=== PATIENT | male | born 1965 | race Two or more races ===

== ENCOUNTER 2022-12-09 15:19 | Outpatient (REF) | payer OTHER, SELFPAY ==
[2022-12-09 15:49] LABS: MANUAL DIFF FLAG NO
[2022-12-09 17:48] LABS: Basophils Absolute Auto 0.1 X10*3/uL (0.0-0.2); Basophils Percent Auto 0.6 % (0-2); Eosinophils Absolute Auto 0.2 X10*3/uL (0.0-0.4); Hematocrit 43.7 % (42.0-52.0); Hemoglobin 14.3 g/dl (14.0-18.0); Imm Gran Abs Auto 0.04 X10*3/uL (0.00-0.03); Imm Gran Pct Auto 0.5 % (0.0-0.4); Mean Corpuscular HGB Conc 32.7 g/dl (31.0-36.0); Mean Corpuscular Hemoglobin 26.9 pg (27.0-33.0); Mean Corpuscular Volume 82.3 fL (80.0-98.0); Mean Platelet Volume 9.6 fL (9.4-12.4); Monocytes Absolute Auto 0.8 X10*3/uL (0.1-1.2); Monocytes Percent Auto 9.8 % (2-11); Neutrophils Absolute Auto 3.8 x10*3/uL (2.0-8.3); Neutrophils Percent Auto 49.1 % (45-73); Platelet Count 241 X10*3/uL (160-400); Red Blood Count 5.31 X10*6/uL (4.60-5.80); Red Cell Distribution Width 13.5 % (11.0-16.0); White Blood Count 7.8 X10*3/uL (4.8-10.8)
[2022-12-09 18:29] LABS: Alanine Aminotransferase 36 U/L (0-40); Albumin Level 4.4 g/dL (3.5-5.0); Alkaline Phosphatase 97 U/L (39-117); Anion Gap 13 (12-20); Aspartate Amino Transferase 22 U/L (5-37); Bilirubin Total 0.6 mg/dL (0.0-1.0); Blood Urea Nitrogen 16 mg/dL (9-16); Calcium 9.7 mg/dL (8.4-10.2); Carbon Dioxide 30 mmol/L (22-29); Chloride 104 mmol/L (96-108); Cholesterol 237 mg/dL; Estimated Glomerular Filt Rate > 60; Glucose Random 86 mg/dL (60-115); HDL Cholesterol 50 mg/dL; LDL Cholesterol Calculated 152 mg/dl; Potassium 4.3 mmol/L (3.3-5.1); Sodium 143 mmol/L (135-145); Triglycerides 178 mg/dL
[2022-12-09 18:45] LABS: PSA,Total (Free>4and<10) 2.56 ng/mL (0.00-4.00); TSH reflex Free T4 0.73 uIU/mL (0.32-4.0)
== END 2022-12-09 15:20 | disposition home or self-care (01) ==
LOC: HO.LAB 15:19
PROVIDERS: PCP Nurse Practitioner Family; Visit Provider Nurse Practitioner Family
DX: Z13.220 Encounter for screening for lipoid disorders (principal); Z13.29 Encounter for screening for other suspected endocrine disorder; Z13.0 Encounter for screening for diseases of the blood and blood-forming organs and certain disorders involving the immune mechanism; Z12.5 Encounter for screening for malignant neoplasm of prostate
CPT/HCPCS: 36415; 80053; 80061; 84153; 84443; 85025

== ENCOUNTER → 2022-12-14 08:05 | Outpatient (BNVA) | payer OTHER, SELFPAY | PROVIDERS: PCP Nurse Practitioner Family; Referring Provider Nurse Practitioner Family; Visit Provider Surgery | DX: K42.9 Umbilical hernia without obstruction or gangrene (principal) | CPT/HCPCS: 99202 ==

== ENCOUNTER 2022-12-27 09:19 | Day surgery (SDC) | payer OTHER, SELFPAY ==
[2022-12-22 10:07] VITALS: BMI 33.0
--- NOTE | 2022-12-26 09:45 | HO.ANESPROP2 ---
HPI - Anesthesia Eval Consult details Narrative: 57yo M for Hernia Repair Umbilical repair mesh PMFSH Active Problems Active Problems: All Active Problems (Updated 12/10/22 @ 07:10 by JACLYN Gupta) Anxiety and depression (Acute) Umbilical hernia (Acute) Asthma (Acute) Essential hypertension (Acute) Past Medical History Medical History Anxiety and depression Asthma Umbilical hernia Family History Family History Father HTN (hypertension) Mother Diabetes Age related osteoporosis Surgical History Surgical History (Updated 12/14/22 @ 08:14 by REYNALDO Sosa) H/O vasectomy Social History Social History Household Members: Friend(s) Housing: Apartment Alcohol intake: current Alcohol intake frequency: a few times a month Patient Tobacco Use Status: Former Tobacco user service: No Current occupational status: employed Cognitive needs: No Hearing needs: No Vision needs: No Meds Allergies Allergy/AdvReac Type Severity Reaction Status Date / Time No Known Allergies Allergy Verified 12/14/22 08:13 Home Medications Medication Instructions Recorded Confirmed Last Taken Type naproxen 500 mg tablet 500 mg PO BID 11/25/22 12/22/22 Unknown History Exam Exam Date and Time: December 26, 2022 0945 Height,Weight and Vital Signs: Height 5 ft 10 in Weight 104.326 kg Pertinent Lab Results Pertinent Lab Results: Laboratory Tests 12/09/22 12/09/22 15:47 15:47 WBC 7.8 Hgb 14.3 Hct 43.7 Plt Count 241 Sodium 143 Potassium 4.3 Chloride 104 Carbon Dioxide 30 H BUN 16 Creatinine 0.85 Assessment and Plan Assessment Anesthesia Assessment: Chart Reviewed
--- NOTE | 2022-12-26 20:18 | MHC.SHP ---
Pre-Procedural Eval Section A Date of Service: 12/27/22 The patient is an INPATIENT: No Changes since office visit: No Cold of Flu in the past 2 weeks, No New Medical Problems, No Changes in Medication and No Patient answered all questions The History & Physical has been completed within 30 days and I have reviewed it.: Yes Section B Chief Complaint: Umbilical hernia without obstruction or gangrene Allergies: Allergies Allergy/AdvReac Type Severity Reaction Status Date / Time No Known Allergies Allergy Verified 12/14/22 08:13 Plan I have reviewed the history and physical and performed a pertinent physical examination on my patient. No changes have occurred unless specified. Time Spent With Patient Time: Total time managing care of this patient today ____ minutes.
[2022-12-27] VITALS (7 sets, daily range): BP systolic 124–163; BP diastolic 78–89; PULSE 65–75; RESP 16–18; TEMP 36.1–36.5; O2SAT 93–97
--- NOTE | 2022-12-27 09:21 | HO.ANESPROP2 ---
HPI - Anesthesia Eval Consult details Narrative: Umbilical hernia repair PMFSH Active Problems Active Problems: All Active Problems (Updated 12/10/22 @ 07:10 by JACLYN Gupta) Anxiety and depression (Acute) Umbilical hernia (Acute) Asthma (Acute) Essential hypertension (Acute) Past Medical History Medical History Anxiety and depression Asthma Umbilical hernia Family History Family History Father HTN (hypertension) Mother Diabetes Age related osteoporosis Family history of problems with anesthesia: No Surgical History Surgical History (Updated 12/14/22 @ 08:14 by REYNALDO Sosa) H/O vasectomy History of Problems with Anesthesia: No Social History Social History Household Members: Friend(s) Housing: Apartment Alcohol intake: current Alcohol intake frequency: a few times a month Patient Tobacco Use Status: Former Tobacco user Use of substances other than those prescribed or required for medical reasons: No Are you DNR?: No Advance Directives: No Advance Directives Information Provided: Yes Recently lost weight without trying: No Nutrition Risks: No Nutritional Risk service: No Current occupational status: employed Cognitive needs: No Hearing needs: No Vision needs: No Meds Allergies Allergy/AdvReac Type Severity Reaction Status Date / Time No Known Allergies Allergy Verified 12/14/22 08:13 Home Medications Medication Instructions Recorded Confirmed Last Taken Type naproxen 500 mg tablet 500 mg PO BID 11/25/22 12/22/22 Unknown History tramadol 50 mg tablet 50 mg PO Q6-8H PRN pain 11/25/22 12/22/22 Unknown History Exam Exam Date and Time: December 27, 2022 0921 Height,Weight and Vital Signs: Height 5 ft 10 in Weight 104.326 kg Airway Mallampati Class: II TM Dist: >3cm Neck ROM: Limited Heart: rrr Lungs: cta Assessment and Plan Assessment Anesthesia Assessment: Anesthesia Plan Discussed and Chart Reviewed Final Anesthetic Review Family History of Problems with Anesthesia: No History of Problems with Anesthesia: No NPO: Yes ASA Class: II Final Preanesthetic Review: No Changes in Pt Med Stat, Meds/Allgs Chart Reviewed, Consent Obtained/Reviewed and Anes Risks/Benef Reviewed Patient Risk: Intermediate Procedure Risk: Intermediate Anesthetic Plan Anesthetic Plan: GA Disposition: Standard PACU
[2022-12-27] MEDS: Lactated Ringers 1,000 ML 100 ML IVCONT (10:07)
--- NOTE | 2022-12-27 12:44 | W.PM.OPN ---
Operative Note Operative Note Date of Service: 12/27/22 Narrative: Preoperative diagnosis: [] incarcerated umbilical hernia Postop diagnosis: [] same Procedure [] repair incarcerated umbilical hernia with Bard mesh Surgeon: [] Gee Foam Rubber Molder: [] varun Parham Type of Anesthesia: [] general Indication for surgery: [] symptomatic enlarging umbilical hernia Findings: [] incarcerated umbilical hernia with omental contents. Patient about the operating room, placed on operative table in a supine position, after adequate level of general anesthesia was induced, the patient abdomen which was moderately corpulent was prepped and draped in usual sterile fashion. Using an infraumbilical curvilinear incision, this carried down through skin, subcutaneous tissue, hernia sac was identified. This was from the posterior aspect of the umbilicus and dissected down to the fascia. Sac was opened and findings were as noted above. The hernia Sac was circumferentially dissected free from the fascia and amputated using Bovie. Similarly the incarcerated omentum was amputated using using Bovie. Fascia margins were cleared. A Bard mesh was placed in this defect and sutured circumferentially from the superficial layer of the mesh to the surrounding fascia using 0 tycron sutures. At completion of the procedure, mesh was in good position with with no tension. The wound Was irrigated, secured hemostasis, and closed in the following manner; posterior aspect of the umbilicus was tacked to the wound floor using up to 3-0 Vicryl sutures. Interrupted inverted dermal 3-0 Vicryl sutures followed by Steri-Strips and sterile dressings were applied. Wound was infiltrated 0.5% Marcaine with epinephrine a completion. Sponge, needle, and instrument counts were reported to be correct. Patient tolerated the procedure well and emerged anesthesia stable condition. EBL minimum
[2022-12-27] MEDS: oxyCODONE HCl Immed Release 5 MG TABLET PO (12:46)
== END 2022-12-27 13:53 | disposition home or self-care (01) ==
PROVIDERS: PCP Nurse Practitioner Family; Visit Provider Surgery
PROC: (CPT 49594; principal; 2022-12-27 11:20)
DX: K42.0 Umbilical hernia with obstruction, without gangrene (principal); J45.909 Unspecified asthma, uncomplicated; F41.8 Other specified anxiety disorders; Z98.52 Vasectomy status; Z79.1 Long term (current) use of non-steroidal anti-inflammatories (NSAID); Z79.899 Other long term (current) drug therapy
CPT/HCPCS: 49594; 88304; C1781; J0131; J0690; J1100; J1885; J2250; J2405; J3010

== ENCOUNTER → 2023-01-05 10:58 | Outpatient (BNVA) | payer OTHER, SELFPAY | PROVIDERS: PCP Nurse Practitioner Family; Visit Provider Surgery ==

== ENCOUNTER 2023-01-09 08:21 | Outpatient (REF) | payer OTHER, SELFPAY ==
[2023-01-09 09:14] LABS: Uric Acid 7.3 mg/dL (3.4-7.0)
== END 2023-01-09 08:22 | disposition home or self-care (01) ==
LOC: HO.LAB 08:21
PROVIDERS: PCP Nurse Practitioner Family; Visit Provider Nurse Practitioner Family
DX: M10.9 Gout, unspecified (principal)
CPT/HCPCS: 36415; 84550

== ENCOUNTER 2023-04-05 15:31 | Outpatient (AMB) | payer OTHER, SELFPAY ==
[2023-04-05 15:50] VITALS: BP 147/94; PULSE 67; BMI 32.8
--- NOTE | 2023-04-05 15:50 | A.OFFVIS_ITS ---
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 male with past medical history of anxiety, asthma, hypertension, umbilical hernia, gout is here today for pre colonoscopy screening.? Patient was sent to us by his PCP.? Patient denies any gastrointestinal symptoms in the past or at present.? Denies any personal or family history of gastrointestinal disease, colon polyps, or cancer.? Denies history of difficulty with sedation or anesthesia in the past.? Negative for history of sleep apnea.? Denies any history of cardiac, renal, pulmonary, or hepatic disease.?? No history of infectious? diseases like hepatitis A, B, C, HIV or tuberculosis.? Patient is not on any anticoagulation therapy. PFSH Medical History Anxiety and depression Asthma Gout Umbilical hernia Surgical History H/O vasectomy Hx of umbilical hernia repair Family History Father HTN (hypertension) Mother Diabetes Age related osteoporosis Social History Household Members: Friend(s) Housing: Apartment Alcohol intake: current Alcohol intake frequency: a few times a month Patient Tobacco Use Status: Former Tobacco user e-Cigarette/Vaping Use: Never Used Second Hand Smoke Exposure: No service: No Current occupational status: employed Cognitive needs: No Hearing needs: No Vision needs: No Review of Systems Const Denies weight gain and Denies weight loss ENT Reports no additional complaints, Denies dysphagia and Denies odynophagia Card Reports no additional complaints Resp Reports no additional complaints GI Denies abdominal pain, Denies belching, Denies melena, Denies bloating, Denies change in bowel habits, Denies dysphagia, Denies excessive flatus, Denies dyspepsia, Denies heartburn, Denies diarrhea, Denies loose stools, Denies nausea, Denies odynophagia and Denies vomiting Reports no additional complaints Musc Reports no additional complaints Neuro Reports no additional complaints Psych Reports no additional complaints Endo Reports no additional complaints Physical Exam Vital Signs: Last Vital Signs Pulse 67 04/05/23 15:50 BP 147/94 H 04/05/23 15:50 BMI result Body Mass Index 32.8 Const General: cooperative, healthy appearing and comfortable Nutritional Appearance: obese Orientation/consciousness: patient oriented x3 Limitations: no limitations HEENT Head: Yes normal to inspection Ears: hearing grossly normal bilaterally General nose exam: Normal external nose present Face and sinus: Yes normal facial exam Mouth: Normal oral and palatal mucosa present Throat: Yes posterior oropharynx normal Eyes General: appearance normal, both eyes and all related structures Eyelids: Yes eyelids normal Conjunctivae: conjunctivae normal Sclerae: sclerae normal Pupils: Equal, round and reactive pupils present Neck Neck: Yes normal visual inspection, Yes full ROM, Yes no lymphadenopathy, Yes trachea midline and Yes supple Thyroid: Thyroid normal Lymphatic: no lymphadenopathy noted Chest Chest palpation & inspection: normal inspection of the chest Resp Effort & Inspection: normal respiratory effort and able to speak in complete sentences Auscultation: clear to auscultation bilaterally Cardio Rate: regular rate Rhythm: regular rhythm Heart sounds: S1 normal heart sound present and S2 normal heart sound present Peripheral pulses: Peripheral pulses 2+ throughout GI Inspection: Yes normal to inspection, No distended and Yes obesity Palpation (GI): No hepatosplenomegaly present and No Rebound tenderness present Percussion: Yes normal to percussion Auscultation: normal bowel sounds Back/Spine/Pelvis Cervical Spine: cervical ROM normal and No cervical muscular tenderness Thoracic/Lumbar Spine: thoracic and lumbar spine normal to inspection Skin General skin exam: no rashes or lesions noted, elasticity normal and turgor normal Neuro General: patient oriented x3 Cranial nerves: Yes Equal, round and reactive pupils present Extrem General: Yes normal to inspection, Yes full ROM and Yes capillary refill normal Psych Appearance: grossly normal Mental Status: mental status grossly normal Speech and movement: Normal speech and movement present Assessment & Plan Assessment & Plan (1) Screen for colon cancer: Code(s): Z12.11 - Encounter for screening for malignant neoplasm of colon Plan: Patient denies any GI, cardiac or respiratory symptoms.? Denies any issues with anesthesia in the past.? Denies any history of sleep apnea.? No history infectious diseases in the past or present.? Not on any anticoagulation therapy.? No family or personal history of colon cancer or polyps.? Patient denies melena, hematochezia, unintentional weight loss or ribbon like stools.? Discussed at length the pre-procedure,? prep, diet & medications as well as what to expect prior, during and after the procedure.?? Stressed the importance of good bowel prep. ?Recommended the use of Vaseline or Calmoseptine OTC & baby wipes with bowel movements to promote comfort.? ?Patient verbalizes understanding and agrees to plan of care.? He was given the opportunity to ask questions and all questions answered.? We will see him after the procedure.? Medications: New bisacodyl (Dulcolax (bisacodyl)) take 2 tabs at noon the day before your colonoscopy 20 mg (4 x 5 mg) PO ONCE 4 tabs 0RF 1 day Z12.11 - Encounter for screening for malignant neoplasm of colon polyethylene glycol 3350 (Miralax) As directed by gastroenterology department at [facility] 238 grams PO ONCE 238 grams 0RF Z12.11 - Encounter for screening for malignant neoplasm of colon Coding Level of Care Code New Pt Level 3 (02599) Diagnoses Screen for colon cancer Z12.11 Time Spent (min) 40 Comment 30 minutes spent with patient and additional 10 minutes spent reviewing his records
== END 2023-04-05 16:29 | disposition home or self-care (01) ==
PROVIDERS: Visit Provider Nurse Practitioner Family
DX: Z01.818 Encounter for other preprocedural examination (principal); Z12.11 Encounter for screening for malignant neoplasm of colon
CPT/HCPCS: 99214

== ENCOUNTER → 2023-04-05 15:31 | Outpatient (BNVA) | payer OTHER, SELFPAY | PROVIDERS: Visit Provider Nurse Practitioner Family ==

== ENCOUNTER 2023-04-11 14:23 | Outpatient (AMB) | payer OTHER, SELFPAY ==
[2023-04-11 14:32] VITALS: BP 130/92; PULSE 73; O2SAT 98; BMI 32.9
--- NOTE | 2023-04-11 14:32 | A.OFFPC_ITS ---
Vital Signs 04/11/23 14:32 Height 5 ft 10 in Weight 229 lb BMI 32.9 BP 130/92 H Blood Pressure Location Lt brachial Position Sitting Pulse 73 Pulse Source Pulse Oximeter Temp Source Skin Pulse Oximetry (%) 98 Oxygen Delivery Method Room Air Intake Visit Reasons: 3M follow up HTN Intake Note: Patient is here to follow up on HTN Vehicle Damage Appraiser Required: No Allergies No Known Allergies Allergy (Verified 04/11/23 14:33) Tobacco use date assessed: 04/11/23 HPI HPI Comments History of Present Illness Details 57-year-old male new patient presents today for follow up visit.Past medical history significant for asthma and hypertension. Review of the notes and patient was treated for an asthma exacerbation at the walk in clinic in january. Patient reports breathing is better, has not required inhaler since last month. Patient states left elbow pain since hit his elbow at work years ago. Patient states tylenol and ibuprofen with no relief .Patient states took oxycodone from a friend for pain that helped. Patient advised not to take medications from other people.Patient has tried naproxene in the past for knee pain with good effect. [facility] Medical History Anxiety and depression Asthma Gout Umbilical hernia Surgical History H/O vasectomy Hx of umbilical hernia repair Family History Father HTN (hypertension) Mother Diabetes Age related osteoporosis Social History Household Members: Friend(s) Housing: Apartment Alcohol intake: current Alcohol intake frequency: a few times a month Patient Tobacco Use Status: Former Tobacco user e-Cigarette/Vaping Use: Never Used Second Hand Smoke Exposure: No service: No Current occupational status: employed Cognitive needs: No Hearing needs: No Vision needs: No Questionnaire Thrive Questionnaire Date Thrive assessed: 12/09/22 AUDIT C Alcohol Use Questionnaire (AUDIT-C) 1. How often do you have a drink containing alcohol?: Monthly or less 2. How many drinks containing alcohol do you have on a typical day when you are drinking?: 1 or 2 3. How often do you have six or more drinks on one occasion?: Never Total Score: 1 HORTENCIA-7 AMB Questionnaire HORTENCIA-7 Date HORTENCIA - 7 assessed: 12/09/22 Source: Developed by Drs. Olaf Thayer, Lias Joya, Truman Yoon and colleagues, with an educational marianna from [employer]. Review of Systems Const Denies chills, Denies fatigue, Denies fever(s) and Denies poor appetite Eyes Denies no additional complaints ENT Reports Normal hearing present Card Denies chest pain, Denies syncope, Denies rapid heart rate and Denies dyspnea Resp Denies cough and Denies dyspnea GI Denies change in stool character, Denies constipation, Denies diarrhea, Denies nausea and Denies vomiting Denies dysuria, Denies urinary frequency and Denies urinary urgency Musc Reports arthralgias (left elbow pain ) Neuro Reports Normal hearing present, Denies confusion and Denies syncope Psych Denies confusion Endo Denies fatigue Physical exam (Primary Care) Vital Signs: Last Vital Signs Pulse 73 04/11/23 14:32 BP 130/92 H 04/11/23 14:32 Pulse Ox 98 04/11/23 14:32 Oxygen Delivery Method Room Air 04/11/23 14:32 BMI result Body Mass Index 32.9 Tobacco/Smoking Status: Tobacco use Status Tobacco use date assessed 04/11/23 04/11/23 14:33 Patient Tobacco Use Status Former Tobacco user 04/11/23 14:33 e-Cigarette/Vaping Use Never Used 04/11/23 14:33 Thrive Assessment: Date of Thrive Assessment Date Thrive assessed 12/09/22 04/11/23 14:33 Const General: No confusion Orientation/consciousness: No confusion [facility] Head: Yes normocephalic and Yes atraumatic Eyes Conjunctivae: conjunctivae normal Chest Chest palpation & inspection: normal inspection of the chest Resp Effort & Inspection: normal respiratory effort Auscultation: clear to auscultation bilaterally, no crackles, no rhonchi and no wheezes Cardio Rate: regular rate Rhythm: regular rhythm Heart sounds: S1 normal heart sound present and S2 normal heart sound present GI Inspection: Yes normal to inspection Neuro General: No confusion Cranial nerves: Yes Normal hearing present Extrem General: No edema Right upper extremity: normal to inspection, full ROM and normal capillary refill Left upper extremity: normal to inspection, normal capillary refill and elbow/forearm Details: normal to inspection, tenderness Location: of the lateral epicondyle, abnormal ROM Details: pain with active ROM and pain with passive ROM and distal pulses intact; no swelling, no unusual warmth, no ecchymosis and no crepitus Assessment and Plan Assessment & Plan (1) Essential hypertension: Code(s): I10 - Essential (primary) hypertension Plan: Continue on metoprolol 100mg daily follow low salt diet and excercise. b/p goal < 140/90. (2) Asthma: Code(s): J45.909 - Unspecified asthma, uncomplicated Plan: Continue to use albuterol prn. Patient denies sob and wheezing at this time. (3) Borderline hyperlipidemia: Code(s): E78.5 - Hyperlipidemia, unspecified Plan: Continue to follow low cholesterol diet. (4) Left elbow pain: Code(s): M25.522 - Pain in left elbow Plan: Possibly related to left elbow tendinitis, left elbow xray ordered. Referral placed to physical therapy Take naproxen as needed with food to prevent GI upset. Orders: Orders PT Evaluation and Treatment Today M25.522 - Pain in left elbow XR elbow LT 2V Today M25.522 - Pain in left elbow Medications: Refilled naproxen 500 mg PO BID PRN 20 tabs 0RF pain M25.561 - Pain in right knee metoprolol succinate ER 100 mg PO DAILY 90 tabs 1RF Coding Level of Care Code Est Pt Level 3 (50006) Diagnoses Essential hypertension I10 Asthma J45.909 Borderline hyperlipidemia E78.5 Left elbow pain M25.522
== END 2023-04-11 14:52 | disposition home or self-care (01) ==
PROVIDERS: Visit Provider Nurse Practitioner Family
DX: I10 Essential (primary) hypertension (principal); J45.909 Unspecified asthma, uncomplicated; E78.5 Hyperlipidemia, unspecified; M25.522 Pain in left elbow
CPT/HCPCS: 99213

== ENCOUNTER 2023-04-11 15:12 | Outpatient (REF) | payer OTHER, SELFPAY ==
--- NOTE | ~2023-04-11 | XR_ITS ---
EXAMINATION: XR KNEE, RIGHT CLINICAL INFORMATION: Pain. COMPARISON: None available. TECHNIQUE: AP and lateral views of the right knee. FINDINGS: Bony alignment and mineralization are normal. The lateral, medial and patellofemoral joint space compartments are well-maintained. There is minimal tricompartment osteoarthritic change. No fracture, dislocation or significant joint effusion is seen. There is no foreign body. XR/XR knee RT 2V IMPRESSION: 1. There is minimal tricompartment osteoarthritic change of the right knee. 2. No right knee fracture, dislocation or effusion is noted.
--- NOTE | ~2023-04-11 | XR_ITS ---
EXAMINATION: XR ELBOW, LEFT CLINICAL INFORMATION: Pain. COMPARISON: None available. TECHNIQUE: AP, lateral, and oblique views of the left elbow. FINDINGS: The bones and soft tissues are normal. No fracture or joint effusion. Alignment is anatomic. Joint spaces are maintained. XR/XR elbow LT 2V IMPRESSION: Normal left elbow.
== END 2023-04-11 15:13 | disposition home or self-care (01) ==
LOC: HO.XRAY 15:12
PROVIDERS: PCP Nurse Practitioner Family; Visit Provider Nurse Practitioner Family
DX: M25.522 Pain in left elbow (principal); M25.561 Pain in right knee
CPT/HCPCS: 73070; 73560

== ENCOUNTER 2023-04-19 11:38 | Outpatient (AMB) | payer OTHER, SELFPAY ==
--- NOTE | 2023-04-19 11:39 | AM.OFFWIN_ITS ---
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 Pt states he was injured at work around 6 years ago. Pt states that it is now affecting him to the point where he drops things. Pt states his elbow is very painful and doesn't allow him to get good rest. Patient Tobacco Use Status: Former Tobacco user Allergies No Known Allergies Allergy (Verified 04/19/23 11:40) Do you need a note to return to daycare/school/sports/work: No HPI HPI Comments History of Present Illness Details 1148 This is a 57-year-old male presenting with left elbow pain progressively worsening over the past 6 years, patient reports this was a work related injury 6 years ago and since then he has been having difficulties with his left elbow. He reports recently pain has been increasing and he has been having difficulty grasping objects, at times he drops things, reports severe pain particularly at night when he is sleeping. He tells me he has had a lot of sleep last night secondary to pain. He denies any new trauma. Patient denies numbness, tingling, new injury, fevers, chills, chest pain, shortness of breath, nausea, vomiting. Physical exam + elbow flexion test and +TTP to L olecronon. . Left elbow pain likely secondary to cubital tunnel syndrome versus inflammatory arthritis or other nerve injury likely chronic and worsening. Unlikely septic joint, NV compromise Plan- ortho consult, imaging. Educated patient on diagnosis and treatment plan, answered all question, patient verbalizes understanding. At this time patient will be discharged home, advised to return with new or worsening symptoms. Educated on worrisome signs and symptoms and when to return. At this time I feel comfortable discharge home. COUNT INCLUDES THE [facility] Medical History Anxiety and depression Asthma Gout Umbilical hernia Surgical History H/O vasectomy Hx of umbilical hernia repair Family History Father HTN (hypertension) Mother Diabetes Age related osteoporosis Social History Household Members: Friend(s) Housing: Apartment Alcohol intake: current Alcohol intake frequency: a few times a month Patient Tobacco Use Status: Former Tobacco user e-Cigarette/Vaping Use: Never Used Second Hand Smoke Exposure: No service: No Current occupational status: employed Cognitive needs: No Hearing needs: No Vision needs: No Review of Systems Const Details: Constitutional : No Weight loss, No Fever, No Chills, No Fatigue, No Malaise ENT/Mouth : No sore throat, No Rhinorrhea Eyes: No Eye Pain, No Swelling, No Redness Cardiovascular : No Chest Pain, No SOB, No Dyspnea on Exertion, No Orthopnea, No Edema, No Palpitations Respiratory : No Cough, No Sputum, No Wheezing Gastrointestinal : No Nausea, No Vomiting, No Diarrhea, No Constipation, No abdominal Pain, No Hematochezia, No Melena Genitourinary : No Dysuria, No Urinary Frequency, No Hematuria, Musculoskeletal : + joint pain, No Myalgias, No Joint Swelling Skin : No Skin Lesions, No rash Neuro : No Weakness, No Numbness, No Dizziness, No Headache Psych : No Anxiety/Panic, No Depression All other systems reviewed and are negative All systems reviewed & are unremarkable except as noted in HPI and below Physical Exam Vital Signs: Last Vital Signs Temp 98.4 F 04/19/23 11:42 Pulse 77 04/19/23 11:42 BP 134/76 04/19/23 11:42 Pulse Ox 99 04/19/23 11:42 Oxygen Delivery Method Room Air 04/19/23 11:42 vss Appearance: Alert.? Oriented X3.? No acute distress.? Head: Normocephalic, atraumatic, no step-offs or deformities Eyes: Pupils equal, round and reactive to light.? ENT: Pharynx normal.? Neck: Normal inspection.? Neck supple.? CVS: Normal heart rate and rhythm.? Pulses normal.? Respiratory: No respiratory distress.? Breath sounds normal.? Abdomen: Soft and nontender.? Skin: Skin warm and dry.? Normal skin color.? Normal skin turgor.? Extremities: No lower extremity edema.? No calf ttp. 5/5 strength to bilateral upper and lower extremities. + full range of motion to bilateral elbows+ TTP to L olecronon. ., 2+ brachial and radial pulses equal bilateral. No wrist drop. Normal capillary there is however a positive elbow flexion test noted. Back: No midline tenderness, no C-spine tenderness, full range of motion, no CVA tenderness bilaterally Neuro: Oriented X 3.? No motor deficit.? No sensory deficit. CN 2-12 intact Assessment & Plan Assessment & Plan (1) Left elbow pain: Code(s): M25.522 - Pain in left elbow Plan Take your medications as prescribed. If you were prescribed antibiotics today, it is important that you take your medication to their entirety, do not skip any doses, do not finish them early. Follow-up with your primary care provider this week. Return to the emergency department with new or worsening symptoms. Such as fevers, chills, chest pain, shortness of breath, nausea, vomiting, dizziness, headache, vision changes, lethargy In case of emergency call 911 Orders: Orders XR elbow LT 2V Today M25.522 - Pain in left elbow Referrals Orthopedics Referral M25.522 - Pain in left elbow Medications: New prednisone 20 mg PO DAILY 5 days 5 tabs 0RF naproxen 500 mg PO BID PRN 14 tabs 0RF pain Coding Level of Care Code Est Pt Level 3 (14439) Diagnoses Left elbow pain M25.522
[2023-04-19 11:42] VITALS: BP 134/76; PULSE 77; TEMP 36.9; O2SAT 99
== END 2023-04-19 12:04 | disposition home or self-care (01) ==
PROVIDERS: PCP Nurse Practitioner Family; Visit Provider Physician Assistant
DX: M25.522 Pain in left elbow (principal)
CPT/HCPCS: 99213

== ENCOUNTER 2023-04-19 12:00 | Outpatient (REF) | payer OTHER, SELFPAY ==
--- NOTE | ~2023-04-19 | XR_ITS ---
EXAMINATION: XR ELBOW, LEFT CLINICAL INFORMATION: Left elbow pain. COMPARISON: 04/11/2023 left elbow radiographs. TECHNIQUE: AP, lateral, and oblique views of the left elbow. An indicator arrow points to the lateral left elbow. FINDINGS: The bones and soft tissues are normal. No fracture or joint effusion. Alignment is anatomic. Joint spaces are maintained. XR/XR elbow LT 2V IMPRESSION: Unremarkable left elbow.
== END 2023-04-19 12:01 | disposition home or self-care (01) ==
LOC: HO.HMGCX 12:00
PROVIDERS: PCP Nurse Practitioner Family; Visit Provider Physician Assistant
DX: M25.522 Pain in left elbow (principal)
CPT/HCPCS: 73070

== ENCOUNTER 2023-05-03 08:20 | Outpatient (AMB) | payer OTHER, SELFPAY ==
--- NOTE | 2023-05-03 08:32 | A.OFFVIS_ITS ---
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 Patient states he had a work injury about 6 yrs ago where he injured his elbow by banging it on a hard metal piece. Pt states that it is now affecting him to the point where he drops things. Patient states his elbow is very painful and doesn't allow him to get good rest. States he is having numbness and tingling that increases at night time. Primary Clinician Required: Yes Allergies No Known Allergies Allergy (Verified 05/03/23 08:35) Medication List - Last Reconciled 05/03/23 by Екатерина Castañeda MD albuterol sulfate 90 mcg/actuation 2 puffs inhalation Q6H PRN albuterol sulfate 90 mcg/actuation 2 puffs inhalation Q6H PRN benzonatate 100 mg PO BID PRN bisacodyl (Dulcolax (bisacodyl)) 20 mg (4 x 5 mg) PO ONCE 1 day metoprolol succinate ER 100 mg PO DAILY naproxen 500 mg PO BID PRN naproxen 500 mg PO BID PRN polyethylene glycol 3350 (Miralax) 238 grams PO ONCE prednisone 20 mg PO DAILY 5 days HPI HPI Comments History of Present Illness Details He has tried a counterforce brace which did not work. However on further history, it did not seem like he was doing it the right way. Normal xrays. Points to left lateral elbow, radiates to biceps. Pain with bending elbow. Wrist ok. 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 No other Treatment done so far: therapy - none yet injection - none yet PFSH Medical History (Updated 05/03/23 @ 08:53 by Екатерина Castañeda MD) Anxiety and depression Asthma Gout Lateral epicondylitis Umbilical hernia Surgical History H/O vasectomy Hx of umbilical hernia repair Family History Father HTN (hypertension) Mother Diabetes Age related osteoporosis Social History (Updated 05/03/23 @ 08:36 by ALFREDITO Castellano) Household Members: Friend(s) Housing: Apartment Alcohol intake: current Alcohol intake frequency: a few times a month Patient Tobacco Use Status: Former Tobacco user e-Cigarette/Vaping Use: Never Used Second Hand Smoke Exposure: No service: No Current occupational status: employed 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 MSK: Inspection reveals appropriate head and neck positioning. No pain with palpation over the neck musculature. Cervical ROM was full. Spurling's sign negative. Bilateral shoulder ROM WNL. No ligamentous laxity or crepitance. No increased effusion. Hawkin's test is positive slightly on left. No joint effusion noted. No deformity noted. No intrinsic hand weakness noted. No atrophy noted. Temi test negative. Carpal compression test positive on left wrist. Tinel sign negative. Tender on left lateral epicondyle. More pain with resisted wrist extension. Strength is 5/5 in all muscle groups tested. No increased tone noted. Neurological: Neurologic examination of the upper and lower extremities was nonfocal with intact sensation, muscle stretch reflexes and without focal motor deficits . Park?s negative bilaterally. Babinski was down going bilaterally. Clonus was negative. Gait is non-antalgic without loss of balance. Results Reviewed Results Reviewed: I independently reviewed the results of the following: Left elbow x-ray was normal. I reviewed records from the following: PCP Assessment & Plan Assessment & Plan (1) Lateral epicondylitis: Code(s): M77.10 - Lateral epicondylitis, unspecified elbow Plan: Patient was referred primarily for left elbow pain which on exam appears to be left lateral epicondylitis, also known as tennis elbow or common extensor tendinitis. He wasn't wearing the counter force brace the right way. We taught him how to and advised to wear everyday, all day. If not better on follow up, we can trial steroid injection. (2) Shoulder pain: Code(s): M25.519 - Pain in unspecified shoulder Plan: Coincidentally found left shoulder pain. Rule out DJD or impingement. Will send for xray today. (3) Carpal tunnel syndrome of left wrist: Code(s): G56.02 - Carpal tunnel syndrome, left upper limb Plan: Also has left hand numbness that suggests CTS. Will schedule for EMG. Plan Assessment and plan discussed with patent, and patient was agreeable. All questions were answered thoroughly. Follow up in 1 month. Orders: Orders NE nerve conduction velocity Today G56.02 - Carpal tunnel syndrome, left upper limb XR shoulder LT min 2V Today M25.519 - Pain in unspecified shoulder Coding Level of Care Code New Pt Level 4 (43698) Diagnoses Lateral epicondylitis M77.10 Shoulder pain M25.519 Carpal tunnel syndrome of left wrist G56.02
[2023-05-03 08:36] VITALS: BMI 32.9
== END 2023-05-03 09:17 | disposition home or self-care (01) ==
PROVIDERS: PCP Nurse Practitioner Family; Visit Provider Physical Medicine & Rehabilitation
DX: M77.10 Lateral epicondylitis, unspecified elbow (principal); M25.519 Pain in unspecified shoulder; G56.02 Carpal tunnel syndrome, left upper limb
CPT/HCPCS: 99204

== ENCOUNTER 2023-05-03 08:20 | Outpatient (REF) | payer OTHER, SELFPAY ==
--- NOTE | ~2023-05-03 | XR_ITS ---
EXAMINATION: XR SHOULDER, LEFT CLINICAL INFORMATION: Left shoulder pain COMPARISON: None available. TECHNIQUE: AP external rotation, Grashey views of the left shoulder. FINDINGS: Acromioclavicular joint space narrowing. No fracture or dislocation. Visualized lung and ribs are unremarkable. XR/XR shoulder LT min 2V IMPRESSION: Degenerative changes left shoulder. No acute bony pathology.
== END 2023-05-03 08:21 | disposition home or self-care (01) ==
LOC: HO.HOSX 08:20
PROVIDERS: PCP Nurse Practitioner Family; Visit Provider Physical Medicine & Rehabilitation
DX: M25.512 Pain in left shoulder (principal); M77.12 Lateral epicondylitis, left elbow; G56.02 Carpal tunnel syndrome, left upper limb
CPT/HCPCS: 73030; 99202

== ENCOUNTER 2023-05-05 09:02 | Outpatient (REF) | payer OTHER, SELFPAY ==
--- NOTE | 2023-05-05 09:47 | P.EMGPH_ITS ---
Physiatry - EMG/NCS EMG/NCS Chief complaint: Patient seen previously by me. Left hand numbness, elbow pain and shoulder pain. Reason for referral: Evaluate for Carpal Tunnel Syndrome Procedure done: Left upper extremity NCS/EMG Precautions and/or limitations: None The limb temperature was monitored continuously and remained between 32-36 degrees C during the performance of the NCS. FINDINGS: Left median motor nerve showed prolonged distal latency, normal amplitude and normal conduction velocity. Left median sensory nerve showed prolonged peak latency. All other nerves tested were within normal. Concentric needle EMG was performed in selected muscles of the left upper extremity. Study did not reveal signs of electric abnormalities as shown in the table below. Nerve Conduction Studies Anti Sensory Summary Table ?Stim Site NR Onset (ms) Norm Onset (ms) Peak (ms) Norm Peak (ms) O-P Amp (?V) Norm O-P Amp Site1 Site2 Delta-0 (ms) Dist (cm) Rakesh (m/s) Norm Rakesh (m/s) Left Median Anti Sensory (2nd Digit) Wrist ? 3.5 4.3 <3.6 11.0 >10 Wrist 2nd Digit 3.5 14.0 40 Left Radial Anti Sensory (Thumb) Forearm ? 1.6 2.3 <3.1 20.8 Forearm Thumb 1.6 0.0 Left Ulnar Anti Sensory (5th Digit) Wrist ? 2.7 3.2 <3.7 19.8 >15.0 Wrist 5th Digit 2.7 14.0 52 Motor Summary Table ?Stim Site NR Onset (ms) Norm Onset (ms) O-P Amp (mV) Norm O-P Amp iAmp (mV) Amp (1st) (%) Site1 Site2 Delta-0 (ms) Dist (cm) Arkesh (m/s) Norm Rakesh (m/s) Left Median Motor (Abd Poll Brev) Wrist ? 4.1 <3.9 5.7 >4.5 7.8 100.0 Elbow Wrist 3.9 23.0 59 >45 Elbow ? 8.0 5.1 7.0 89.5 Left Ulnar Motor (Abd Dig Minimi) Wrist ? 2.4 <3.0 6.6 >5 9.0 100.0 B Elbow Wrist 3.8 21.0 55 >45 B Elbow ? 6.2 6.3 8.3 95.5 A Elbow B Elbow 1.6 10.0 63 >45 A Elbow ? 7.8 6.1 8.0 92.4 EMG ?Side Muscle Nerve Root Ins Act Fibs Psw Amp Dur Poly Recrt Int Pat Comment Left 1stDorInt Ulnar C8-T1 Nml Nml Nml Nml Nml 0 Nml Complete Left FlexCarRad Median C6-7 Nml Nml Nml Nml Nml 0 Nml Complete Left Biceps Musculocut C5-6 Nml Nml Nml Nml Nml 0 Nml Complete Left Triceps Radial C6-7-8 Nml Nml A Nml Nml Nml 0 Nml Complete Left Deltoid Axillary C5-6 Nml Nml Nml Nml Nml 0 Nml Complete IMPRESSION: 1. This is an abnormal study. 2. There is electrodiagnostic evidence for left moderate-severe median neuropathy at the wrist, consistent with Carpal Tunnel Syndrome.. 3. There is no electrodiagnostic evidence for ulnar neuropathy, brachial plexopathy, or cervical radiculopathy. CLINICAL COMMENT: Patient is considering surgery for Carpal Tunnel Syndrome. Will refer to Dr. Ramirez. Thank you for your kind referral. Екатерина Castañeda MD, KATHARINE Board Certified, [place] [employer] and [employer] (ABPMR) Board Certified, [place] Board [employer] Electrodiagnostic [employer] (ABEM)
== END 2023-05-05 09:03 | disposition home or self-care (01) ==
LOC: HO.NEURO 09:02
PROVIDERS: PCP Nurse Practitioner Family; Visit Provider Physical Medicine & Rehabilitation
DX: G56.02 Carpal tunnel syndrome, left upper limb (principal)
CPT/HCPCS: 95860; 95886; 95907; 95909

== ENCOUNTER → 2023-05-05 09:02 | Outpatient (BNV) | payer OTHER, SELFPAY | PROVIDERS: PCP Nurse Practitioner Family; Visit Provider Physical Medicine & Rehabilitation | DX: G56.12 Other lesions of median nerve, left upper limb (principal); G56.02 Carpal tunnel syndrome, left upper limb | CPT/HCPCS: 95886; 95909 ==

== ENCOUNTER 2023-05-16 11:53 | Outpatient (AMB) | payer OTHER, SELFPAY ==
--- NOTE | 2023-05-16 12:49 | MHC.OFFWIV ---
Intake Vital Signs 05/16/23 12:51 Weight 104.78 kg BP 140/100 H Blood Pressure Location Rt brachial Position Sitting Pulse 63 Pulse Source Pulse Oximeter Pulse Oximetry (%) 98 Oxygen Delivery Method Room Air Intake Visit Reasons: Est/Right side neck/arm pain Intake Note: Patient here for left sided pain. he was referred to ortho and was told he has severe carpal tunnel and would need surgery at some point and was advised that if the pain worsened to come and be seen and they would give him a injection but he called ortho and was told it wouldnt be at the next appt. He states that the pain is ivan bad its going to up the neck and causing him to get dizzy. Patient Tobacco Use Status: Former Tobacco user Allergies No Known Allergies Allergy (Verified 05/16/23 12:55) Do you need a note to return to daycare/school/sports/work: No HPI HPI Comments History of Present Illness Details [id number] 57-year-old gentleman history of carpal tunnel, gout, anxiety, depression, hypertension presenting with complaints of pain to left upper extremity, he tells me he feels like it is originating from his carpal tunnel, was seen by Orthopedics who tell him he will likely need surgery in the future due to severe carpal tunnel tried to get into Ortho where they told him he may be getting a cortisone shot however has not been able to get in, reporting severe pain worse with movement better at rest uses pains going up his arm and into his neck. Patient reports that pain starts that his finger tips and goes up his arm and into his neck, this has been ongoing and intermittent for weeks. Denies chest pain, shortness of breath, nausea, vomiting, headache, vision changes, dizziness, weakness. Physical exam significant with discomfort with range of motion of left wrist. 2+ radial pulses equal bilateral. No wrist drop. Positive Tinel sign. Neurological assessment intact. Cranial nerves 2-12 intact NIH stroke scale 0. Likely carpal tunnel versus cubital tunnel w ith radiation of pain. Unlikely dissection of carotid, stroke, posterior stroke, fracture, dislocation. No signs of threatened limb neurovascular compromise. No signs of venous or arterial occlusion. No signs of neuro deficits unlikely stroke or posterior stroke. Plan prednisone, tramadol. In Educated patient on diagnosis and treatment plan, answered all question, patient verbalizes understanding. At this time patient will be discharged home, advised to return with new or worsening symptoms. Educated on worrisome signs and symptoms and when to return. At this time I feel comfortable discharge home. A narcotic has been sent to your pharmacy please take this as prescribed. Do not take more than the prescribed dose. Narcotic medications can cause addiction. Please do not mix them with alcohol. Do not take them while driving or operating machinery. Do not take them with any other narcotics. Do not share them with friends or family. They can cause constipation. Take them only for severe pain. 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 Cognitive needs: No Hearing needs: No Vision needs: No Review of Systems Const Details: Constitutional : No Weight loss, No Fever, No Chills, No Fatigue, No Malaise ENT/Mouth : No sore throat, No Rhinorrhea Eyes: No Eye Pain, No Swelling, No Redness Cardiovascular : No Chest Pain, No SOB, No Dyspnea on Exertion, No Orthopnea, No Edema, No Palpitations Respiratory : No Cough, No Sputum, No Wheezing Gastrointestinal : No Nausea, No Vomiting, No Diarrhea, No Constipation, No abdominal Pain, No Hematochezia, No Melena Genitourinary : No Dysuria, No Urinary Frequency, No Hematuria, Musculoskeletal : + joint pain, No Myalgias, + Joint Swelling Skin : No Skin Lesions, No rash Neuro : No Weakness, No Numbness, No Dizziness, No Headache Psych : No Anxiety/Panic, No Depression All other systems reviewed and are negative All systems reviewed & are unremarkable except as noted in HPI and below Physical Exam Vital Signs: Last Vital Signs Pulse 63 05/16/23 12:51 BP 140/100 H 05/16/23 12:51 Pulse Ox 98 05/16/23 12:51 Oxygen Delivery Method Room Air 05/16/23 12:51 Vital signs stable pressure is high likely secondary to pain. No signs of hypertensive emergency or urgency Appearance: Alert.? Oriented X3.? No acute distress.? Head: Normocephalic, atraumatic, no step-offs or deformities Eyes: Pupils equal, round and reactive to light.? CVS: Normal heart rate and rhythm.? Pulses normal.? Respiratory: No respiratory distress.? Breath sounds normal.? Abdomen: Soft and nontender.? Skin: Skin warm and dry.? Normal skin color.? Normal skin turgor.? Extremities: No lower extremity edema.? No calf ttp. 5/5 strength to bilateral upper and lower extremities +discomfort with range of motion of left wrist. 2+ radial pulses equal bilateral. No wrist drop. Positive Tinel sign. Back: No midline tenderness, no C-spine tenderness, full range of motion, no CVA tenderness bilaterally Neuro: Oriented X 3.? No motor deficit.? No sensory deficit. CN 2-12 intact Assessment & Plan Assessment & Plan (1) Carpal tunnel syndrome of left wrist: Code(s): G56.02 - Carpal tunnel syndrome, left upper limb Plan Take your medications as prescribed. If you were prescribed antibiotics today, it is important that you take your medication to their entirety, do not skip any doses, do not finish them early. Follow-up with your primary care provider this week. Return to the emergency department with new or worsening symptoms. Such as fevers, chills, chest pain, shortness of breath, nausea, vomiting, dizziness, headache, vision changes, lethargy In case of emergency call 911 A narcotic has been sent to your pharmacy please take this as prescribed. Do not take more than the prescribed dose. Narcotic medications can cause addiction. Please do not mix them with alcohol. Do not take them while driving or operating machinery. Do not take them with any other narcotics. Do not share them with friends or family. They can cause constipation. Take them only for severe pain. Medications: New tramadol 50 mg PO BID 5 days PRN 10 tabs 0RF pain prednisone 20 mg PO DAILY 5 tabs 0RF 5 days Coding Level of Care Code Est Pt Level 3 (74342) Diagnoses Carpal tunnel syndrome of left wrist G56.02
[2023-05-16 12:51] VITALS: BP 140/100; PULSE 63; O2SAT 98
== END 2023-05-16 13:43 | disposition home or self-care (01) ==
PROVIDERS: PCP Nurse Practitioner Family; Visit Provider Physician Assistant
DX: G56.02 Carpal tunnel syndrome, left upper limb (principal)
CPT/HCPCS: 99213

== ENCOUNTER 2023-06-06 15:30 | Outpatient (AMB) | payer OTHER, SELFPAY ==
--- NOTE | 2023-06-06 15:37 | A.OFFVIS_ITS ---
Intake Vital Signs 06/06/23 15:41 Height 5 ft 10 in Weight 231 lb BMI 33.1 Handedness Right Intake Visit Reasons: O/V EMG review per Dr. Payan Intake Note: Hans is a 57 year old male who presents today for a EMG review for his left wrist and elbow. Patient reports his pain is worse on the lateral aspect of the elbow and also on the volar aspect of the wrist. 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 Cognitive needs: No Hearing needs: No Vision needs: No Physical Exam Vital Signs: BMI result Body Mass Index 33.1 Const General: cooperative, healthy appearing and no acute distress Orientation/consciousness: oriented to person and oriented to place HEENT Head: Yes normocephalic and Yes atraumatic Eyes EOM: EOMs intact bilaterally Resp Effort & Inspection: normal respiratory effort and able to speak in complete sentences Cardio Jugular venous distension: no JVD Skin General skin exam: turgor normal Rashes: no rashes Neuro General: oriented to person and oriented to place Extrem Other: Evaluation of Upper Extremity: Neuro: Median, ulnar, radial nerves motor and sensory intact except for some decreased subjective sensation in the median nerve distribution. He has got some weakness but present APB muscle belly firing. Good finger cross.. Vascular: Cap refill brisk. ROM: Can bring fingers closed to a fist and back out to extension. Can oppose thumb to fingertips Skin: No lacerations or abrasions. General: No eccymosis. No erythema or evidence of infection. He was most tender to palpation over the extensor origin just distal to the lateral epicondyle. He also had some tenderness extending proximal to the lateral epicondyle over the lateral aspect of the distal humerus in the soft tissues.. The patient reports that this also radiates up to his neck. He also had pain referred to the extensor origin with resisted extension of the left small and ring fingers. No pain with resisted extension of the index and middle fingers. EMG nerve conduction study IMPRESSION: 1. This is an abnormal study. 2. There is electrodiagnostic evidence for left moderate-severe median neuropathy at the wrist, consistent with Carpal Tunnel Syndrome.. 3. There is no electrodiagnostic evidence for ulnar neuropathy, brachial plexopathy, or cervical radiculopathy. Екатерина Castañeda MD, KATHARINE 05/05/2023 Please see her report for additional information as necessary. Radiographs: Three views of the left elbow from 04/19/2023 were reviewed by me today in clinic. They show no fractures or dislocations and no significant arthritic changes. Psych Appearance: grossly normal Affect: normal affect Attitude: cooperative Office Procedures Fracture Care Details: No fracture, injection Fracture Billing Code: Fracture Billing Code Assessment & Plan Assessment & Plan (1) Lateral epicondylitis: Code(s): M77.10 - Lateral epicondylitis, unspecified elbow (2) Carpal tunnel syndrome of left wrist: Code(s): G56.02 - Carpal tunnel syndrome, left upper limb Plan Assessment and plan: 1. Left carpal tunnel syndrome, moderately severe Decreased subjective sensation and some weakness in APB muscle belly firing I educated the patient about this condition We discussed operative and non operative treatment options and I am recommending surgery The risks and benefits of operative treatment were discussed with the patient and the patient wishes to proceed with surgery. These risks include, but are not limited to risk of damage to blood vessels, nerves, tendons, infection, recurrence, incomplete relief of preoperative symptoms, persistent pain, possible need for further surgery and the risks associated with regional blocks and anesthesia. The plan is to take the patient to the operating room sometime in the next few weeks for the following procedures: 1. Left carpal tunnel release under local 2. [ ] All of the preoperative paperwork including the consent was filled out today. All the patient's questions were answered. The patient understands that they will be contacted by our drying can worker soon to schedule this procedure It does not look like he has diabetes and he does not appear to be on blood thinners. 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 2. Left lateral epicondylitis 3. Some more generalized left elbow pain and also pain that extends proximal to the elbow and distal to the elbow but also radiates up to his neck. Radiographs of his left elbow were negative for fracture dislocation or significant arthritic changes. He reports these symptoms began about 6 years ago when he was pulling on something at work and something struck his left elbow I educated him about these conditions I talked about activity modification for the lateral epicondylitis. I discussed the risks and benefits of a steroid injection, including that is not likely to alleviate all of his symptoms but can be helpful. He wishes to proceed with the injection. Injection #1 : The risks and benefits of a steroid injection including but not limited to risk of damage to blood vessels, nerve, tendon, infection, skin bleaching, persistent or worsening pain, and failure to improve symptoms were discussed with the patient and they wish to proceed with the steroid injection. Once consent was obtained the skin over the extensor origin just distal to the lateral epicondyle of the left elbow was sterilely prepped. The area about the extensor origin was then injected with a combination of 1 mL of dexamethasone (4mg/ml) and 0.25 % plain Marcaine. The patient had good initial relief of his/her symptoms, and appears to have tolerated the procedure well and with no complications. Coding Level of Care Code New Pt Level 4 (13321) Diagnoses Lateral epicondylitis M77.10 Carpal tunnel syndrome of left wrist G56.02 CPT Codes Fracture Care - Fracture Billing Code: Fracture Billing Code ([id number])
[2023-06-06 15:41] VITALS: BMI 33.1
== END 2023-06-06 16:50 | disposition home or self-care (01) ==
PROVIDERS: PCP Nurse Practitioner Family; Visit Provider Orthopaedic Surgery
DX: M77.12 Lateral epicondylitis, left elbow (principal); G56.02 Carpal tunnel syndrome, left upper limb; G56.12 Other lesions of median nerve, left upper limb
CPT/HCPCS: 20550; 99204

== ENCOUNTER → 2023-06-06 15:30 | Outpatient (BNVA) | payer OTHER, SELFPAY | PROVIDERS: PCP Nurse Practitioner Family; Visit Provider Orthopaedic Surgery | DX: M77.10 Lateral epicondylitis, unspecified elbow (principal); G56.02 Carpal tunnel syndrome, left upper limb | CPT/HCPCS: J1100 ==

== ENCOUNTER 2023-06-12 13:30 | Outpatient (RCR) | payer OTHER, SELFPAY ==
--- NOTE | 2023-05-24 09:33 | MHC.OT.EP ---
[address] [phone] Occupational Therapy Plan of Care Patient Name: Hans Scruggs Date of Evaluation: 05/24/23 Diagnosis: Left Lateral epicondylitis Pain Location: left lateral elbow. achy, burning..throbbing Pain Score: 9 Pain Scale Used: Numeric (0 - 10) Aggravating Factors: Constant pain. Worsening with gripping , bending and straightening elbow Alleviating Factors: Taking Tamadol.. heat Assessment: Pt is a 57 yo male with worsening left elbow over the last several months with an old history of a left elbow injury . 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 Thank you once again for your referral.
--- NOTE | 2023-06-02 08:33 | MHC.OT.EP ---
[address] [phone] Occupational Therapy Plan of Care Patient Name: Hans Scruggs Date of Evaluation: 06/01/23 Diagnosis: Left Lateral epicondylitis Pain Location: left lateral elbow. achy, burning..throbbing Pain Score: 9 Pain Scale Used: Numeric (0 - 10) Aggravating Factors: Constant pain. Worsening with gripping , bending and straightening elbow Alleviating Factors: Taking Tamadol.. heat Assessment: Pt is a 57 yo male with worsening left elbow over the last several months with an old history of a left elbow injury . 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 Pt reports severe difficulty with daily activities due to left UE symptoms Pt to schedule with Dr Ramirez to address CTS He will benefit from OT for improving left elbow pain and UE function Frequency and Duration: The patient will be seen 2 x wk x 5 wks Short Term Goals: Indep with self massage and ther ex for left elbow pain Demo awareness of elbow protection techniques Demo elbow ext to neutral Demo elbow flex to 130 deg Tolerate Carrillo stretch Aerographer Goals: Indep in self management of left lateral epicondilitis Pain free left elbow AROM WNL for ability to wash his face Report increased ease with daily activities with modifications as needed Quick DASH score to < 30 pts Treatment Plan: Therapeutic Exercise Therapeutic Activity Home Exercise Program Splinting Patient Education ADL Training Ultrasound Iontophoresis MHP Soft Tissue Mobilization Kinesiotaping Electronically Signed By: Emily Chu OT CHT CLT Please Sign and return to therapist. Thank you once again for your referral.
--- NOTE | 2023-07-12 10:15 | MHC.OT.DC ---
[address] [phone] F: [phone] Occupational Therapy Discharge Note Patient Name: Hans Scruggs Provider: Winter Bear Diagnosis: Left Lateral epicondylitis Date of Surgery: Date of Evaluation: 05/24/23 Date of Discharge: 07/12/23 Treatments to Date: 6 Cancellations to Date: No Shows to Date: Discharge Status: Patient Elected to Stop Discharge Summary: Pt seen by Dr Ramirez , 05/28/23 , left elbow was injected and discussed scheduling for CTR. OT appt 06/12 pt reported and increase in elbow pain over the week end. Pain 8/10, Elbow ROM 5/120. Electronically Signed By: Emily Chu OT CHT CLT Reviewed/agree with student documentation: Therapist: Please Sign and return to therapist, thank you for your referral.
== END 2023-07-12 10:16 | disposition home or self-care (01) ==
LOC: HO.OT 13:30
PROVIDERS: PCP Nurse Practitioner Family; Visit Provider Nurse Practitioner Family
DX: M25.552 Pain in left hip (principal); M77.10 Lateral epicondylitis, unspecified elbow
CPT/HCPCS: 97033; 97110; 97140; 97166

== ENCOUNTER 2023-07-28 11:25 | Outpatient (AMB) | payer OTHER, SELFPAY ==
[2023-07-28 11:32] VITALS: BP 168/98; PULSE 71; O2SAT 98; BMI 33.6
--- NOTE | 2023-07-28 11:32 | A.OFFPC_ITS ---
Vital Signs 07/28/23 11:32 Height 5 ft 10 in Weight 234 lb BMI 33.6 BP 168/98 H Blood Pressure Location Lt brachial Position Sitting Pulse 71 Pulse Source Pulse Oximeter Pulse Oximetry (%) 98 Oxygen Delivery Method Room Air Intake Visit Reasons: HTN, borderline hyperlipidemia, asthma Postpartum Nurse: Not Required per policy Accompanied by: Self / Same As Patient Allergies No Known Allergies Allergy (Verified 07/28/23 11:32) Tobacco use date assessed: 04/11/23 Dental Screening Dental Screen Date: 07/28/23 Did you have a dental visit in the last 12 months?: Yes Did you have a dental problem in the last 6 months where you did not have access to dental care?: No Was dental information given to patient?: Patient has dentist HPI HPI Comments History of Present Illness Details 57-year-old male new patient presents to [facility] for follow up visit.Past medical history significant for asthma and hypertension. Review of the notes patient was seen in the walk-in clinic for left arm pain, EMG and nerve conduction test completed showed left carpal tunnel syndrome. Patient was referred to the orthopedic hand specialist was recommended patient undergo left wrist carpal tunnel surgery. Patient reports has upcoming appointment scheduled in August for this. Patient requesting a new prescription for ongoing left elbow pain which patient has completed occupational therapy in the past and states received injection in left elbow which only relieved his pain x2 days. Will trying new hematoma 500 mg b.i.d.. Fasting blood work ordered Patient reports difficulty losing weight elevated BMI 33.6, patient requesting will supplement injections for weight loss. Ozempic ordered patient will initiate on this medication 0.25 mg weekly x4 weeks pending insurance approval. 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 1. Little interest or pleasure in doing things: not at all 2. Feeling down, depressed, or hopeless: several days 3. Trouble falling or staying asleep, or sleeping too much: several days 4. Feeling tired or having little energy: not at all 5. Poor appetite or overeating: not at all 6. Feeling bad about yourself - or that you are a failure or have let yourself or your family down: not at all 7. Trouble concentrating on things, such as reading the newspaper or watching television: not at all 8. Moving or speaking so slowly that other people could have noticed. Or the opposite - being so fidgety or restless that you have been moving around a lot more than usual: not at all 9. Thoughts that you would be better off or of hurting yourself in some way: not at all Total score: 2 Depression Screening Interpretation: Positive Depression Screening Done: Yes 33352 - PHQ-9 Billing: Yes Source: Developed by Drs. Olaf Thayer, Truman Reyes and colleagues, with an educational marianna from [employer]. Thrive Questionnaire Date Thrive assessed: 12/09/22 AUDIT C Alcohol Use Questionnaire (AUDIT-C) 1. How often do you have a drink containing alcohol?: Monthly or less 2. How many drinks containing alcohol do you have on a typical day when you are drinking?: 1 or 2 3. How often do you have six or more drinks on one occasion?: Never Total Score: 1 HORTENCIA-7 AMB Questionnaire HORTENCIA-7 Date HORTENCIA - 7 assessed: 12/09/22 Source: Developed by Drs. Olaf Thayer, Truman Reyes and colleagues, with an educational marianna from [employer]. Review of Systems Const Denies chills, Denies fatigue, Denies fever(s) and Denies poor appetite Eyes Denies no additional complaints ENT Reports Normal hearing present Card Denies chest pain, Denies syncope, Denies rapid heart rate and Denies dyspnea Resp Denies cough and Denies dyspnea GI Denies change in stool character, Denies constipation, Denies diarrhea, Denies nausea and Denies vomiting Denies dysuria, Denies urinary frequency and Denies urinary urgency Neuro Reports Normal hearing present, Denies confusion and Denies syncope Psych Denies confusion Endo Denies fatigue Physical exam (Primary Care) Vital Signs: Last Vital Signs Pulse 71 07/28/23 11:32 BP 168/98 H 07/28/23 11:32 Pulse Ox 98 07/28/23 11:32 Oxygen Delivery Method Room Air 07/28/23 11:32 BMI result Body Mass Index 33.6 Tobacco/Smoking Status: Tobacco use Status Tobacco use date assessed 04/11/23 07/28/23 11:33 Patient Tobacco Use Status Former Tobacco user 07/28/23 11:33 e-Cigarette/Vaping Use Never Used 07/28/23 11:33 PHQ-9: PHQ-9 Score PHQ-9: Total score 2 07/28/23 11:49 Depression Screening Interpretation: Positive Thrive Assessment: Date of Thrive Assessment Date Thrive assessed 12/09/22 07/28/23 11:33 Const General: No confusion Orientation/consciousness: No confusion HENMT Head: Yes normocephalic and Yes atraumatic Eyes Conjunctivae: conjunctivae normal Chest Chest palpation & inspection: normal inspection of the chest Resp Effort & Inspection: normal respiratory effort Auscultation: clear to auscultation bilaterally, no crackles, no rhonchi and no wheezes Cardio Rate: regular rate Rhythm: regular rhythm Heart sounds: S1 normal heart sound present and S2 normal heart sound present GI Inspection: Yes normal to inspection Neuro General: No confusion Cranial nerves: Yes Normal hearing present Extrem General: No edema Assessment and Plan Assessment & Plan (1) Obesity (BMI 30-39.9): Code(s): E66.9 - Obesity, unspecified Plan: Ozempic ordered Patient encouraged diet and exercise to decrease BMI. (2) Left elbow pain: Code(s): M25.522 - Pain in left elbow Plan: Will trial nabumetone 500 mg b.i.d. as needed for pain. Please take medication with food to prevent GI upset. (3) Essential hypertension: Code(s): I10 - Essential (primary) hypertension Plan: Continue on metoprolol 100 mg daily Patient's blood pressure continues to be elevated office 168/98, patient states his blood pressure is always elevate will add hydrochlorothiazide 12.5 mg daily. Patient advised to check his blood pressure periodically at home after sitting down for 3-5 minutes and keep a log, patient advised to notify PCP with elevated blood pressures. Follow low-salt diet and exercise. (4) Borderline hyperlipidemia: Code(s): E78.5 - Hyperlipidemia, unspecified Plan: Fasting lipid panel ordered. Continue to follow low-cholesterol diet. Plan Follow-up in 3 months Orders: Orders Comprehensive [place]. Panel Fast Today E78.5 - Hyperlipidemia, unspecified, I10 - Essential (primary) hypertension Lipid Panel Today E78.5 - Hyperlipidemia, unspecified TSH reflex Free T4 Today Z13.29 - Encounter for screening for other suspected endocrine disorder Complete Blood Count Auto Diff Today Z13.0 - Encounter for screening for diseases of the blood and blood-forming organs and certain disorders involving the immune mechanism Medications: New semaglutide (Ozempic) for 4 weeks 0.25 mg (0.368 mL) subcut QWEEK 3 mL 0RF E66.9 - Obesity, unspecified, E78.5 - Hyperlipidemia, unspecified nabumetone 500 mg PO BID 20 tabs 0RF hydrochlorothiazide 12.5 mg PO DAILY 30 caps 3RF I10 - Essential (primary) hypertension Discontinued naproxen Discontinued Reason: None 500 mg PO BID PRN 20 tabs 0RF pain M25.561 - Pain in right knee Coding Level of Care Code Est Pt Level 4 (10087) Diagnoses Obesity (BMI 30-39.9) E66.9 Left elbow pain M25.522 Essential hypertension I10 Borderline hyperlipidemia E78.5
== END 2023-07-28 12:05 | disposition home or self-care (01) ==
PROVIDERS: PCP Nurse Practitioner Family; Visit Provider Nurse Practitioner Family
DX: I10 Essential (primary) hypertension (principal); E66.9 Obesity, unspecified; M25.522 Pain in left elbow; Z68.33 Body mass index [BMI] 33.0-33.9, adult; E78.5 Hyperlipidemia, unspecified
CPT/HCPCS: 99214

== ENCOUNTER 2023-08-08 12:10 | Outpatient (AMB) | payer OTHER, SELFPAY ==
[2023-08-08 13:05] VITALS: BP 142/80; PULSE 75; TEMP 36.6; O2SAT 97; BMI 33.6
--- NOTE | 2023-08-08 13:05 | AM.OFFWIN_ITS ---
Intake Vital Signs 08/08/23 13:05 Height 5 ft 10 in Weight 234 lb BMI 33.6 BP 142/80 H Blood Pressure Location Rt brachial Position Sitting Pulse 75 Pulse Source Pulse Oximeter Temp 97.8 F Temp Source Temporal Artery Scan Pulse Oximetry (%) 97 Oxygen Delivery Method Room Air Intake Visit Reasons: EP RT knee pain swollen Intake Note: pt is here for c/o rt knee pain, swollen Patient Tobacco Use Status: Former Tobacco user Allergies No Known Allergies Allergy (Verified 08/13/23 12:44) Medication List - Last Reconciled 08/13/23 by Sunny Sierra MD albuterol sulfate 90 mcg/actuation 2 puffs inhalation Q6H PRN bisacodyl (Dulcolax (bisacodyl)) 20 mg (4 x 5 mg) PO ONCE 1 day hydrochlorothiazide 12.5 mg PO DAILY metoprolol succinate ER 100 mg PO DAILY nabumetone 500 mg PO BID polyethylene glycol 3350 (Miralax) 238 grams PO ONCE prednisone 60 mg (3 x 20 mg) PO DAILY Do you need a note to return to daycare/school/sports/work: Yes HPI EP RT knee pain swollen HPI Details 57-year-old male presents to the office for a sick visit. Reporting pain and swelling in his right knee. Does not recall any fall or injury prior to the onset of symptoms. 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 Walking with a limp. 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 Cognitive needs: No Hearing needs: No Vision needs: No Physical Exam Vital Signs: Last Vital Signs Temp 97.8 F 08/08/23 13:05 Pulse 75 08/08/23 13:05 BP 142/80 H 08/08/23 13:05 Pulse Ox 97 08/08/23 13:05 Oxygen Delivery Method Room Air 08/08/23 13:05 BMI result Body Mass Index 33.6 Const General: cooperative and healthy appearing Nutritional Appearance: well nourished Orientation/consciousness: patient oriented x3 Limitations: no limitations HEENT Head: Yes normal to inspection Eyes General: appearance normal, both eyes and all related structures Neck Neck: Yes normal visual inspection Chest Chest palpation & inspection: normal palpation of entire chest wall Resp Effort & Inspection: normal respiratory effort Neuro General: patient oriented x3 Extrem Other: Right knee: Suprapatellar effusion. Joint line tenderness. Unable to flex the joint completely due to effusion. Assessment & Plan Assessment & Plan (1) Effusion, right knee: Code(s): M25.461 - Effusion, right knee Plan: Reactive inflammation. Prednisone called in followed by NSAIDS. Knee brace provided. If sx not better to follow up here. Medications: New prednisone 60 mg (3 x 20 mg) PO DAILY 9 tabs 0RF Refilled nabumetone 500 mg PO BID 20 tabs 0RF Discontinued tramadol Discontinued Reason: Doctor's Order 50 mg PO BID 5 days PRN 10 tabs 0RF pain semaglutide (Ozempic) for 4 weeks Discontinued Reason: Insurance Denied 0.25 mg (0.368 mL) subcut QWEEK 3 mL 0RF E66.9 - Obesity, unspecified, E78.5 - Hyperlipidemia, unspecified Coding Level of Care Code Est Pt Level 4 (61569) Diagnoses Effusion, right knee M25.461
== END 2023-08-08 14:54 | disposition home or self-care (01) ==
PROVIDERS: PCP Nurse Practitioner Family; Visit Provider Internal Medicine
DX: M25.461 Effusion, right knee (principal)
CPT/HCPCS: 99214

== ENCOUNTER 2023-09-04 09:30 | Outpatient (AMB) | payer OTHER, SELFPAY ==
--- NOTE | 2023-09-04 10:49 | AM.OFFWIN_ITS ---
Intake Vital Signs 09/04/23 10:53 Weight 102.965 kg BP 150/86 H Blood Pressure Location Lt brachial Position Sitting Pulse 92 Pulse Source Pulse Oximeter Temp 97.4 F Pulse Oximetry (%) 98 Oxygen Delivery Method Room Air Intake Visit Reasons: EP, right foot pain/swelling Intake Note: pt is here today for rt foot pain,swelling started monday Patient Tobacco Use Status: Former Tobacco user Allergies No Known Allergies Allergy (Verified 09/04/23 10:50) Do you need a note to return to daycare/school/sports/work: No HPI HPI Comments History of Present Illness Details 1109 57-year-old male history of gout, hypert ension, anxiety, hypertension presenting to the clinic for evaluation of left foot, ankle and toe pain, patient reports this is his typical presentation of gout. Painful, started suddenly, warm. Denies fevers, chills, chest pain, shortness of breath, nausea, vomiting, abdominal pain Physical exam negative Carissa bilaterally. There is swelling noted particularly to the great toe of left foot with overlying erythema, no warmth, full range of motion to all toes and ankles, painless bilaterally. 2+ radial pulses equal bilateral. No swelling to calf bilaterally normal sensation distally. Normal capillary refill to bilateral lower extremities History and physical exam concerning for gout versus pseudogout. Unlikely neurovascular compromise acute threat to [place], arterial occlusion, DVT. Plan at this time will discharge with prednisone and give Toradol for pain control as patient is reporting pain Educated patient on diagnosis and treatment plan, answered all question, patient verbalizes understanding. At this time patient will be discharged home, advised to return with new or worsening symptoms. Educated on worrisome signs and symptoms and when to return. At this time I feel comfortable discharge home. 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 Cognitive needs: No Hearing needs: No Vision needs: No Review of Systems Const Details: Constitutional : No Weight loss, No Fever, No Chills, No Fatigue, No Malaise ENT/Mouth : No sore throat, No Rhinorrhea Eyes: No Eye Pain, No Swelling, No Redness Cardiovascular : No Chest Pain, No SOB, No Dyspnea on Exertion, No Orthopnea, No Edema, No Palpitations Respiratory : No Cough, No Sputum, No Wheezing Gastrointestinal : No Nausea, No Vomiting, No Diarrhea, No Constipation, No abdominal Pain, No Hematochezia, No Melena Genitourinary : No Dysuria, No Urinary Frequency, No Hematuria, Musculoskeletal : + joint pain, No Myalgias, + Joint Swelling Skin : No Skin Lesions, No rash Neuro : No Weakness, No Numbness, No Dizziness, No Headache Psych : No Anxiety/Panic, No Depression All other systems reviewed and are negative All systems reviewed & are unremarkable except as noted in HPI and below Physical Exam Vital Signs: Last Vital Signs Temp 97.4 F 09/04/23 10:53 Pulse 92 09/04/23 10:53 BP 150/86 H 09/04/23 10:53 Pulse Ox 98 09/04/23 10:53 Oxygen Delivery Method Room Air 09/04/23 10:53 vss Appearance: Alert.? Oriented X3.? No acute distress.? Head: Normocephalic, atraumatic, no step-offs or deformities Eyes: Pupils equal, round and reactive to light.? CVS: Normal heart rate and rhythm.? Pulses normal.? Respiratory: No respiratory distress.? Breath sounds normal.? Abdomen: Soft and nontender.? Skin: Skin warm and dry.? Normal skin color.? Normal skin turgor.? Extremities: No lower extremity edema.? No calf ttp. 5/5 strength to bilateral upper and lower extremities Neuro: Oriented X 3.? No motor deficit.? No sensory deficit. CN 2-12 intact Assessment & Plan Assessment & Plan (1) Gout of foot: Code(s): M10.9 - Gout, unspecified Plan Take your medications as prescribed. If you were prescribed antibiotics today, it is important that you take your medication to their entirety, do not skip any doses, do not finish them early. Follow-up with your primary care provider this week. Return to the emergency department with new or worsening symptoms. Such as fevers, chills, chest pain, shortness of breath, nausea, vomiting, dizziness, headache, vision changes, lethargy In case of emergency call 911 Orders: Orders AMB Ketorolac Injection Today M10.9 - Gout, unspecified Medications: New ketorolac 10 mg PO Q8H PRN 15 tabs 0RF pain ketorolac 30 mg IM ONCE 1 mL 0RF M10.9 - Gout, unspecified prednisone 60 mg (3 x 20 mg) PO DAILY 15 tabs 0RF 5 days Coding Level of Care Code Est Pt Level 3 (93292) Diagnoses Gout of foot M10.9
[2023-09-04 10:53] VITALS: BP 150/86; PULSE 92; TEMP 36.3; O2SAT 98
== END 2023-09-04 12:04 | disposition home or self-care (01) ==
PROVIDERS: PCP Nurse Practitioner Family; Visit Provider Physician Assistant
DX: M10.9 Gout, unspecified (principal)
CPT/HCPCS: 96372; 99213; J1885

== ENCOUNTER 2023-10-19 11:16 | Day surgery (SDC) | payer OTHER, SELFPAY ==
[2023-10-19 11:32] VITALS: BP 113/83; PULSE 71; RESP 16; TEMP 36.6; O2SAT 96; BMI 33.9
--- NOTE | 2023-10-19 12:05 | MHC.SHP ---
Pre-Procedural Eval Section A - 24 Hr Update-Section A only Date of Service: 10/19/23 The patient is an INPATIENT: No Changes since office visit: No Cold of Flu in the past 2 weeks, No New Medical Problems, No Changes in Medication and No Patient answered all questions The patient has been examined within 24 hours of the surgical procedure. The History & Physical has been completed within 30 days and I have reviewed it.: Yes Section B - Complete if H&P > 30 days Chief Complaint: Carpal tunnel syndrome, left upper limb Allergies: Allergies Allergy/AdvReac Type Severity Reaction Status Date / Time No Known Allergies Allergy Verified 09/04/23 10:50 Plan I have reviewed the history and physical and performed a pertinent physical examination on my patient. No changes have occurred unless specified. Time Spent With Patient Time: Total time managing care of this patient today ____ minutes.
--- NOTE | 2023-10-19 12:06 | W.PM.OPN ---
Operative Note Operative Note Date of Service: 10/19/23 Narrative: Preop diagnosis: 1. Left Carpal tunnel syndrome Postop diagnosis: same Procedure: 1. Left Carpal tunnel release Surgeon: Lily Ramirez MD Anesthesia: local block using 1% lidocaine with epinephrine Findings: Thickened transverse carpal ligament. EBL: Less than 5 mL Specimens: None Complications: None Disposition: Brought to recovery room in stable condition Plan: Follow-up for 10-14 days for wound check and suture removal Indications: The patient is 57 years old, with left carpal tunnel syndrome that has been unresponsive to nonoperative management. The risks and benefits of operative treatment including but not limited to risk of damage to blood vessels, nerves, tendons, infection, persistent pain, persistent symptoms, or possible need for additional surgery were discussed with the patient and the patient wishes to proceed with surgery. Procedure: Once consent was obtained a local block was performed using a combination of 1% lidocaine with epinephrine. The patient was then brought back to the operating suite and placed on the operative table in supine position. The left upper extremity was prepped and draped in a standard surgical fashion. Once assured that we had a good block, a 2.0 cm longitudinal incision was made centered over the carpal tunnel. The incision was made through the skin to the subcutaneous tissues using a #15 blade. Dissection was made down to the level of the transverse carpal ligament with care being taken to protect the palmar cutaneous nerve. Once the transverse carpal ligament was clearly visualized, a longitudinal incision was made in the transverse carpal ligament 1st using a #15 blade, then using tenotomy scissors under direct visualization. Care was taken to look for and protect the motor branch of the median nerve when seen in this area. Once satisfied with our carpal tunnel release the wound was copiously irrigated with normal saline and hemostasis was obtained with a brief period of local pressure. The skin edges were reapproximated with some 5.0 nylon suture material and a sterile dressing was applied. The patient appears to have tolerated the procedure well and with no complications. All digits were well vascularized at the conclusion of the case.
[2023-10-19 13:28] VITALS: BP 154/87; PULSE 60; RESP 16; O2SAT 97
== END 2023-10-19 13:46 | disposition home or self-care (01) ==
PROVIDERS: PCP Internal Medicine; Visit Provider Orthopaedic Surgery
PROC: (CPT 64721; principal; 2023-10-19 11:40)
DX: G56.02 Carpal tunnel syndrome, left upper limb (principal); M77.12 Lateral epicondylitis, left elbow; J45.909 Unspecified asthma, uncomplicated; M10.9 Gout, unspecified; F41.8 Other specified anxiety disorders; Z98.890 Other specified postprocedural states; Z87.891 Personal history of nicotine dependence
CPT/HCPCS: 64721; J0171

== ENCOUNTER → 2023-10-19 11:16 | Outpatient (BNV) | payer OTHER, SELFPAY | PROVIDERS: PCP Internal Medicine; Visit Provider Orthopaedic Surgery | DX: G56.02 Carpal tunnel syndrome, left upper limb (principal) | CPT/HCPCS: 64721 ==

== ENCOUNTER 2023-11-01 14:22 | Outpatient (AMB) | payer OTHER, SELFPAY ==
--- NOTE | 2023-11-01 14:23 | MHC.OFFVIS ---
Intake Intake Visit Reasons: PO-Lt CTR 09/14/23/ Confirmed Intake Note: Hans is a 58 year old right hand dominant male who presents today for a post op appointment s/p left carpal tunnel release 10/19/2023 [place]. Patient reports his symptoms has improved after the surgery. Allergies No Known Allergies Allergy (Verified 11/01/23 14:24) HPI PO-Lt CTR 09/14/23/ Confirmed HPI Details 58-year-old right hand dominant male, who is Beninese speaking, presents in the office today 13 days status post left carpal tunnel release, which was performed on 10/19/[address] Ramirez. The patient reports his symptoms have resolved. 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 Sutures intact. No surrounding erythema or drainage. No signs of infection. Patient reports complete resolution of symptoms. Denies numbness, tingling, or pain. Full ROM of the hand and wrist. Assessment & Plan Assessment & Plan (1) S/P carpal tunnel release: Onset Date: ~10/19/23 Comment: Dr. Lily Ramirez Code(s): Z98.890 - Other specified postprocedural states Plan Mr. Matthew Scrugsg is a 58-year-old right hand dominant male, who is Beninese speaking, presents in the office today 13 days status post left carpal tunnel release, which was performed on 10/19/[address] Ramirez. The patient reports his symptoms have resolved. Sutures were removed and steri-stripes were applied. He reports full symptom resolution. Follow up for this will be PRN, or sooner if needed. Of note: The patient would like to proceed with investigation of right carpal tunnel syndrome as he is having identical symptoms on the opposite side. An EMG study has been ordered at today?s encounter. Follow up will be after the EMG is obtained, or sooner if needed. Orders: Orders NE electromyogram (EMG) Today G56.01 - Carpal tunnel syndrome, right upper limb Patient Instructions: Scribed by Winter Najera medical psychotherapist, for Becca Rodriguez PA-C on 11/01/2023 at 2:25 pm, EST. Coding Level of Care Code Global (94583) Diagnoses S/P carpal tunnel release Z98.890
== END 2023-11-01 14:33 | disposition home or self-care (01) ==
PROVIDERS: PCP Nurse Practitioner Family; Visit Provider Physician Assistant
DX: G56.02 Carpal tunnel syndrome, left upper limb (principal)
CPT/HCPCS: 99024

== ENCOUNTER → 2023-11-01 14:22 | Outpatient (BNVA) | payer OTHER, SELFPAY | PROVIDERS: PCP Nurse Practitioner Family; Visit Provider Physician Assistant | DX: Z48.811 Encounter for surgical aftercare following surgery on the nervous system (principal); Z98.890 Other specified postprocedural states | CPT/HCPCS: 99212 ==

== ENCOUNTER 2024-12-02 15:59 | Outpatient (REF) | payer SELFPAY ==
[2024-12-02 17:29] LABS: MANUAL DIFF FLAG NO
[2024-12-02 17:36] LABS: Basophils Absolute Auto 0.1 X10*3/uL (0.0-0.2); Basophils Percent Auto 0.5 % (0-2); Eosinophils Percent Auto 0.1 % (0-4); Hematocrit 46.4 % (42.0-52.0); Hemoglobin 15.2 g/dl (14.0-18.0); Imm Gran Abs Auto 0.11 X10*3/uL (0.00-0.03); Imm Gran Pct Auto 0.8 % (0.0-0.4); Lymphocytes Absolute Auto 2.5 X10*3/uL (1.2-4.9); Mean Corpuscular HGB Conc 32.8 g/dl (31.0-36.0); Mean Corpuscular Hemoglobin 27.7 pg (27.0-33.0); Mean Corpuscular Volume 84.5 fL (80.0-98.0); Mean Platelet Volume 9.1 fL (9.4-12.4); Monocytes Absolute Auto 0.5 X10*3/uL (0.1-1.2); Monocytes Percent Auto 3.3 % (2-11); Neutrophils Absolute Auto 10.7 x10*3/uL (2.0-8.3); Neutrophils Percent Auto 77.3 % (45-73); Platelet Count 277 X10*3/uL (160-400); Red Blood Count 5.49 X10*6/uL (4.60-5.80); Red Cell Distribution Width 15.4 % (11.0-16.0); White Blood Count 13.9 X10*3/uL (4.8-10.8)
[2024-12-02 18:06] LABS: Alanine Aminotransferase 29 U/L (0-40); Albumin Level 4.6 g/dL (3.5-5.0); Alkaline Phosphatase 94 U/L (39-117); Anion Gap 12 (12-20); Aspartate Amino Transferase 20 U/L (5-37); Bilirubin Total 0.5 mg/dL (0.0-1.0); Blood Urea Nitrogen 9 mg/dL (9-16); Calcium 9.6 mg/dL (8.4-10.2); Carbon Dioxide 26 mmol/L (22-29); Chloride 106 mmol/L (96-108); Estimated Glomerular Filt Rate > 60; Glucose Random 98 mg/dL (60-115); Sodium 140 mmol/L (135-145); Total Protein 8.1 g/dL (6.5-8.0); Uric Acid 10.2 mg/dL (3.4-7.0)
--- OUTSIDE RECORDS SUMMARY | 2024-12-02 18:20 | XMS_ITS | Encounter Summary ---
Author Organization [employer] Address [address] [facility] [address] [address] Care Team Providers Care Historic Preservationist Name Role Phone Eli Dietz NP Primary Care Provider [phone] Reason for Visit * Reason Comments Hand Pain Encounter Details Date Type Department Care Team (Late st Contact Info) Description 12/02/2024 3:20 PM EDT Office Visit [facility] [address] [place] [address] [phone] Left hand pain (Primary Dx); Hypertension, unspecified type; Swelling Social History Tobacco Use Types Packs/Day Years Used Date Smoking Tobacco: Never Assessed Sex and Gender Information Value Date Recorded Sex Assigned at Male 08/27/2024 11:47 AM EST Legal Sex Male 9:14 AM EST Gender Identity Male 08/27/2024 11:47 AM EST Sexual Orientation Choose not to disclose 2023 11:47 AM EST documented as of this encounter Last Filed Vital Signs Vital Sign Reading Time Taken Comments Blood Pressure 151/106 12/02/2024 3:30 PM EDT Pulse 84 12/02/2024 3:30 PM EDT Temperature 36.9 ??C (98.4 ??F) 12/02/2024 3:30 PM ED T Respiratory Rate 18 12/02/2024 3:30 PM EDT Oxygen Saturation 97% 12/02/2024 3:30 PM EDT Inhaled Oxygen Concentration - - Weight 105 kg (230 lb 12.8 oz) 12/02/2024 3:30 P M EDT Height - - Body Mass Index - - documented in this encounter Plan of Treatment Upcoming Encounters Date Type Department Care Team (Late st Contact Info) Description 12/31/2024 2:00 PM EDT Office Visit [facility] [address] [place] [address] [phone] Eli Dietz NP [address] [place] [address] Scheduled Orders Name Type Priority Associated Diagnoses Orde r Schedule Basic Metabolic Panel Lab Routine Hypertension, unspecified type Expected: 01/02/2025 (Approximate), Expires: 12/02/2025 documented as of this encounter Procedures Procedure Name Priority Date/Time Associated Diagnosis Comments CBC WITH AUTO DIFFERENTIAL Routine 12/02/2024 4:02 PM EDT Left hand pain URIC ACID Routine 12/02/2024 4:02 PM EDT Left hand pain COMPREHENSIVE METABOLIC PANEL Routine 12/02/2024 4:02 PM EDT Left hand pain documented in this encounter Results * (ABNORMAL) Uric acid (12/02/2024 4:02 PM EDT) Uric Acid 10.2(H) 3.4 - 7.0 mg/dL [facility] Blood Venous blood specimen / Unknown 12/02/2024 4:02 PM EDT 12/02/2024 5:25 PM EDT us Eli Dietz NP LAB BLOOD ORDERABLES Final Resul t [facility] [address] [place] [address] [phone] * (ABNORMAL) CBC auto differential (12/02/2024 4:02 PM EDT) White Blood Count 13.9(H) 4.8 - 10.8 X10*3/uL [facility] Red Blood Count 5.49 4.60 - 5.80 X10*6/uL [facility] Hemoglobin 15.2 14.0 - 18.0 g/dl [facility] Hematocrit 46.4 42.0 - 52.0 % [facility] Mean Corpuscular Volume 84.5 80.0 - 98.0 fL [facility] Mean Corpuscular Hemoglobin 27.7 27.0 - 33.0 pg [facility] Mean Corpuscular HGB Conc 32.8 31.0 - 36.0 g/dl [facility] Red Cell Distribution Width 15.4 11.0 - 16.0 % [facility] Platelet Count 277 160 - 400 X10*3/uL [facility] Mean Platelet Volume 9.1(L) 9.4 - 12.4 fL [facility] Neutrophils Percent Auto 77.3(H) 45 - 73 % [facility] Imm Gran Pct Auto 0.8(H) 0.0 - 0.4 % [facility] Lymphocytes Percent Auto 18.0(L) 20 - 40 % [facility] Monocytes Percent Auto 3.3 2 - 11 % [facility] Eosinophils Percent Auto 0.1 0 - 4 % [facility] Basophils Percent Auto 0.5 0 - 2 % [facility] NRBC Pct Auto 0.0 0.0 - 0.2 /100WBC [facility] Neutrophils Absolute Auto 10.7(H) 2.0 - 8.3 x10*3/uL [facility] Imm Gran Abs Auto 0.11(H) 0.00 - 0.03 X10*3/uL [facility] Lymphocytes Absolute Auto 2.5 1.2 - 4.9 X10*3/uL [facility] Monocytes Absolute Auto 0.5 0.1 - 1.2 X10*3/uL [facility] Eosinophils Absolute Auto 0.0 0.0 - 0.4 X10*3/uL [facility] Basophils Absolute Auto 0.1 0.0 - 0.2 X10*3/uL [facility] NRBC Abs Auto 0.000 0.0 - 0.012 X10*3/uL [facility] Blood Venous blood specimen / Unknown 12/02/2024 4:02 PM EDT 12/02/2024 5:25 PM EDT us Eli Dietz POLITICAL SCIENTIST LAB BLOOD ORDERABLES Final Resul t [facility] [address] [place] [address] [phone] * (ABNORMAL) Comprehensive Metabolic Panel (12/02/2024 4:02 PM EDT) Sodium 140 135 - 145 mmol/L [facility] Potassium 4.0 3.3 - 5.1 mmol/L [facility] Chloride 106 96 - 108 mmol/L [facility] Carbon Dioxide 26 22 - 29 mmol/L [facility] Anion Gap 12 12 - 20 [facility] Urea Nitrogen (BUN) 9 9 - 16 mg/dL [facility] Creatinine, Serum 0.76 0.5 - 1.4 mg/dL [facility] Estimated Glomerular Filt Rate >60 [facility] Comment:Chronic Kidney Disea se: Estimated GFR < 60 mL/min/[id number] Kidney Disease: Estimated GFR < 15 mL/min/1.73m2 Glucose 98 60 - 115 mg/dL [facility] Calcium 9.6 8.4 - 10.2 mg/dL [facility] Bilirubin, Total 0.5 0.0 - 1.0 mg/dL [facility] Aspartate Amino Transferase 20 5 - 37 U/L [facility] Alanine Aminotransferase 29 0 - 40 U/L [facility] Total Protein 8.1(H) 6.5 - 8.0 g/dL [facility] Albumin Level 4.6 3.5 - 5.0 g/dL [facility] Alkaline Phosphatase 94 39 - 117 U/L [facility] Blood Venous blood specimen / Unknown 12/02/2024 4:02 PM EDT 12/02/2024 5:25 PM EDT Eli Dietz NP LAB BLOOD ORDERABLES Final Resul t Performing Organization Address [facility]/ZIP Co de Phone Number [facility] [address] [place] [address] [phone] documented in this encounter Visit Diagnoses Diagnosis Left hand pain- Primary Pain in soft tissues of limb Hypertension, unspecified type Swelling Localized superficial swelling, mass, or lump documented in this encounter Care Teams Historic Preservationist Relationship Specialty Start Date End Date Eli Dietz NP [address] [place] [phone] PCP - General Family Medicine 12/02/24 documented as of this encounter
--- OUTSIDE RECORDS SUMMARY | 2024-12-02 18:20 | XMS_ITS | Encounter Summary ---
Author Organization [employer] Address [address] [facility] [address] [place] [address] Care Team Providers Care Child Support Agent Name Role Phone Eli Dietz [employer] Primary Care Provider [phone] Reason for Visit * Reason Comments Med Refill Encounter Details Date Type Department Care Team (Late st Contact Info) Description 10/19/2024 Refill [facility] [address] [place] [address] Name, MD Ramo [address] [place] [address] Social History Tobacco Use Types Packs/Day Years Used Date Smoking Tobacco: Never Assessed Sex and Gender Information Value Date Recorded Sex Assigned at Male 08/27/2024 11:47 AM EST Legal Sex Male 9:14 AM EST Gender Identity Male 08/27/2024 11:47 AM EST Sexual Orientation Choose not to disclose 2023 11:47 AM EST documented as of this encounter Plan of Treatment Upcoming Encounters Date Type Department Care Team (Late st Contact Info) Description 12/31/2024 2:00 PM EDT Office Visit [facility] [address] [place] [address] Eli Dietz NP [address] [place] [address] documented as of this encounter Visit Diagnoses Not on filedocumented in this encounter Care Teams Child Support Agent Relationship Specialty Start Date End Date Eli Dietz NP [address] [place] [address] PCP - General Family Medicine 12/02/24 documented as of this encounter
--- OUTSIDE RECORDS SUMMARY | 2024-12-02 18:20 | XMS_ITS | Clinical Summary ---
Author Organization [facility] Address [address] [place] [address] Care Team Providers Care Catalytic Case Operator Name Role Phone Juan Cherry MD Primary Care Provider Social History Tobacco Use Types Packs/Day Years Used Date Smoking Tobacco: Never Assessed Sex and Gender Information Value Date Recorded Sex Assigned at Not on file Legal Sex Male 2:11 AM EST Gender Identity Not on file Sexual Orientation Not on file Plan of Treatment Health Maintenance Due Date Last Done Comments Hepatitis B Vaccines (1 of 3 - 19+ 3-dose series) 1986 Pneumococcal Vaccine: 50+ Ye ars (2 of 2 - PPSV23) 05/23/2017 03/28/2017 Pneumococcal Vaccine: Pediat rics (0 to 5 Years) and At-Risk Patients (6 to 64 Years) (2 of 2 - PPSV23) 05/23/2017 03/28/2017 Zoster Vaccines (1 of 2) 2017 Cholesterol Screening (Lipid Panel) 08/21/2022 Colorectal Cancer Screening: Colonoscopy 08/21/2022 Depression Screening 08/21/2022 HIV Screening 08/21/2022 Hepatitis C Screening 08/21/2022 Social Influencers of Health Screening 08/21/2022 Hypertension/CHF/CAD Annual BMP Blood Test 08/31/2022 COVID-19 Vaccine ( - 2023-2 5 season) 2024 Influenza Vaccine (#1) 2024 06/23/2017 DTaP,Tdap,and Td Vaccines (2 - Td or Tdap) 06/06/2026 06/06/2016 HIB Vaccines Aged Out No longer eligi ble based on patient's age to complete this topic HPV Vaccines Aged Out No longer eligi ble based on patient's age to complete this topic Hepatitis A Vaccines Aged Out No long er eligible based on patient's age to complete this topic IPV Vaccines Aged Out No longer eligi ble based on patient's age to complete this topic MMR Vaccines Aged Out No longer eligi ble based on patient's age to complete this topic Meningococcal ACWY Vaccine Aged Out N o longer eligible based on patient's age to complete this topic Meningococcal B Vacine Aged Out No lo nger eligible based on patient's age to complete this topic RSV Immunization Patients Un shantell 20 months Aged Out No longer eligible b ased on patient's age to complete this topic Varicella Vaccines Aged Out No longer eligible based on patient's age to complete this topic Care Teams Catalytic Case Operator Relationship Specialty Start Date End Date Juan Cherry MD [address] [place] [address] PCP - General Internal Medicine 01/02/17
--- OUTSIDE RECORDS SUMMARY | 2024-12-02 18:20 | XMS_ITS | Clinical Summary ---
Author Organization [employer] Address [address] [facility] 7t [place] [address] Care Team Providers Care Residential Support Worker Name Role Phone Mirela Eli LOGAN Primary Care Provider [phone] Allergies No known active allergies Medications lisinopril 40 MG tabletIndication s:Hypertension, unspecified type Take 1 tablet (40 mg) by mouth Once per day. 30 tablet 11 12/02/2024 6 Active metoprolol succinate XL (Toprol XL) 100 MG 24 hr tabletIndication s:Hypertension, unspecified type Take 1 tablet (100 mg) by mouth Once per day. Do not crush or chew. 30 tablet 11 12/02/2024 6 Active hydroCHLOROthiaz asher 12.5 MG tabletIndication s:Hypertension, unspecified type Take 1 tablet (12.5 mg) by mouth Once per day. 30 tablet 11 12/02/2024 6 Active nabumetone (Relafen) 500 MG tabletIndication s:Left hand pain Take 1 tablet (500 mg) by mouth 2 times daily for 20 days. 40 tablet 12/02/2024 5 Active Active Problems Problem Noted Date Diagnosed Date Left hand pain 12/02/2024 Hypertension 12/02/2024 Swelling 12/02/2024 Encounters Date Type Department Care Team Description 12/02/2024 3:20 PM EDT Office Visit [facility] [address] [place] [address] [phone] Left hand pain (Primary Dx); Hypertension, unspecified type; Swelling 10/19/2024 Refill [facility] [address], [place] [phone] Name, MD Ramo from Last 3 Months Social History Tobacco Use Types Packs/Day Years Used Date Smoking Tobacco: Never Assessed Sex and Gender Information Value Date Recorded Sex Assigned at Male 08/27/2024 11:47 AM EST Legal Sex Male 9:14 AM EST Gender Identity Male 08/27/2024 11:47 AM EST Sexual Orientation Choose not to disclose 2023 11:47 AM EST Last Filed Vital Signs Vital Sign Reading [...] - - Body Mass Index - - Plan of Treatment Upcoming Encounters Date Type Department Care Team (Late st Contact Info) Description 12/31/2024 2:00 PM EDT Office Visit [facility] [address] [place] [address] Eli Dietz NP [address] [place] [address] Health Maintenance Due Date Last Done Comments CT Colonography 1967 Colonoscopy 1967 Colorectal Cancer Screening 1967 Depression Screening 1967 FIT DNA/Cologuard 1967 FIT 1967 FOBT 1967 HIV Screening 1967 Lipid Panel 1967 SDOH Screening 1967 Sigmoidoscopy 1967 Alcohol/Substance Use Screening 1979 Tobacco Screening 1979 Hepatitis C Screening 1985 DTaP/Tdap/Td Vaccines (1 - Tdap) 1986 Hepatitis B Vaccines (1 of 3 - 19+ 3-dose series) 1986 Pneumococcal Vaccine: 50+ Years (2 of 2 - PPSV23) 05/23/2017 03/28/2017 Zoster Vaccines (1 of 2) 2017 COVID-19 Vaccine (3 - 2023-2 5 season) 2024 02/05/2021, 01/08/2021 Influenza Vaccine (#1) 2024 , 06/23/2017 RSV Patients and Patients Aged 60 years or older (1 - 1-dose 75+ series) 2042 HIB Vaccines Aged Out No longer eligi [...] patient's age to complete this topic Meningococcal Vaccine Aged Out No kodak mireya eligible based on patient's age to complete this topic RSV under 20 months Aged Out No longe r eligible based on patient's age to complete this topic Rotavirus Vaccines Aged Out No longer eligible based on patient's age to complete this topic Procedures Procedure Name Priority Date/Time Associated Diagnosis Comments URIC ACID Routine 12/02/2024 4:02 PM EDT Left hand pain CBC WITH AUTO DIFFERENTIAL Routine 12/02/2024 4:02 PM EDT Left hand pain COMPREHENSIVE METABOLIC PANEL Routine 12/02/2024 4:02 PM EDT Left hand pain from Last 3 Months Results * (ABNORMAL) CBC auto differential (12/02/2024 4:02 PM EDT) White Blood Count 13.9(H) 4.8 - 10.8 X10*3/uL [facility] Red Blood Count 5.49 4.60 - 5.80 X10*6/uL [facility] Hemoglobin 15.2 14.0 - 18.0 g/dl [facility] Hematocrit 46.4 42.0 - 52.0 % [facility] Mean Corpuscular Volume 84.5 80.0 - 98.0 fL [facility] Mean Corpuscular Hemoglobin 27.7 27.0 - 33.0 pg [facility] Mean Corpuscular HGB Conc 32.8 31.0 - 36.0 g/dl [facility] Red Cell Distribution Width 15.4 11.0 - 16.0 % [facility] Platelet Count 277 160 - 400 X10*3/uL [facility] Mean Platelet Volume 9.1(L) 9.4 - 12.4 fL [facility] Neutrophils Percent Auto 77.3(H) 45 - 73 % [facility] Imm Gran Pct Auto 0.8(H) 0.0 - 0.4 % [facility] Lymphocytes Percent Auto 18.0(L) 20 - 40 % [facility] Monocytes Percent Auto 3.3 2 - 11 % [facility] Eosinophils Percent Auto 0.1 0 - 4 % [facility] Basophils Percent Auto 0.5 0 - 2 % [facility] NRBC Pct Auto 0.0 0.0 - 0.2 /100WBC [facility] Neutrophils Absolute Auto 10.7(H) 2.0 - 8.3 x10*3/uL [facility] Imm Gran Abs Auto 0.11(H) 0.00 - 0.03 X10*3/uL [facility] Lymphocytes Absolute Auto 2.5 1.2 - 4.9 X10*3/uL [facility] Monocytes Absolute Auto 0.5 0.1 - 1.2 X10*3/uL [facility] Eosinophils Absolute Auto 0.0 0.0 - 0.4 X10*3/uL [facility] Basophils Absolute Auto 0.1 0.0 - 0.2 X10*3/uL [facility] NRBC Abs Auto 0.000 0.0 - 0.012 X10*3/uL [facility] Blood Venous blood specimen / Unknown 12/02/2024 4:02 PM EDT 12/02/2024 5:25 PM EDT us Eli Dietz NP LAB BLOOD ORDERABLES Final Resul t [facility] [address], [place] [phone] * (ABNORMAL) Uric acid (12/02/2024 4:02 PM EDT) Uric Acid 10.2(H) 3.4 - 7.0 mg/dL [facility] Blood Venous blood specimen / Unknown 12/02/2024 4:02 PM EDT 12/02/2024 5:25 PM EDT us Eli Dietz PRIVATE CHEF LAB BLOOD ORDERABLES Final Resul t [facility] [address] [place] [phone] * (ABNORMAL) Comprehensive Metabolic Panel (12/02/2024 4:02 PM EDT) Sodium 140 135 - 145 mmol/L [facility] Potassium 4.0 3.3 - 5.1 mmol/L [facility] Chloride 106 96 - 108 mmol/L [facility] Carbon Dioxide 26 22 - 29 mmol/L [facility] Anion Gap 12 12 - 20 [facility] Urea Nitrogen (BUN) 9 9 - 16 mg/dL [facility] Creatinine, Serum 0.76 0.5 - 1.4 mg/dL [facility] Estimated Glomerular Filt Rate >60 [facility] Comment:Chronic Kidney Disea se: Estimated GFR < 60 mL/min/[id number] Kidney Disease: Estimated GFR < 15 mL/min/1.73m2 Glucose 98 60 - 115 mg/dL [facility] Calcium 9.6 8.4 - 10.2 mg/dL [facility] Bilirubin, Total 0.5 0.0 - 1.0 mg/dL [facility] Aspartate Amino Transferase 20 5 - 37 U/L [facility] Alanine Aminotransferase 29 0 - 40 U/L [facility] Total Protein 8.1(H) 6.5 - 8.0 g/dL [facility] Albumin Level 4.6 3.5 - 5.0 g/dL [facility] Alkaline Phosphatase 94 39 - 117 U/L [facility] Blood Venous blood specimen / Unknown 12/02/2024 4:02 PM EDT 12/02/2024 5:25 PM EDT us Eli Dietz NP LAB BLOOD ORDERABLES Final Resul t [facility] [address] [place] [phone] [phone] from Last 3 Months Insurance [facility] Care Teams Residential Support Worker Relationship Specialty Start Date End Date Eli Dietz NP [address] [place] [phone] PCP - General Family Medicine 12/02/24
== END 2024-12-02 16:00 | disposition home or self-care (01) ==
LOC: HO.HHCL 15:59
PROVIDERS: Visit Provider Nurse Practitioner Family
DX: M79.642 Pain in left hand (principal)
CPT/HCPCS: 36415; 80053; 84550; 85025

== ENCOUNTER 2024-12-31 14:57 | Outpatient (REF) | payer MEDICAID, SELFPAY ==
[2024-12-31 16:09] LABS: MANUAL DIFF FLAG NO
[2024-12-31 16:28] LABS: Basophils Absolute Auto 0.1 X10*3/uL (0.0-0.2); Basophils Percent Auto 0.8 % (0-2); Eosinophils Absolute Auto 0.1 X10*3/uL (0.0-0.4); Eosinophils Percent Auto 0.9 % (0-4); Hematocrit 42.6 % (42.0-52.0); Hemoglobin 14.2 g/dl (14.0-18.0); Imm Gran Abs Auto 0.07 X10*3/uL (0.00-0.03); Imm Gran Pct Auto 0.8 % (0.0-0.4); Lymphocytes Absolute Auto 3.3 X10*3/uL (1.2-4.9); Lymphocytes Percent Auto 38.2 % (20-40); Mean Corpuscular HGB Conc 33.3 g/dl (31.0-36.0); Mean Corpuscular Hemoglobin 28.2 pg (27.0-33.0); Mean Corpuscular Volume 84.7 fL (80.0-98.0); Mean Platelet Volume 9.8 fL (9.4-12.4); Monocytes Absolute Auto 0.7 X10*3/uL (0.1-1.2); Monocytes Percent Auto 8.1 % (2-11); Neutrophils Absolute Auto 4.4 x10*3/uL (2.0-8.3); Neutrophils Percent Auto 51.2 % (45-73); Platelet Count 276 X10*3/uL (160-400); Red Blood Count 5.03 X10*6/uL (4.60-5.80); Red Cell Distribution Width 13.2 % (11.0-16.0); White Blood Count 8.5 X10*3/uL (4.8-10.8)
[2024-12-31 17:54] LABS: Alanine Aminotransferase 38 U/L (0-40); Albumin Level 4.5 g/dL (3.5-5.0); Alkaline Phosphatase 89 U/L (39-117); Anion Gap 15 (12-20); Aspartate Amino Transferase 27 U/L (5-37); Bilirubin Total 0.4 mg/dL (0.0-1.0); Blood Urea Nitrogen 13 mg/dL (9-16); Calcium 9.7 mg/dL (8.4-10.2); Carbon Dioxide 25 mmol/L (22-29); Chloride 108 mmol/L (96-108); Estimated Glomerular Filt Rate > 60; Glucose Random 84 mg/dL (60-115); Potassium 3.7 mmol/L (3.3-5.1); Sodium 144 mmol/L (135-145); Total Protein 7.1 g/dL (6.5-8.0)
--- OUTSIDE RECORDS SUMMARY | 2024-12-31 18:14 | XMS_ITS | Clinical Summary ---
Author Organization [employer] Address [address] [facility] [address] [place] [address] Care Team Providers Care Sketch Maker Name Role Phone Eli Dietz LOGAN Primary Care Provider [phone] Allergies No known active allergies Medications lisinopril 40 MG tabletIndication s:Hypertension, unspecified type Take 1 tablet (40 mg) by mouth Once per day. 30 tablet 11 12/02/2024 12/03/19 26 Active metoprolol succinate XL (Toprol XL) 100 MG 24 hr tabletIndication s:Hypertension, unspecified type Take 1 tablet (100 mg) by mouth Once per day. Do not crush or chew. 30 tablet 11 12/02/2024 12/03/19 26 Active hydroCHLOROthiaz asher 12.5 MG tabletIndication s:Hypertension, unspecified type Take 1 tablet (12.5 mg) by mouth Once per day. 30 tablet 11 12/02/2024 12/03/19 26 Active nabumetone (Relafen) 500 MG tabletIndication s:Left hand pain Take 1 tablet (500 mg) by mouth 2 times daily for 20 days. 40 tablet 12/02/2024 12/23/19 25 Active Problems Problem Noted Date Diagnosed Date Lower abdominal pain 12/31/2024 Assessment & Plan (12/31/2024 2:48 PM EDT): Lower mid abdominal pain (hx of umbillical hernia repair) with 6 - 8 bouts of diarrhea, per hx episode of diverticulitis in the past, similar symptoms utd on colonoscopy - liquid diet for 2-3 days - labs as ordered below STAT ct of abdomen, will treat based on finding Call clinic for worsening symptoms Asthma 12/18/2024 HTN (hypertension) 12/18/2024 Left hand pain 12/02/2024 Assessment & Plan (12/03/2024 11:19 AM EDT): Hx of carpal tunnel repair, spontaneous onset of sig edema and pain with radial nerve symptoms Tender, no injury Ddx includes gout though not erythematous and no preceding change to diet Nsaid rx, wear nocturnal bracing Labs as ordered below If no improvement consider pseudogout and oral prednisone Hypertension 12/02/2024 Assessment & Plan (12/03/2024 11:19 AM EDT): Above goal but pt is out of med, Resume lisinopril and metoprolol, hold hydrochlorothiazide until labs as completed and hand pain improves in case this is an atypical gout flare, Future bmp ordered Return to clinic in 4-6 weeks Swelling 12/02/2024 Encounters Date Type Department Care Team Description 12/31/2024 2:00 PM EDT Office Visit [facility] [address] [place] [phone] Eli Dietz NP Primary hypertension (Primary Dx); Lower abdominal pain 12/31/2024 Travel 12/18/2024 Telephone [facility] [address] [place] [phone] Marry Guajardo [place] Chart Prep 12/03/2024 Telephone [facility] [address] [place] [phone] Eli Dietz NP Results 12/02/2024 3:20 PM EDT Office Visit [facility] [address] [place] [phone] Eli Dietz NP Left hand pain (Primary Dx); Hypertension, unspecified type; Swelling 10/19/2024 Refill [facility] [address] [place] [address] [phone] Name, MD Ramo from Last 3 Months Immunizations Name Administration Dates Next Due INFLUENZA INJECTABLE QUADRIV ALANT CCIIV4 MDCK Multi-dose vial 06/23/2017 Influenza injectable quadrivalent preservative f ree 07/29/2023 Pneumococcal Conjugate PCV 13 03/28/2017 Social History Tobacco Use Types Packs/Day Years Used Date Smoking Tobacco: Never Smokeless Tobacco: Never Tobacco Cessation:Counseling Given: Not Answered Depression Answer Date Recorded Patient Health Questionnaire-9 Score 13 12/31/2024 Patient Health Questionnaire-9 Score 13 12/31/2024 Last PHQ-9: Questionnaire Data Not on file 0 12/31/2024 Housing Stability Answer Date Recorded What is your housing situation today? I am not s ure 12/31/[address] you li ve. Do you have problems with any of the following? None of the above 12/31/2024 Food Insecurity Answer Date Recorded Within the past 12 months, y ou worried that your food would run out before you got money to buy more: Never True 2024 Within the past 12 months,th e food you bought just didn't last and you didn't have enough money to get more: Sometimes True 12/31/2024 Utilities Answer Date Recorded In the past 12 months, has t he electric, gas, oil or water company threatened to shut off services in your home? No 12/31/2024 Depression Answer Date Recorded Patient Health Questionnaire-2 Score 1 12/31/2024 Internet Access Answer Date Recorded Internet Access Q1 Yes 12/31/2024 Internet Access Q2 Not on file 12/31/2024 Sex and Gender Information Value Date Recorded Sex Assigned at Male 08/27/2024 11:47 AM EST Legal Sex Male 9:14 AM EST Gender Identity Male 08/27/2024 11:47 AM EST Sexual Orientation Choose not to disclose 2023 11:47 AM EST Last Filed Vital Signs Vital Sign Reading Time Taken Comments Blood Pressure 129/76 12/31/2024 2:22 PM EDT Pulse 89 12/31/2024 2:22 PM EDT Temperature 36.3 ??C (97.4 ??F) 12/31/2024 2:22 PM ED T Respiratory Rate 20 12/31/2024 2:22 PM EDT Oxygen Saturation 97% 12/31/2024 2:22 PM EDT Inhaled Oxygen Concentration - - Weight 104 kg (229 lb 9.6 oz) 12/31/2024 2:22 PM EDT Height 177.8 cm (5' 10 ) 12/31/2024 2:22 PM EDT Body Mass Index 32.94 12/31/2024 2:22 PM EDT Plan of Treatment Upcoming Encounters Date Type Department Care Team (Late st Contact Info) Description 01/27/2025 11:30 AM EDT Telemedicine [facility] [address] [place], [place] [phone] Eli Dietz NP [address] [place] [address] Health Maintenance Due Date Last Done Comments CT Colonography 1967 Colonoscopy 1967 Colorectal Cancer Screening 1967 FIT DNA/Cologuard 1967 FIT 1967 FOBT 1967 HIV Screening 1967 Lipid Panel 1967 SDOH Screening 1967 Sigmoidoscopy 1967 Hepatitis C Screening 1985 DTaP/Tdap/Td Vaccines (1 - Tdap) 1986 Hepatitis B Vaccines (1 of 3 - 19+ 3-dose series) 1986 Pneumococcal Vaccine: 50+ Years (2 of 2 - PPSV23) 05/23/2017 03/28/2017 Zoster Vaccines (1 of 2) 2017 COVID-19 Vaccine (3 - 2023-2 5 season) 2024 02/05/2021, 01/08/2021 Influenza Vaccine (#1) 2024 , 06/23/2017 Depression Monitoring 07/02/2025 12/31/2024 , 12/31/2024 Alcohol/Substance Use Screening 12/31/2025 12/31/2024 Depression Screening 12/31/2025 12/31/2024, 12/31/2024 Tobacco Screening 12/31/2025 12/31/2024 RSV Patients and Patients Aged 60 years [...] Diagnosis Comments CBC WITH AUTO DIFFERENTIAL Routine 12/31/2024 2:58 PM EDT Lower abdominal pain COMPREHENSIVE METABOLIC PANEL Routine 12/31/2024 2:58 PM EDT Primary hypertension Lower abdominal pain URIC ACID Routine 12/02/2024 4:02 PM EDT Left hand pain CBC WITH AUTO DIFFERENTIAL Routine 12/02/2024 4:02 PM EDT Left hand pain COMPREHENSIVE METABOLIC PANEL Routine 12/02/2024 4:02 PM EDT Left hand pain from Last 3 Months Results * (ABNORMAL) CBC auto differential (12/31/2024 2:58 PM EDT) Only the most recent of2 resultswithin the time period is included. White Blood Count 8.5 4.8 - 10.8 X10*3/uL [facility] Red Blood Count 5.03 4.60 - 5.80 X10*6/uL [facility] Hemoglobin 14.2 14.0 - 18.0 g/dl [facility] Hematocrit 42.6 42.0 - 52.0 % [facility] Mean Corpuscular Volume 84.7 80.0 - 98.0 fL [facility] Mean Corpuscular Hemoglobin 28.2 27.0 - 33.0 pg [facility] Mean Corpuscular HGB Conc 33.3 31.0 - 36.0 g/dl [facility] Red Cell Distribution Width 13.2 11.0 - 16.0 % [facility] Platelet Count 276 160 - 400 X10*3/uL [facility] Mean Platelet Volume 9.8 9.4 - 12.4 fL [facility] Neutrophils Percent Auto 51.2 45 - 73 % [facility] Imm Gran Pct Auto 0.8(H) 0.0 - 0.4 % [facility] Lymphocytes Percent Auto 38.2 20 - 40 % [facility] Monocytes Percent Auto 8.1 2 - 11 % [facility] Eosinophils Percent Auto 0.9 0 - 4 % [facility] Basophils Percent Auto 0.8 0 - 2 % [facility] NRBC Pct Auto 0.0 0.0 - 0.2 /100WBC [facility] Neutrophils Absolute Auto 4.4 2.0 - 8.3 x10*3/uL [facility] Imm Gran Abs Auto 0.07(H) 0.00 - 0.03 X10*3/uL [facility] Lymphocytes Absolute Auto 3.3 1.2 - 4.9 X10*3/uL [facility] Monocytes Absolute Auto 0.7 0.1 - 1.2 X10*3/uL [facility] Eosinophils Absolute Auto 0.1 0.0 - 0.4 X10*3/uL [facility] Basophils Absolute Auto 0.1 0.0 - 0.2 X10*3/uL [facility] NRBC Abs Auto 0.000 0.0 - 0.012 X10*3/uL [facility] Blood Venous blood specimen / Unknown 12/31/2024 2:58 PM EDT 12/31/2024 4:04 PM EDT us Eli Dietz MEDIA CENTER ASSISTANT LAB BLOOD ORDERABLES Final Resul t [facility] [address] [place] [address] [phone] * Comprehensive Metabolic Panel (12/31/2024 2:58 PM EDT) Only the most recent of2 resultswithin the time period is included. Sodium 144 135 - 145 mmol/L [facility] Potassium 3.7 3.3 - 5.1 mmol/L [facility] Chloride 108 96 - 108 mmol/L [facility] Carbon Dioxide 25 22 - 29 mmol/L [facility] Anion Gap 15 12 - 20 [facility] Urea Nitrogen (BUN) 13 9 - 16 mg/dL [facility] Creatinine, Serum 0.75 0.5 - 1.4 mg/dL [facility] Estimated Glomerular Filt Rate >60 [facility] Comment:Chronic Kidney Disea se: Estimated GFR < 60 mL/min/[id number] Kidney Disease: Estimated GFR < 15 mL/min/1.73m2 Glucose 84 60 - 115 mg/dL [facility] Calcium 9.7 8.4 - 10.2 mg/dL [facility] Bilirubin, Total 0.4 0.0 - 1.0 mg/dL [facility] Aspartate Amino Transferase 27 5 - 37 U/L [facility] Alanine Aminotransferase 38 0 - 40 U/L [facility] Total Protein 7.1 6.5 - 8.0 g/dL [facility] Albumin Level 4.5 3.5 - 5.0 g/dL [facility] Alkaline Phosphatase 89 39 - 117 U/L [facility] Blood Venous blood specimen / Unknown 12/31/2024 2:58 PM EDT 12/31/2024 4:04 PM EDT us Eli Dietz MEDIA CENTER ASSISTANT LAB BLOOD ORDERABLES Final Resul t Performing Organization Address City/[facility]/ZIP Co de Phone Number [facility] [address] [place] [phone] * (ABNORMAL) Uric acid (12/02/2024 4:02 PM EDT) Uric Acid 10.2(H) 3.4 - 7.0 mg/dL [facility] Blood Venous blood specimen / Unknown 12/02/2024 4:02 PM EDT 12/02/2024 5:25 PM EDT us Eli Dietz MEDIA CENTER ASSISTANT LAB BLOOD ORDERABLES Final Resul t [facility] [address] [place] [address] [phone] from Last 3 Months Insurance [facility] C[facility] [employer] Care Teams Sketch Maker Relationship Specialty Start Date End Date Eli Dietz NP [address] [place] [phone] PCP - General Family Medicine 12/02/24
--- OUTSIDE RECORDS SUMMARY | 2024-12-31 18:14 | XMS_ITS | Encounter Summary ---
Author Organization [employer] Address [address] [facility] 7t [place] [address] Care Team Providers Care Burglar Alarm Mechanic Name Role Phone Eli Dietz LOGAN Primary Care Provider [phone] Encounter Details Date Type Department Care Team (Latest Contact Info) Description 12/31/2024 Travel Social History Tobacco Use Types Packs/Day Years Used Date Smoking Tobacco: Never Smokeless Tobacco: Never Depression Answer Date Recorded Patient Health Questionnaire-9 [...] Info) Description 01/27/2025 11:30 AM EDT Telemedicine [facility] [address] [place] [address] Eli Dietz NP [address] [place] [address] documented as of this encounter Visit Diagnoses Not on filedocumented in this encounter Additional Health Concerns Assessment Noted Time PHQ-9 Depression Total Score: 13 025 2:56 PM EDT documented as of this encounter Care Teams Burglar Alarm Mechanic Relationship Specialty Start Date End Date Eli Dietz NP [address] [place] [address] PCP - General Family Medicine 12/02/24 documented as of this encounter
--- OUTSIDE RECORDS SUMMARY | 2024-12-31 18:14 | XMS_ITS | Encounter Summary ---
Author Organization [employer] Address [address] [facility] 7t [place] [address] Care Team Providers Care Senior Packaging Engineer Name Role Phone Eli Dietz CONSTRUCTION DIRECTOR Primary Care Provider [phone] Reason for Visit * Reason Comments Med Refill Encounter Details Date Type Department Care Team (Late Contact Info) Description 10/19/2024 Refill [facility] [address] [place] [phone] Name, MD Ramo [address] [place] [phone] Social History Tobacco Use Types Packs/Day Years [...] Encounters Date Type Department Care Team (Late Contact Info) Description 01/27/2025 11:30 AM EDT Telemedicine [facility] [address] [place] [phone] Eli Dietz NP [address] [place] [address] documented as of this encounter Visit Diagnoses Not on filedocumented in this encounter Care Teams Senior Packaging Engineer Relationship Specialty Start Date End Date Eli Dietz NP [address] [place] [phone] PCP - General Family Medicine 12/02/24 documented as of this encounter
--- OUTSIDE RECORDS SUMMARY | 2024-12-31 18:14 | XMS_ITS | Clinical Summary ---
Author Organization [facility] Address [address] [place] [address] Care Team Providers Care Public Relations Consultant Name Role Phone Juan Cherry MD Primary [...] Annual BMP Blood Test 08/31/2022 COVID-19 Vaccine (2023-2 5 season) 2024 Influenza Vaccine (Season Ended) 2025 06/23/20 17 DTaP,Tdap,and Td Vaccines (2 - Td or [...] age to complete this topic Meningococcal B Vaccine Aged Out No l onger eligible based on patient's age to complete this topic RSV Immunization Patients Un shantell 20 months Aged Out No longer eligible b ased on patient's age to complete this topic Varicella Vaccines Aged Out No longer eligible based on patient's age to complete this topic Care Teams Public Relations Consultant Relationship Specialty Start Date End Date Juan Cherry MD [address] [place] [address] PCP - General Internal Medicine 01/02/17
--- OUTSIDE RECORDS SUMMARY | 2024-12-31 18:14 | XMS_ITS | Encounter Summary ---
Author Organization [employer] Address [address] [facility] [address] [place] [address] Care Team Providers Care Financial Institution Manager Name Role Phone Eli Dietz NP Primary Care Provider [phone] Reason for Referral * Imaging (STAT) - Authorized Specialty Diagnoses / Procedures Referred By Conthoracio t Referred To Contact Radiology Diagnoses Lower abdominal pain Procedures CT Abdomen Pelvis w/ and w/o Contrast Eli Dietz NP [address] [place] [address] Phone: tel: fax: [address] Phone: tel: fax: Referral ID Status Reason Start Date Expiration Date V isits Requested Visits Authorized [id number] Authorized 12/31/2024 12/31/2025 1 1 Encounter Details Date Type Department Care Team (Late st Contact Info) Description 12/31/2024 2:00 PM EDT Office Visit [facility] [address] [place], [place] [phone] Eli Dietz NP [address] [place], [place] [phone] Primary hypertension (Primary Dx); Lower abdominal pain Social History Tobacco Use Types Packs/Day Years [...] Mass Index 32.94 12/31/2024 2:22 PM EDT documented in this encounter Progress Notes * Eli Dietz NP - 12/31/2024 2:00 PM EDT Subjective Hans Castro is a 59 y.o. male who presents to the office for follow up visit - chronic conditions. Interim history: Current concerns: Walking, taking medication as prescribed, walks for 45 minutes, no chest pain or pressure, not eating a lot A few years ago lower abdominal pain, frequent diarrhea, lower abdominal pain and diarrhea, 1-2 hours comes and goes, no relationship to food, weeks, does endorse rare flecks of blood, consistent with hemerrhoids, 6-8 times no abx recently Hx of hernia repair, epigastric region painful geovanna when grandson plays No fever Utd on colonoscopy Patient Active Problem List Diagnosis Left hand pain Hypertension Swelling Asthma HTN (hypertension) Lower abdominal pain Review of Systems Constitutional: Negative for activity change, appetite change and fever. HENT: Negative for congestion. Gastrointestinal: Positive for abdominal pain, blood in stool and diarrhea. Objective Visit Vitals BP 129/76 (BP Location: Right arm, Patient Position: Sitting, BP Cuff Size: Large adult) Pulse 89 Temp 97.4 ??F (36.3 ??C) (Temporal) Resp 20 Ht 5' 10 (1.778 m) Wt 229 lb 9.6 oz (104 kg) SpO2 97% BMI 32.94 kg/m?? Smoking Status Never BSA 2.27 m?? Physical Exam Vitals reviewed. Constitutional: Appearance: Normal appearance. He is obese. HENT: Head: Normocephalic. Cardiovascular: Rate and Rhythm: Normal rate. Heart sounds: Normal heart sounds. Pulmonary: Breath sounds: Normal breath sounds. Abdominal: General: Bowel sounds are normal. Palpations: Abdomen is soft. There is no mass. Tenderness: There is abdominal tenderness. There is no guarding or rebound. Musculoskeletal: Cervical back: Neck supple. Neurological: Mental Status: He is alert. Psychiatric: Mood and Affect: Mood normal. Assessment/Plan Problem List Items Addressed This Visit HTN (hypertension) - Primary Relevant Orders Comprehensive Metabolic Panel Lower abdominal pain Current Assessment & Plan Lower mid abdominal pain (hx of umbillical hernia repair) with 6 - 8 bouts of diarrhea, per hx episode of diverticulitis in the past, similar symptoms utd on colonoscopy - liquid diet for 2-3 days - labs as ordered below STAT ct of abdomen, will treat based on finding Call clinic for worsening symptoms Relevant Orders CT Abdomen Pelvis w/ and w/o Contrast Comprehensive Metabolic Panel CBC auto differential Current Outpatient Medications Medication Sig Dispense Refill hydroCHLOROthiazide 12.5 MG tablet Take 1 tablet (12.5 mg) by mouth Once per day. 30 tablet 11 lisinopril 40 MG tablet Take 1 tablet (40 mg) by mouth Once per day. 30 tablet 11 metoprolol succinate XL (Toprol XL) 100 MG 24 hr tablet Take 1 tablet (100 mg) by mouth Once per day. Do not crush or chew. 30 tablet 11 No current facility-administered medications for this visit. documented in this encounter Miscellaneous Notes * Assessment & Plan Note - Eli Dietz NP - 12/31/2024 2:48 PM EDTAssociated Problem(s): Lower abdominal pain Lower mid abdominal pain (hx of umbillical hernia repair) with 6 - 8 bouts of diarrhea, per hx episode of diverticulitis in the past, similar symptoms utd on colonoscopy - liquid diet for 2-3 days - labs as ordered below STAT ct of abdomen, will treat based on finding Call clinic for worsening symptoms documented in this encounter Plan of Treatment Upcoming Encounters Date Type Department Care Team (Late st Contact Info) Description 01/27/2025 11:30 AM EDT Telemedicine [facility] [address] [place] [address] Eli Dietz NP [address] [place] [address] Scheduled Orders Name Type Priority Associated Diagnoses Orde r Schedule CT Abdomen Pelvis w/ and w/o Contrast Imaging STAT Lower abdominal pain Expected: 12/31/2024, Expires: 12/31/2025 documented as of this encounter Procedures Procedure Name Priority Date/Time Associated Diagnosis Comments CBC WITH AUTO DIFFERENTIAL Routine 12/31/2024 2:58 PM EDT Lower abdominal pain COMPREHENSIVE METABOLIC PANEL Routine 12/31/2024 2:58 PM EDT Primary hypertension Lower abdominal pain documented in this encounter Results * (ABNORMAL) CBC auto differential (12/31/2024 2:58 PM EDT) White Blood Count 8.5 4.8 - 10.8 X10*3/uL [facility] Red Blood Count 5.03 4.60 - 5.80 X10*6/uL [facility] Hemoglobin 14.2 14.0 - 18.0 g/dl [facility] Hematocrit 42.6 42.0 - 52.0 % [facility] Mean Corpuscular Volume 84.7 80.0 - 98.0 fL [facility] Mean Corpuscular Hemoglobin 28.2 27.0 - 33.0 pg [facility] Mean Corpuscular HGB Conc 33.3 31.0 - 36.0 g/dl [facility] Red Cell Distribution Width 13.2 11.0 - 16.0 % [facility] Platelet Count 276 160 - 400 X10*3/uL [facility] Mean Platelet Volume 9.8 9.4 - 12.4 fL [facility] Neutrophils Percent Auto 51.2 45 - 73 % [facility] Imm Gran Pct Auto 0.8(H) 0.0 - 0.4 % [facility] Lymphocytes Percent Auto 38.2 20 - 40 % [facility] Monocytes Percent Auto 8.1 2 - 11 % [facility] Eosinophils Percent Auto 0.9 0 - 4 % [facility] Basophils Percent Auto 0.8 0 - 2 % [facility] NRBC Pct Auto 0.0 0.0 - 0.2 /100WBC [facility] Neutrophils Absolute Auto 4.4 2.0 - 8.3 x10*3/uL [facility] Imm Gran Abs Auto 0.07(H) 0.00 - 0.03 X10*3/uL [facility] Lymphocytes Absolute Auto 3.3 1.2 - 4.9 X10*3/uL [facility] Monocytes Absolute Auto 0.7 0.1 - 1.2 X10*3/uL [facility] Eosinophils Absolute Auto 0.1 0.0 - 0.4 X10*3/uL [facility] Basophils Absolute Auto 0.1 0.0 - 0.2 X10*3/uL [facility] NRBC Abs Auto 0.000 0.0 - 0.012 X10*3/uL [facility] Blood Venous blood specimen / Unknown 12/31/2024 2:58 PM EDT 12/31/2024 4:04 PM EDT us Eli Dietz RECEIVING ASSOCIATE LAB BLOOD ORDERABLES Final Resul t [facility] [address], [place] [phone] * Comprehensive Metabolic Panel (12/31/2024 2:58 PM EDT) Sodium 144 135 - 145 mmol/L [facility] Potassium 3.7 3.3 - 5.1 mmol/L [facility] Chloride 108 96 - 108 mmol/L [facility] Carbon Dioxide 25 22 - 29 mmol/L [facility] Anion Gap 15 12 - 20 [facility] Urea Nitrogen (BUN) 13 9 - 16 mg/dL [facility] Creatinine, Serum 0.75 0.5 - 1.4 mg/dL [facility] Estimated Glomerular Filt Rate >60 [facility] Comment:Chronic Kidney Disea se: Estimated GFR < 60 mL/min/[id number] Kidney Disease: Estimated GFR < 15 mL/min/1.73m2 Glucose 84 60 - 115 mg/dL [facility] Calcium 9.7 8.4 - 10.2 mg/dL [facility] Bilirubin, Total 0.4 0.0 - 1.0 mg/dL [facility] Aspartate Amino Transferase 27 5 - 37 U/L [facility] Alanine Aminotransferase 38 0 - 40 U/L [facility] Total Protein 7.1 6.5 - 8.0 g/dL [facility] Albumin Level 4.5 3.5 - 5.0 g/dL [facility] Alkaline Phosphatase 89 39 - 117 U/L [facility] Blood Venous blood specimen / Unknown 12/31/2024 2:58 PM EDT 12/31/2024 4:04 PM EDT us Eli Dietz NP LAB BLOOD ORDERABLES Final Resul t [facility] [address] [place] [address] [phone] documented in this encounter Visit Diagnoses Diagnosis Primary hypertension- Primary Unspecified essential hypertension Lower abdominal pain Abdominal pain, other specified site documented in this encounter Additional Health Concerns Assessment Noted Time PHQ-9 Depression Total Score: 13 025 2:56 PM EDT documented as of this encounter Care Teams Financial Institution Manager Relationship Specialty Start Date End Date Eli Dietz NP [address] [place] [address] PCP - General Family Medicine 12/02/24 documented as of this encounter
== END 2024-12-31 14:58 | disposition home or self-care (01) ==
LOC: HO.HHCL 14:57
PROVIDERS: Visit Provider Nurse Practitioner Family
DX: R10.30 Lower abdominal pain, unspecified (principal); I10 Essential (primary) hypertension
CPT/HCPCS: 36415; 80053; 85025

== ENCOUNTER 2025-01-07 15:39 | Outpatient (REF) | payer MEDICAID, SELFPAY ==
--- NOTE | ~2025-01-07 | XR_ITS ---
EXAMINATION: XR WRIST, LEFT CLINICAL INFORMATION: acute swelling of left wrist, no known trauma COMPARISON: None available. TECHNIQUE: PA, lateral, and oblique views of the left wrist. FINDINGS: No fracture, dislocation, or suspicious bone lesion. Normal bone mineralization. Normal alignment. Joint spaces are preserved. No significant arthropathy. No erosions detected. Mild blunting of the ulnar styloid, nonspecific. Soft tissues demonstrate no definitive abnormalities. XR/XR wrist LT min 3V IMPRESSION: 1. No acute bony abnormalities. Electronically signed by: Nba Nagel MD 01/07/2025 04:31 PM EDT
--- OUTSIDE RECORDS SUMMARY | 2025-01-07 18:29 | XMS_ITS | Clinical Summary ---
Author Organization [facility] ity Address [address] [place] [address] Care Team Providers Care Book Retailer Name Role Phone Juan Cherry MD Primary [...] age to complete this topic Care Teams Book Retailer Relationship Specialty Start Date End Date Juan Cherry MD [address] [place] [address] PCP - General Internal Medicine 01/02/17
--- OUTSIDE RECORDS SUMMARY | 2025-01-07 18:29 | XMS_ITS | Encounter Summary ---
Author Organization [employer] Address [address] [facility] 7[address] [place] [address] Care Team Providers Care Court Specialist Name Role Phone Eli Dietz FLIGHT ENGINEER PERFORMANCE QUALIFIED Primary Care Provider [phone] Reason for Visit * Reason Comments Med Refill Encounter Details Date Type Department Care Team (Late Contact Info) Description 10/19/2024 Refill [facility] [address] [place] [phone] Name, MD Ramo [address] [place] [phone] Social History Tobacco Use Types Packs/Day Years [...] Info) Description 01/27/2025 11:30 AM EDT Telemedicine [facility] [address] [place] [phone] Eli Dietz NP [address] [place] [address] documented as of this encounter Visit Diagnoses Not on filedocumented in this encounter Care Teams Court Specialist Relationship Specialty Start Date End Date Eli Dietz NP [address] [place] [id number] PCP - General Family Medicine 12/02/24 documented as of this encounter
--- OUTSIDE RECORDS SUMMARY | 2025-01-07 18:29 | XMS_ITS | Encounter Summary ---
Author Organization [employer] Address [address] [facility] 7t [place] [address] Care Team Providers Care Computer Terminal Operator Name Role Phone Eli Dietz NP Primary Care Provider [phone] Reason for Referral * Consultation (Urgent) - Pending Review Specialty Diagnoses / Procedures Referred By Oli espino Referred To Contact Orthopaedic Surgery Diagnoses Left hand pain Eli Dietz NP [address] [place] [address] Phone: tel: fax: Referral ID Status Reason Start Date Expiration Date Visits Requested Visits Authorized [id number] Pending Review Specialty Services Required 01/07/2025 01/07/2026 1 1 Reason for Visit * Reason Comments Hand Pain Encounter Details Date Type Department Care Team (Late st Contact Info) Description 01/07/2025 2:40 PM EDT Office Visit [facility] [address] [place] [address] Eli Dietz NP [address] [place] [address] Acute cough (Primary Dx); Left hand pain; Dietary counseling; Exercise counseling; History of carpal tunnel syndrome; Mild intermittent asthma, unspecified whether complicated Social History Tobacco Use Types Packs/Day Years [...] Sign Reading Time Taken Comments Blood Pressure 133/82 01/07/2025 2:15 PM EDT Pulse 76 01/07/2025 2:15 PM EDT Temperature 36.6 ??C (97.9 ??F) 01/07/2025 2:15 PM ED T Respiratory Rate 20 01/07/2025 2:15 PM EDT Oxygen Saturation 97% 01/07/2025 2:15 PM EDT Inhaled Oxygen Concentration - - Weight 107 kg (235 lb 3.2 oz) 01/07/2025 2:15 PM EDT Height - - Body Mass Index 33.75 12/31/2024 2:22 PM EDT documented in this encounter Progress Notes * Eli Dietz NP - 01/07/2025 2:40 PM EDT Subjective: Hans Castro is a 59 y.o. male who presents to the office for a sick visit. HPI Left hand pain x 3 days, no fall, hx of carpal tunnel repair, unable to flex wrist, nothing helping Does not have wrist brace Cough, asthma related does need an inhaler No the same pain as gout Patient Active Problem List Diagnosis Left hand pain Hypertension Swelling Asthma HTN (hypertension) Lower abdominal pain Acute cough Exercise counseling Dietary counseling History of carpal tunnel syndrome Review of Systems Musculoskeletal: Positive for joint swelling. Negative for arthralgias and myalgias. No Known Allergies Objective: Visit Vitals BP 133/82 (BP Location: Right arm, Patient Position: Sitting, BP Cuff Size: Large adult) Pulse 76 Temp 97.9 ??F (36.6 ??C) (Temporal) Resp 20 Wt 235 lb 3.2 oz (107 kg) SpO2 97% BMI 33.75 kg/m?? Smoking Status Never BSA 2.3 m?? Physical Exam Constitutional: Appearance: Normal appearance. Cardiovascular: Rate and Rhythm: Regular rhythm. Heart sounds: Normal heart sounds. Musculoskeletal: Cervical back: Neck supple. Neurological: Mental Status: He is alert. Assessment/Plan: Problem List Items Addressed This Visit Left hand pain Current Assessment & Plan Acute swelling s/p carpal tunnel repair limited rom X-ray ordered Possible carpal tunnel symptom however, swelling is unexplained Hx of gout, but never in wrist, Labs as ordered below Relevant Orders Referral to Orthopaedic Surgery CBC auto differential Sed Rate by Modified Westergren C-reactive Protein Uric acid XR Wrist 3+ Views Left Asthma Current Assessment & Plan Resume albuterol prn , suspect allergies Acute cough - Primary Exercise counseling Current Assessment & Plan Dietary Recommendations: Fruits, vegetables, whole grains, protein foods, and fat-free or low-fat dairy products are healthychoices. Eat different types of protein foods in your diet. This can include seafood, lean meats, poultry, beans, peas, lentils, nuts, seeds, soy products, and eggs. Limit foods and beverages higher in added sugars, saturated fat, and sodium. Exercise Recommendations: At least 150 minutes of moderate-intensity physical activity per week, or an equivalent combinationof moderate- and vigorous-intensity activity Dietary counseling Current Assessment & Plan Encouraged daily movement, working up to 30 minutes daily Dietary Recommendations: Fruits, vegetables, whole grains, protein foods, and fat-free or low-fat dairy products are healthychoices. Eat different types of protein foods in your diet. This can include seafood, lean meats, poultry, beans, peas, lentils, nuts, seeds, soy products, and eggs. Limit foods and beverages higher in added sugars, saturated fat, and sodium. Exercise Recommendations: At least 150 minutes of moderate-intensity physical activity per week, or an equivalent combinationof moderate- and vigorous-intensity activity History of carpal tunnel syndrome Current Assessment & Plan See above, brace applied, referral to ortho Pt to resume nocturnal bracing Relevant Orders XR Wrist 3+ Views Left Current Outpatient Medications Medication Sig Dispense Refill albuterol 108 (90 Base) MCG/ACT inhaler Inhale 2 puffs every 6 (six) hours if needed for wheezing. 18 g 11 hydroCHLOROthiazide 12.5 MG tablet Take 1 tablet [...] Plan Note - Eli Dietz NP - 01/07/2025 2:46 PM EDTAssociated Problem(s): Exercise counseling Dietary Recommendations: Fruits, vegetables, whole grains, protein foods, and fat-free or low-fat dairy products are healthychoices. Eat different types of protein foods in your diet. This can include seafood, lean meats, poultry, beans, peas, lentils, nuts, seeds, soy products, and eggs. Limit foods and beverages higher in added sugars, saturated fat, and sodium. Exercise Recommendations: At least 150 minutes of moderate-intensity physical activity per week, or an equivalent combinationof moderate- and vigorous-intensity activity * Assessment & Plan Note - Eli Dietz NP - 01/07/2025 2:40 PM EDTAssociated Problem(s): History of carpal tunnel syndrome See above, brace applied, referral to ortho Pt to resume nocturnal bracing * Assessment & Plan Note - Eli Dietz NP - 01/07/2025 2:40 PM EDTAssociated Problem(s): Left hand pain Acute swelling s/p carpal tunnel repair limited rom X-ray ordered Possible carpal tunnel symptom however, swelling is unexplained Hx of gout, but never in wrist, Labs as ordered below * Assessment & Plan Note - Eli Dietz NP - 01/07/2025 2:37 PM EDTAssociated Problem(s): Asthma Resume albuterol prn , suspect allergies * Assessment & Plan Note - Eli Dietz NP - 01/07/2025 2:30 PM EDTAssociated Problem(s): Dietary counseling Encouraged daily movement, working up to 30 minutes daily Dietary Recommendations: Fruits, vegetables, whole grains, protein foods, and fat-free or low-fat dairy products are healthychoices. Eat different types of protein foods in your diet. This can include seafood, lean meats, poultry, beans, peas, lentils, nuts, seeds, soy products, and eggs. Limit foods and beverages higher in added sugars, saturated fat, and sodium. Exercise Recommendations: At least 150 minutes of moderate-intensity physical activity per week, or an equivalent combinationof moderate- and vigorous-intensity activity documented in this encounter Plan of Treatment Upcoming Encounters Date Type Department Care Team (Late st Contact Info) Description 01/27/2025 11:30 AM EDT Telemedicine [facility] [address] [place] [address] Eli Dietz NP [address] [place] [address] Scheduled Orders Name Type Priority Associated Diagnoses Orde r Schedule CBC auto differential Lab Routine Left hand pain Expected: 01/07/2025 (Approximate), Expires: 01/07/2026 Sed Rate by Modified Westergren Lab Routine Left hand pain Expected: 01/07/2025, Expires: 01/07/2026 C-reactive Protein Lab Routine Left hand pain Expected: 01/07/2025 (Approximate), Expires: 01/07/2026 Uric acid Lab Routine Left hand pain Expected: 01/07/2025 (Approximate), Expires: 01/07/2026 Scheduled Referrals Name Type Priority Associated Diagnoses Order Schedule Referral to Orthopaedic Surgery Outpatient Referral Urgent Left hand pain Expected: 01/07/2025 (Approximate), Expires: 01/07/2026 documented as of this encounter Procedures Procedure Name Priority Date/Time Associated Diagnosis Comments XR WRIST 3+ VIEWS LEFT Routine 01/07/2025 3:39 PM EDT Left hand pain History of carpal tunnel syndrome documented in this encounter Results * XR Wrist 3+ Views Left (01/07/2025 3:39 PM EDT) Anatomical Region Laterality Modality Upper Extremities, Wrist Left Radiogr aphic Imaging 01/07/2025 3:39 PM EDT Narrative 01/07/2025 4:34 PM EDT ?[facility] ?[address] [facility] [address] [facility] ?[place] [phone] ?XRay Report ? Signed ? Patient: Matthew Scruggs,Hans ?MR# ?? : [id number] ? : 1965 ?Acct:[id number] ? Age/Sex: 59 / M ?ADM Date: 04/22/25 ? Loc: HO.HHCX ? Attending Jeff Santiagoef POKER MANAGER ? Ordering Physician: Eli Dietz POKER MANAGER ?? Date of Service: 01/07/25 ?? Procedure(s): XR wrist LT min 3V ?? Accession Number(s): [id number] ? cc: Eli Dietz POKER MANAGER ? EXAMINATION: ?? XR WRIST, LEFT ? CLINICAL INFORMATION: ?? acute swelling of left wrist, no known trauma ? COMPARISON: ?? None available. ? TECHNIQUE: ?? PA, lateral, and oblique views of the left wrist. ? FINDINGS: ?? No fracture, dislocation, or suspicious bone lesion. Normal bone ?? mineralization. ?? Normal alignment. ?? Joint spaces are preserved. No significant arthropathy. No erosions ?? detected. ?? Mild blunting of the ulnar styloid, nonspecific. ? Soft tissues demonstrate no definitive abnormalities. ? XR/XR wrist LT min 3V ?? IMPRESSION: ?? 1. No acute bony abnormalities. ? Electronically signed by: ??Nba Nagel MD ??01/07/2025 04:31 PM EDT RP ? Dictated By: ?Nba Nagel MD ? Signed By: ?<Electronically signed by Nba Nagel MD in OV> ?01/07/25 1631 ? DD/ 1539 ? TD/TT: 01/07/25 1600 ? Grades 1 6 Tutor: ? Procedure Note Margarita, Tanner - 01/07/[address] [address] XRay Report Signed Patient: Solange Staples# : [id number] : 1965Acct:[id number] Age/Sex: 59 / MADM Date: 01/07/25 Loc: HO.HHCX Attending Dr: Eli Dietz POKER MANAGER Ordering Physician: Eli Dietz NP Date of Service: 01/07/25 Procedure(s): XR wrist LT min 3V Accession Number(s): [id number] cc: Eli Dietz POKER MANAGER EXAMINATION: XR WRIST, LEFT CLINICAL INFORMATION: acute swelling of left wrist, no known trauma COMPARISON: None available. TECHNIQUE: PA, lateral, and oblique views of the left wrist. FINDINGS: No fracture, dislocation, or suspicious bone lesion. Normal bone mineralization. Normal alignment. Joint spaces are preserved. No significant arthropathy. No erosions detected. Mild blunting of the ulnar styloid, nonspecific. Soft tissues demonstrate no definitive abnormalities. XR/XR wrist LT min 3V IMPRESSION: 1. No acute bony abnormalities. Electronically signed by: Nba Nagel MD 01/07/2025 04:31 PM EDT RP Dictated By: Nba Nagel MD Signed By: <Electronically signed by Nba Nagel MD in OV> 01/07/25 1631 DD/ 1539 TD/TT: 01/07/25 1600 Grades 1 6 Tutor: Eli Dietz NP IMG XR PROCEDURES Final Result documented in this encounter Visit Diagnoses Diagnosis Acute cough- Primary Left hand pain Pain in soft tissues of limb Dietary counseling Dietary surveillance and counseling Exercise counseling History of carpal tunnel syndrome Mild intermittent asthma, unspecified whether complicated documented in this encounter Additional Health Concerns Assessment Noted Time PHQ-9 Depression Total Score: 13 025 2:56 PM EDT documented as of this encounter Care Teams Computer Terminal Operator Relationship Specialty Start Date End Date Eli Dietz NP [address] [place] [id number] PCP - General Family Medicine 12/02/24 documented as of this encounter
--- OUTSIDE RECORDS SUMMARY | 2025-01-07 18:29 | XMS_ITS | Clinical Summary ---
Author Organization [employer] Address [address] [facility] 7t [place] [address] Care Team Providers Care Mill Tender Washing Name Role Phone Eli Dietz LOGAN Primary Care Provider Allergies No known active allergies Medications lisinopril 40 MG tabletIndication s:Hypertension, unspecified type Take 1 tablet (40 mg) by mouth Once per day. 30 tablet 12/02/2024 12/03/19 26 Active metoprolol succinate XL (Toprol XL) 100 MG 24 hr tabletIndication s:Hypertension, unspecified type Take 1 tablet (100 mg) by mouth Once per day. Do not crush or chew. 30 tablet 12/02/2024 12/03/19 26 Active hydroCHLOROthiaz asher 12.5 MG tabletIndication s:Hypertension, unspecified type Take 1 tablet (12.5 mg) by mouth Once per day. 30 tablet 12/02/2024 12/03/19 26 Active albuterol 108 (90 Base) MCG/ACT inhaler Inhale 2 puffs every 6 (six) hours if needed for wheezing. 18 g 01/07/2025 01/08/20 26 Active nabumetone (Relafen) 500 MG tabletIndication s:Left hand pain Take 1 tablet (500 mg) by mouth 2 times daily for 20 days. 40 tablet 12/02/2024 12/23/19 25 Active Problems Problem Noted Date Diagnosed Date Acute cough 01/07/2025 Exercise counseling 01/07/2025 Assessment & Plan (01/07/2025 2:46 PM EDT): Dietary Recommendations: Fruits, vegetables, whole grains, protein foods, and fat-free or low-fat dairy products are healthy choices. Eat different types of protein foods in your diet. This can include seafood, lean meats, poultry, beans, peas, lentils, nuts, seeds, soy products, and eggs. Limit foods and beverages higher in added sugars, saturated fat, and sodium. Exercise Recommendations: At least 150 minutes of moderate-intensity physical activity per week, or an equivalent combination of moderate- and vigorous-intensity activity Dietary counseling 01/07/2025 Assessment & Plan (01/07/2025 2:30 PM EDT): Encouraged daily movement, working up to 30 minutes daily Dietary Recommendations: Fruits, vegetables, whole grains, protein foods, and fat-free or low-fat dairy products are healthy choices. Eat different types of protein foods in your diet. This can include seafood, lean meats, poultry, beans, peas, lentils, nuts, seeds, soy products, and eggs. Limit foods and beverages higher in added sugars, saturated fat, and sodium. Exercise Recommendations: At least 150 minutes of moderate-intensity physical activity per week, or an equivalent combination of moderate- and vigorous-intensity activity History of carpal tunnel syndrome 01/07/2025 Assessment & Plan (01/07/2025 2:47 PM EDT): See above, brace applied, referral to ortho Pt to resume nocturnal bracing Lower abdominal pain 12/31/2024 Assessment & Plan [...] Call clinic for worsening symptoms Asthma 12/18/2024 Assessment & Plan (01/07/2025 2:37 PM EDT): Resume albuterol prn , suspect allergies HTN (hypertension) 12/18/2024 Left hand pain 12/02/2024 Assessment & Plan (01/07/2025 2:40 PM EDT): Acute swelling s/p carpal tunnel repair limited rom X-ray ordered Possible carpal tunnel symptom however, swelling is unexplained Hx of gout, but never in wrist, Labs as ordered below Assessment & Plan (12/03/2024 11:19 AM EDT): [...] Encounters Date Type Department Care Team Description 01/07/2025 2:40 PM EDT Office Visit [facility] [address] [place] [address] [phone] Eli Dietz NP Acute cough (Primary Dx); Left hand pain; Dietary counseling; Exercise counseling; History of carpal tunnel syndrome; Mild intermittent asthma, unspecified whether complicated 01/07/2025 Travel 01/01/2025 Orders Only [facility] [address] [place] [phone] Eli Dietz NP Lower abdominal pain (Primary Dx) 01/01/2025 Telephone [place] [facility] [address] [place] [address] [phone] Eli Dietz NP 01/01/2025 Telephone [facility] [address] [place] [address] [phone] Marry Guajardo MA Results 12/31/2024 2:00 PM EDT Office Visit [facility] [address] [place] [address] [phone] Eli Dietz NP Primary hypertension (Primary Dx); Lower abdominal pain 12/31/2024 Travel 12/18/2024 Telephone [facility] [address] [place] [address] Marry Guajardo MA Chart Prep 12/03/2024 Telephone [facility] [address] [place] [address] Eli Dietz NP Results 12/02/2024 3:20 PM EDT Office Visit [facility] [address] [place] [phone] Eli Dietz NP Left hand pain (Primary Dx); Hypertension, unspecified type; Swelling 10/19/2024 Refill [facility] [address] [place] [address] Name, MD Ramo from Last 3 Months [...] 3.2 oz) 01/07/2025 2:15 PM EDT Height 177.8 cm (5' 10 ) 12/31/2024 2:22 PM EDT Body Mass Index 33.75 12/31/2024 2:22 PM EDT Plan of Treatment Upcoming Encounters Date Type Department Care Team (Late st Contact Info) Description 01/27/2025 11:30 AM EDT Telemedicine [facility] [address] [place] [address] Eli Dietz NP [address] [place] [address] Health Maintenance Due Date Last Done Comments [...] 2024 02/05/2021, 01/08/2021 Influenza Vaccine (#1) 2024 3, 06/23/2017 Alcohol/Substance Use Screening 12/31/2025 12/31/2024 Depression Screening [...] Comments XR WRIST 3+ VIEWS LEFT Routine 3:39 PM EDT Left hand pain History of carpal tunnel syndrome CBC WITH AUTO DIFFERENTIAL Routine 12/31/2024 2:58 [...] pain from Last 3 Months Results * XR Wrist 3+ Views Left (01/07/2025 3:39 PM EDT) Anatomical Region Laterality Modality Upper Extremities, Wrist Left Radiogr aphic Imaging 01/07/2025 3:39 PM EDT Narrative 01/07/2025 4:34 PM EDT ?[facility] ?[address] ?[place] [address] ?XRay Report ? Signed ? Patient: Hans Staples ?MR# ?? : [id number] ? : 1965 ?Acct:[id number] ? Age/Sex: 59 / M ?ADM Date: 01/07/25 ? Loc: HO.HHCX ? Attending Dr: Eli Dietz BEEF TAGGER ? Ordering Physician: Eli Dietz NP ?? Date of Service: 01/07/25 ?? Procedure(s): XR wrist LT min 3V ?? Accession Number(s): [id number] ? cc: Eli Dietz NP ? EXAMINATION: ?? XR WRIST, LEFT ? [...] DD/ 1539 ? TD/TT: 01/07/25 1600 ? Health Insurance Sales Agent: ? Procedure Note Tanner Avila - 01/07/2025 [facility] [address] [place] [address] XRay Report Signed Patient: Solange Staples# : [id number] : 1965Acct:[id number] Age/Sex: 59 / MADM Date: 01/07/25 Loc: HO.HHCX Attending Dr: Eli Dietz NP Ordering Physician: Eli Dietz NP Date of Service: 01/07/25 Procedure(s): XR wrist LT min 3V Accession Number(s): [id number] cc: Eli Dietz BEEF TAGGER EXAMINATION: XR WRIST, LEFT CLINICAL INFORMATION: acute [...] Nba Nagel MD 01/07/2025 04:31 PM EDT Dictated By: Nba Nagel MD Signed By: <Electronically signed by Nba Nagel MD in OV> 01/07/25 1631 DD/ 1539 TD/TT: 01/07/25 1600 Health Insurance Sales Agent: Eli Dietz NP IMG XR PROCEDURES Final Result * (ABNORMAL) CBC auto differential (12/31/2024 2:58 PM EDT) Only the most recent of2 resultswithin the time period is included. White Blood Count 8.5 4.8 - 10.8 X10*3/uL [facility] Red Blood Count 5.03 4.60 - 5.80 X10*6/uL [facility] Hemoglobin 14.2 14.0 - 18.0 g/dl [facility] Hematocrit 42.6 42.0 - 52.0 % [facility] Mean Corpuscular Volume 84.7 80.0 - 98.0 fL [facility] Mean Corpuscular Hemoglobin 28.2 27.0 - 33.0 pg [facility] Mean Corpuscular HGB Conc 33.3 31.0 - 36.0 g/dl [facility] Red Cell Distribution Width 13.2 11.0 - 16.0 % [facility] Platelet Count 276 160 - 400 X10*3/uL [facility] Mean Platelet Volume 9.8 9.4 - 12.4 fL [facility] Neutrophils Percent Auto 51.2 45 - 73 % [facility] Imm Gran Pct Auto 0.8(H) 0.0 - 0.4 % [facility] Lymphocytes Percent Auto 38.2 20 - 40 % [facility] Monocytes Percent Auto 8.1 2 - 11 % [facility] Eosinophils Percent Auto 0.9 0 - 4 % [facility] Basophils Percent Auto 0.8 0 - 2 % [facility] NRBC Pct Auto 0.0 0.0 - 0.2 /100WBC [facility] Neutrophils Absolute Auto 4.4 2.0 - 8.3 x10*3/uL [facility] Imm Gran Abs Auto 0.07(H) 0.00 - 0.03 X10*3/uL [facility] Lymphocytes Absolute Auto 3.3 1.2 - 4.9 X10*3/uL [facility] Monocytes Absolute Auto 0.7 0.1 - 1.2 X10*3/uL [facility] Eosinophils Absolute Auto 0.1 0.0 - 0.4 X10*3/uL [facility] Basophils Absolute Auto 0.1 0.0 - 0.2 X10*3/uL [facility] NRBC Abs Auto 0.000 0.0 - 0.012 X10*3/uL [facility] Blood Venous blood specimen / Unknown 12/31/2024 2:58 PM EDT 12/31/2024 4:04 PM EDT us Eli Dietz NP LAB BLOOD ORDERABLES Final Resul t [facility] [address] [place] [address] [phone] * Comprehensive Metabolic Panel (12/31/2024 2:58 PM EDT) Only the most recent of2 resultswithin the time period is included. Pathologist [facility] Sodium 144 135 - 145 mmol/L [facility] Potassium 3.7 3.3 - 5.1 mmol/L [facility] Chloride 108 96 - 108 mmol/L [facility] Carbon Dioxide 25 22 - 29 mmol/L [facility] Anion Gap 15 12 - 20 [facility] Urea Nitrogen (BUN) 13 9 - 16 mg/dL [facility] Creatinine, Serum 0.75 0.5 - 1.4 mg/dL [facility] Estimated Glomerular Filt Rate >60 [facility] Comment:Chronic Kidney Disea se: Estimated GFR < 60 mL/min/1.31j7Vinkay Kidney Disease: Estimated GFR < 15 mL/min/1.73m2 Glucose 84 60 - 115 mg/dL [facility] Calcium 9.7 8.4 - 10.2 mg/dL [facility] Bilirubin, Total 0.4 0.0 - 1.0 mg/dL [facility] Aspartate Amino Transferase 27 5 - 37 U/L [facility] Alanine Aminotransferase 38 0 - 40 U/L [facility] Total Protein 7.1 6.5 - 8.0 g/dL [facility] Albumin Level 4.5 3.5 - 5.0 g/dL [facility] Alkaline Phosphatase 89 39 - 117 U/L [facility] Blood Venous blood specimen / Unknown 12/31/2024 2:58 PM EDT 12/31/2024 4:04 PM EDT us Eli Dietz NP LAB BLOOD ORDERABLES Final Resul t [facility] [address] [place] [address] [phone] * (ABNORMAL) Uric acid (12/02/2024 4:02 PM EDT) Uric Acid 10.2(H) 3.4 - 7.0 mg/dL [facility] Blood Venous blood specimen / Unknown 12/02/2024 4:02 PM EDT 12/02/2024 5:25 PM EDT us Eli Dietz BEEF TAGGER LAB BLOOD ORDERABLES Final Resul t [facility] [address] [place] [address] [phone] from Last 3 Months Insurance [facility] C3 HSN PARTIAL Care Teams Mill Tender Washing Relationship Specialty Start Date End Date Eli Dietz NP [address] [place] [address] PCP - General Family Medicine 12/02/24
--- OUTSIDE RECORDS SUMMARY | 2025-01-07 18:29 | XMS_ITS | Encounter Summary ---
Author Organization [employer] Address [address] [facility] 7t [place] [address] Care Team Providers Care Supervisor Metal Fabricating Name Role Phone Eli Dietz LOGAN Primary Care Provider [phone] Encounter Details Date Type Department Care Team (Latest Contact Info) Description 01/07/2025 Travel Social History Tobacco Use Types Packs/Day [...] Info) Description 01/27/2025 11:30 AM EDT Telemedicine [facility] [address] [place] [address] Eli Dietz NP [address] [place] [address] documented as of this encounter Visit Diagnoses Not on filedocumented in this encounter Additional Health Concerns Assessment Noted Time PHQ-9 Depression Total Score: 13 025 2:56 PM EDT documented as of this encounter Care Teams Supervisor Metal Fabricating Relationship Specialty Start Date End Date Eli Dietz NP [address] [place] [address] PCP - General Family Medicine 12/02/24 documented as of this encounter
== END 2025-01-07 15:40 | disposition home or self-care (01) ==
LOC: HO.HHCX 15:39
PROVIDERS: Visit Provider Nurse Practitioner Family
DX: M79.642 Pain in left hand (principal); Z86.69 Personal history of other diseases of the nervous system and sense organs
CPT/HCPCS: 73110

== ENCOUNTER → 2025-01-07 15:39 | Outpatient (BNV) | payer MEDICAID, SELFPAY | PROVIDERS: Visit Provider Radiology Diagnostic Radiology | DX: R22.32 Localized swelling, mass and lump, left upper limb (principal) | CPT/HCPCS: 73110 ==

== ENCOUNTER 2025-01-08 09:30 | Outpatient (REF) | payer MEDICAID, SELFPAY ==
--- OUTSIDE RECORDS SUMMARY | 2025-01-08 10:33 | XMS_ITS | Encounter Summary ---
Author Organization [employer] Address [address] [facility] [address]t [place] [address] Care Team Providers Care Case Filler Name Role Phone Eli Dietz ASSOCIATE DATA SCIENTIST Primary Care Provider [phone] Reason for Visit * Reason Comments Med Refill Encounter Details Date Type Department Care Team (Late Contact Info) Description 10/19/2024 Refill [facility] [address] [place] [phone] Name, MD Ramo [address] [place] [phone] Social History Tobacco Use Types Packs/Day Years [...] Info) Description 01/27/2025 11:30 AM EDT Telemedicine [facility] [address] [place] [phone] Eli Dietz NP [address] [place] [address] documented as of this encounter Visit Diagnoses Not on filedocumented in this encounter Care Teams Case Filler Relationship Specialty Start Date End Date Eli Dietz NP [address] [place] [phone] PCP - General Family Medicine 12/02/24 documented as of this encounter
--- OUTSIDE RECORDS SUMMARY | 2025-01-08 10:33 | XMS_ITS | Clinical Summary ---
Author Organization [facility] Address [address] [place] [address] Care Team Providers Care Hourly Associate Name Role Phone Juan Cherry MD Primary [...] age to complete this topic Care Teams Hourly Associate Relationship Specialty Start Date End Date Juan Cherry MD [address] [place] [address] PCP - General Internal Medicine 01/02/17
--- OUTSIDE RECORDS SUMMARY | 2025-01-08 10:33 | XMS_ITS | Clinical Summary ---
Author Organization [employer] Address [address] [facility] 7t [place] [address] Care Team Providers Care Subcontract Administrator Name Role Phone Eli Dietz LOGAN Primary Care Provider [phone] Allergies No known active allergies Medications lisinopril [...] Description 01/07/2025 2:40 PM EDT Office Visit [facility] [address] [place] [address] [phone] Eli Dietz NP Acute cough (Primary Dx); Left hand pain; Dietary counseling; Exercise counseling; History of carpal tunnel syndrome; Mild intermittent asthma, unspecified whether complicated 01/07/2025 Travel 01/01/2025 Orders Only [facility] [address] [place] [phone] Eli Dietz NP Lower abdominal pain (Primary Dx) 01/01/2025 Telephone [place] [facility] [address] [place] [address] [phone] Eli Dietz NP 01/01/2025 Telephone [facility] [address] [place] [address] [phone] Maryr Guajardo MA Results 12/31/2024 2:00 PM EDT Office Visit [facility] [address] [place] [address] [phone] Eli Dietz NP Primary hypertension (Primary Dx); Lower abdominal pain 12/31/2024 Travel 12/18/2024 Telephone [facility] [address] [place] [address] Marry Guajardo MA Chart Prep 12/03/2024 Telephone [facility] [address] [place] [address] Eli Dietz NP Results 12/02/2024 3:20 PM EDT Office Visit [facility] [address] [place] [phone] Eli Dietz NP Left hand pain (Primary Dx); Hypertension, unspecified type; Swelling 10/19/2024 Refill [facility] [address] [place] [address] Name, MD Ramo from Last 3 Months [...] Info) Description 01/27/2025 11:30 AM EDT Telemedicine [facility] [address] [place] [address] Eli Dietz NP [address] [place] [address] Health Maintenance Due Date Last Done Comments [...] PM EDT Narrative 01/07/2025 4:34 PM EDT ?[facility] ?[address] ?[place] [address] ?XRay Report ? Signed ? Patient: Hans Staples ?MR# ?? : [id number] ? : 1965 ?Acct:[id number] ? Age/Sex: 59 / M ?ADM Date: 01/07/25 ? Loc: HO.HHCX ? Attending Dr: Eli Dietz RFID ANALYST ? Ordering Physician: Eli Dietz NP ?? Date of Service: 01/07/25 ?? Procedure(s): XR wrist LT min 3V ?? Accession Number(s): [id number] ? cc: Eli Dietz NP ? EXAMINATION: [...] DD/ 1539 ? TD/TT: 01/07/25 1600 ? Conference Concierge: ? Procedure Note Tanner Avila - 01/07/2025 [facility] [address] [place] [address] XRay Report Signed Patient: Solange Staples# : [id number] : 1965Acct:[id number] Age/Sex: 59 / MADM Date: 01/07/25 Loc: HO.HHCX Attending Dr: Eli Dietz NP Ordering Physician: Eli Dietz NP Date of Service: 01/07/25 Procedure(s): XR wrist LT min 3V Accession Number(s): [id number] cc: Eli Dietz RFID ANALYST EXAMINATION: XR WRIST, LEFT CLINICAL INFORMATION: acute [...] 01/07/25 1631 DD/ 1539 TD/TT: 01/07/25 1600 Conference Concierge: Eli Dietz NP IMG XR PROCEDURES Final Result * (ABNORMAL) CBC auto differential (12/31/2024 2:58 PM EDT) Only the most recent of2 resultswithin the time period is included. White Blood Count 8.5 4.8 - 10.8 X10*3/uL [facility] Red Blood Count 5.03 4.60 - 5.80 X10*6/uL [facility] Hemoglobin 14.2 14.0 - 18.0 g/dl [facility] Hematocrit 42.6 42.0 - 52.0 % [facility] Mean Corpuscular Volume 84.7 80.0 - 98.0 fL [facility] Mean Corpuscular Hemoglobin 28.2 27.0 - 33.0 pg [facility] Mean Corpuscular HGB Conc 33.3 31.0 - 36.0 g/dl [facility] Red Cell Distribution Width 13.2 11.0 - 16.0 % [facility] Platelet Count 276 160 - 400 X10*3/uL [facility] Mean Platelet Volume 9.8 9.4 - 12.4 fL [facility] Neutrophils Percent Auto 51.2 45 - 73 % [facility] Imm Gran Pct Auto 0.8(H) 0.0 - 0.4 % [facility] Lymphocytes Percent Auto 38.2 20 - 40 % [facility] Monocytes Percent Auto 8.1 2 - 11 % [facility] Eosinophils Percent Auto 0.9 0 - 4 % [facility] Basophils Percent Auto 0.8 0 - 2 % [facility] NRBC Pct Auto 0.0 0.0 - 0.2 /100WBC [facility] Neutrophils Absolute Auto 4.4 2.0 - 8.3 x10*3/uL [facility] Imm Gran Abs Auto 0.07(H) 0.00 - 0.03 X10*3/uL [facility] Lymphocytes Absolute Auto 3.3 1.2 - 4.9 X10*3/uL [facility] Monocytes Absolute Auto 0.7 0.1 - 1.2 X10*3/uL [facility] Eosinophils Absolute Auto 0.1 0.0 - 0.4 X10*3/uL [facility] Basophils Absolute Auto 0.1 0.0 - 0.2 X10*3/uL [facility] NRBC Abs Auto 0.000 0.0 - 0.012 X10*3/uL [facility] Blood Venous blood specimen / Unknown 12/31/2024 2:58 PM EDT 12/31/2024 4:04 PM EDT us Eli Dietz NP LAB BLOOD ORDERABLES Final Resul t [facility] [address] [place] [address] [phone] * Comprehensive Metabolic Panel (12/31/2024 2:58 PM EDT) Only the most recent of2 resultswithin the time period is included. Pathologist [facility] Sodium 144 135 - 145 mmol/L [facility] Potassium 3.7 3.3 - 5.1 mmol/L [facility] Chloride 108 96 - 108 mmol/L [facility] Carbon Dioxide 25 22 - 29 mmol/L [facility] Anion Gap 15 12 - 20 [facility] Urea Nitrogen (BUN) 13 9 - 16 mg/dL [facility] Creatinine, Serum 0.75 0.5 - 1.4 mg/dL [facility] Estimated Glomerular Filt Rate >60 [facility] Comment:Chronic Kidney Disea se: Estimated GFR < 60 mL/min/1.97o7Vhhecu Kidney Disease: Estimated GFR < 15 mL/min/1.73m2 Glucose 84 60 - 115 mg/dL [facility] Calcium 9.7 8.4 - 10.2 mg/dL [facility] Bilirubin, Total 0.4 0.0 - 1.0 mg/dL [facility] Aspartate Amino Transferase 27 5 - 37 U/L [facility] Alanine Aminotransferase 38 0 - 40 U/L [facility] Total Protein 7.1 6.5 - 8.0 g/dL [facility] Albumin Level 4.5 3.5 - 5.0 g/dL [facility] Alkaline Phosphatase 89 39 - 117 U/L [facility] Blood Venous blood specimen / Unknown 12/31/2024 2:58 PM EDT 12/31/2024 4:04 PM EDT us Eli Dietz NP LAB BLOOD ORDERABLES Final Resul t [facility] [address] [place] [address] [phone] * (ABNORMAL) Uric acid (12/02/2024 4:02 PM EDT) Uric Acid 10.2(H) 3.4 - 7.0 mg/dL [facility] Blood Venous blood specimen / Unknown 12/02/2024 4:02 PM EDT 12/02/2024 5:25 PM EDT us Eli Dietz RFID ANALYST LAB BLOOD ORDERABLES Final Resul t [facility] [address] [place] [address] [phone] from Last 3 Months Insurance [facility] C3 HSN PARTIAL Care Teams Subcontract Administrator Relationship Specialty Start Date End Date Eli Dietz NP [address] [place] [address] PCP - General Family Medicine 12/02/24
--- OUTSIDE RECORDS SUMMARY | 2025-01-08 10:34 | XMS_ITS | Encounter Summary ---
Author Organization [employer] Address [address] [facility] 7t [place] [address] Care Team Providers Care Computer Education Teacher Name Role Phone Eli Dietz NP Primary Care Provider [phone] Reason for Referral * Consultation (Urgent) - Authorized Specialty Diagnoses / Procedures Referred By Oli espino Referred To Contact Orthopaedic Surgery Diagnoses Left hand pain Eli Dietz NP [address] [place] [address] Phone: tel: fax: [facility] [address] [place] [address] [address] [place], [place] Phone: tel: fax: Referral ID Status Reason Start Date Expiration Date Visits Requested Visits Authorized [id number] Authorized Specialty Services Required 01/07/2025 01/07/2026 6 6 Reason for Visit * Reason Comments Hand Pain Encounter Details Date Type Department Care Team (Late st Contact Info) Description 01/07/2025 2:40 PM EDT Office Visit [facility] [address] [place] [address] Eli Dietz NP [address] [place], [place] [phone] Acute cough (Primary Dx); Left hand pain; [...] in this encounter Progress Notes * Eli Dietz, LOGAN - 01/07/2025 2:40 PM EDT Subjective: Hans [...] 01/27/2025 11:30 AM EDT Telemedicine [facility] [address] [place] [address] Eli Dietz, LOGAN [address] [place] [address] Scheduled Orders Name Type Priority Associated Diagnoses [...] PM EDT Narrative 01/07/2025 4:34 PM EDT ?[facility] ?[address] ?[place] [address] ?XRay Report ? Signed ? Patient: Hans Staples ?MR# ?? : [id number] ? : 1965 ?Acct:[id number] ? Age/Sex: 59 / M ?ADM Date: 04/22/25 ? Loc: HO.HHCX ? Attending Dr: Eli Dietz SCRAP STRIPPER HAND ? Ordering Physician: Eli Dietz NP ?? Date of Service: 01/07/25 ?? Procedure(s): XR wrist LT min 3V ?? Accession Number(s): [id number] ? cc: Eli Dietz SCRAP STRIPPER HAND ? EXAMINATION: ?? XR WRIST, LEFT ? [...] DD/ 1539 ? TD/TT: 01/07/25 1600 ? Nc Manager: ? Procedure Note Margarita, Image - 01/07/2025 [place] [address] XRay Report Signed Patient: Solange Staples# : [id number] : 1965Acct:[id number] Age/Sex: 59 / MADM Date: 01/07/25 Loc: HO.HHCX Attending Dr: Eli Dietz SCRAP STRIPPER HAND Ordering Physician: Eli Dietz NP Date of Service: 01/07/25 Procedure(s): XR wrist LT min 3V Accession Number(s): [id number] cc: Eli Dietz SCRAP STRIPPER HAND EXAMINATION: XR WRIST, LEFT CLINICAL INFORMATION: acute [...] 01/07/25 1631 DD/ 1539 TD/TT: 01/07/25 1600 Nc Manager: us Eli Dietz NP IMG XR PROCEDURES Final [...] as of this encounter Care Teams Computer Education Teacher Relationship Specialty Start Date End Date Eli Dietz NP [address] [place] [phone] PCP - General Family Medicine 12/02/24 documented as of this encounter
--- OUTSIDE RECORDS SUMMARY | 2025-01-08 10:34 | XMS_ITS | Encounter Summary ---
Author Organization [employer] Address [address] [facility] 7t [place] [address] Care Team Providers Care Fashion Editor Name Role Phone Eli Dietz LOGAN Primary Care Provider [phone] Encounter Details Date Type Department Care Team [...] Info) Description 01/27/2025 11:30 AM EDT Telemedicine [facility] [address] [place] [address] Eli Dietz NP [address] [place] [address] documented as of this encounter Visit Diagnoses Not on filedocumented in this encounter Additional Health Concerns Assessment Noted Time PHQ-9 Depression Total Score: 13 025 2:56 PM EDT documented as of this encounter Care Teams Fashion Editor Relationship Specialty Start Date End Date Eli Dietz NP [address] [place] [address] PCP - General Family Medicine 12/02/24 documented as of this encounter
[2025-01-08 11:33] LABS: MANUAL DIFF FLAG NO
[2025-01-08 11:48] LABS: Basophils Percent Auto 0.6 % (0-2); Eosinophils Absolute Auto 0.1 X10*3/uL (0.0-0.4); Eosinophils Percent Auto 1.1 % (0-4); Hematocrit 38.8 % (42.0-52.0); Hemoglobin 12.9 g/dl (14.0-18.0); Imm Gran Abs Auto 0.04 X10*3/uL (0.00-0.03); Imm Gran Pct Auto 0.6 % (0.0-0.4); Lymphocytes Absolute Auto 2.6 X10*3/uL (1.2-4.9); Lymphocytes Percent Auto 40.5 % (20-40); Mean Corpuscular HGB Conc 33.2 g/dl (31.0-36.0); Mean Corpuscular Hemoglobin 28.2 pg (27.0-33.0); Mean Corpuscular Volume 84.9 fL (80.0-98.0); Mean Platelet Volume 9.6 fL (9.4-12.4); Monocytes Absolute Auto 0.5 X10*3/uL (0.1-1.2); Monocytes Percent Auto 8.1 % (2-11); Neutrophils Absolute Auto 3.1 x10*3/uL (2.0-8.3); Neutrophils Percent Auto 49.1 % (45-73); Platelet Count 231 X10*3/uL (160-400); Red Blood Count 4.57 X10*6/uL (4.60-5.80); Red Cell Distribution Width 13.2 % (11.0-16.0); White Blood Count 6.4 X10*3/uL (4.8-10.8)
[2025-01-08 12:07] LABS: Anion Gap 17 (12-20); Blood Urea Nitrogen 13 mg/dL (9-16); C Reactive Protein 0.94 mg/dL (< or = 0.50); Calcium 9.5 mg/dL (8.4-10.2); Carbon Dioxide 25 mmol/L (22-29); Chloride 103 mmol/L (96-108); Estimated Glomerular Filt Rate > 60; Glucose Random 124 mg/dL (60-115); Potassium 3.5 mmol/L (3.3-5.1); Sodium 141 mmol/L (135-145); Uric Acid 10.9 mg/dL (3.4-7.0)
[2025-01-08 12:52] LABS: Erythrocyte Sedimentation Rate 14 MM/HR (0-15)
== END 2025-01-08 09:31 | disposition home or self-care (01) ==
LOC: HO.HHCL 09:30
PROVIDERS: Visit Provider Nurse Practitioner Family
DX: I10 Essential (primary) hypertension (principal); M79.642 Pain in left hand
CPT/HCPCS: 36415; 80048; 84550; 85025; 85652; 86140

== ENCOUNTER 2025-01-09 14:02 | Outpatient (REF) | payer MEDICAID, SELFPAY ==
--- NOTE | ~2025-01-09 | CT_ITS ---
CLINICAL HISTORY: abdominal pain, diarrhea, r out diverticulitis CT abdomen and pelvis with IV contrast. COMPARISON: None FINDINGS: Partially visualized lung bases are unremarkable. No focal hepatic lesion. Normal gallbladder. Normal spleen. Normal pancreas. Normal adrenal glands. Symmetric renal enhancement. No hydronephrosis. Normal appendix. No bowel obstruction. No evidence of diverticulitis. No mesenteric or retroperitoneal lymphadenopathy. Scattered atherosclerotic plaque present along the nonaneurysmal abdominal aorta without significant stenosis. Urinary bladder is unremarkable given degree of distention. Prostate calcifications present. Moderate right and small left fat containing inguinal hernias. Mild spondylosis. No acute fracture or suspicious bone lesion. IMPRESSION: 1. No cause for patient's symptoms identified. No evidence of appendicitis or diverticulitis. No bowel obstruction. This document has been electronically signed by: Jun Jasso MD on 01/09/2025 15:47:32
[2025-01-09] MEDS: iohexoL 350 MG/ML 100 ML INFUS..BTL IV (14:40)
--- OUTSIDE RECORDS SUMMARY | 2025-01-09 16:29 | XMS_ITS | Encounter Summary ---
Author Organization [employer] Address [address] [facility] 7t [place] [address] Care Team Providers Care Lens Grinder And Polisher Name Role Phone Eli Dietz TIE PRESSER Primary Care Provider [phone] Reason for Visit * Reason Comments Med Refill Encounter Details Date Type Department Care Team (Late Contact Info) Description 10/19/2024 Refill [facility] [address] [place] [phone] Name, MD Ramo [address] [place] [phone] Social History Tobacco Use Types Packs/Day Years [...] Info) Description 01/27/2025 11:30 AM EDT Telemedicine [facility] [address] [place] [phone] Eli Dietz NP [address] [place] [address] documented as of this encounter Visit Diagnoses Not on filedocumented in this encounter Care Teams Lens Grinder And Polisher Relationship Specialty Start Date End Date Eli Dietz NP [address] [place] [address] PCP - General Family Medicine 12/02/24 documented as of this encounter
--- OUTSIDE RECORDS SUMMARY | 2025-01-09 16:29 | XMS_ITS | Encounter Summary ---
Author Organization [employer] Address 75 [facility] 7t [place] [address] Care Team Providers Care Book Critic Name Role Phone Eli Dietz LOGAN Primary Care Provider [phone] Reason for Visit * Reason Onset Date Comments Results 01/09/2025 Encounter Details Date Type Department Care Team ([facility] st Contact Info) Description 01/09/2025 Telephone [facility] [address] [place] [address] Marry Guajardo MA Results Social History Tobacco Use Types Packs/Day Years [...] AM EST documented as of this encounter Miscellaneous Notes * Telephone Encounter - Marry Guajardo MA - 01/09/2025 1:21 PM EDT Related information to PT. Pt understood. * Telephone Encounter - Marry Guajardo MA - 01/09/2025 1:20 PM EDT ----- Message from Eli Dietz sent at 01/07/2025 5:04 PM EDT ----- Please let pt know x-ray was reassuring ----- Message ----- From: Vent[place], Ris Results In Sent: 01/07/2025 4:34 PM EDT To: Eli Dietz NP documented in this encounter Plan of Treatment Upcoming Encounters Date Type Department Care Team (Late st Contact Info) Description 01/27/2025 11:30 AM EDT Telemedicine [facility] [address] [place] [phone] Eli Dietz NP [address] [place] [address] documented as of this encounter Visit Diagnoses Not on filedocumented in this encounter Additional Health Concerns Assessment Noted Time PHQ-9 Depression Total Score: 13 025 2:56 PM EDT documented as of this encounter Care Teams Book Critic Relationship Specialty Start Date End Date Eli Dietz NP [address] [place] [address] PCP - General Family Medicine 12/02/24 documented as of this encounter
--- OUTSIDE RECORDS SUMMARY | 2025-01-09 16:29 | XMS_ITS | Encounter Summary ---
Author Organization [employer] Address [address] [facility] 7t [place] [address] Care Team Providers Care Labor Supervisor Name Role Phone Eli Dietz LOGAN Primary Care Provider [phone] Encounter Details Date Type Department Care Team [...] Info) Description 01/27/2025 11:[address] [facility] [address] [place] [address] Eli Dietz NP [address] [place] [address] documented as of this encounter Visit Diagnoses Not on filedocumented in this encounter Additional Health Concerns Assessment Noted Time PHQ-9 Depression Total Score: 13 025 2:56 PM EDT documented as of this encounter Care Teams Labor Supervisor Relationship Specialty Start Date End Date Eli Dietz NP [address] [place] [address] PCP - General Family Medicine 12/02/24 documented as of this encounter
--- OUTSIDE RECORDS SUMMARY | 2025-01-09 16:29 | XMS_ITS | Encounter Summary ---
Author Organization [employer] Address [address] [facility] 7t [place] [address] Care Team Providers Care Front End Java Developer Name Role Phone Eli Dietz NP Primary Care Provider [phone] Reason for Referral * Consultation (Urgent) - Authorized Specialty Diagnoses / Procedures Referred By Oli espino Referred To Contact Orthopaedic Surgery Diagnoses Left hand pain Eli Dietz NP [address] [place] [address] Phone: tel: fax: [facility] [address] [place] [address] [address] [place], [place] Phone: tel: fax: Referral ID Status Reason Start Date Expiration Date Visits Requested Visits Authorized [id number] Authorized Specialty Services Required 01/07/2025 01/07/2026 6 6 Reason for Visit * Reason Comments Hand Pain Encounter Details Date Type Department Care Team (Late st Contact Info) Description 01/07/2025 2:40 PM EDT Office Visit [facility] [address] [place] [address] Eli Dietz NP [address] [place], [place] [phone] Acute cough (Primary Dx); Left hand pain; [...] Info) Description 01/27/2025 11:30 AM EDT Telemedicine [facility] [address] [place] [address] Eli Dietz NP [address] [place] [address] Scheduled Referrals Name Type Priority Associated Diagnoses Order Schedule Referral to Orthopaedic Surgery Outpatient Referral Urgent Left hand pain Expected: 01/07/2025 (Approximate), Expires: 01/07/2026 documented as of this encounter Procedures Procedure Name Priority Date/Time Associated Diagnosis Comments CBC WITH AUTO DIFFERENTIAL Routine 01/08/2025 9:33 AM EDT Left hand pain SED RATE BY MODIFIED WESTERGREN Routine 01/08/2025 9:33 AM EDT Left hand pain C-REACTIVE PROTEIN Routine 01/08/2025 9: 33 AM EDT Left hand pain URIC ACID Routine 01/08/2025 9:33 AM EDT Left hand pain XR WRIST 3+ VIEWS LEFT Routine 01/07/2025 3:39 PM EDT Left hand pain History of carpal tunnel syndrome documented in this encounter Results * (ABNORMAL) Uric acid (01/08/2025 9:33 AM EDT) Uric Acid 10.9(H) 3.4 - 7.0 mg/dL [facility] Blood Venous blood specimen / Unknown 01/08/2025 9:33 AM EDT 01/08/2025 11:27 AM EDT us Eli Dietz NP LAB BLOOD ORDERABLES Final Resul t [facility] [address] [place] [address] [phone] * (ABNORMAL) C-reactive Protein (01/08/2025 9:33 AM EDT) C Reactive Protein 0.94(H) < or = 0.50 mg/dL [facility] Blood Venous blood specimen / Unknown 01/08/2025 9:33 AM EDT 01/08/2025 11:27 AM EDT us Eli Dietz DYED YARN OPERATOR LAB BLOOD ORDERABLES Final Resul t Performing Organization Address [facility] Co de Phone Number [facility] [address] [place] [address] [phone] * Sed Rate by Modified Westergren (01/08/2025 9:33 AM EDT) Erythrocyte Sedimentation Rate 14 0 - 15 MM/HR [facility] Comment:Patients with polycy themia and many hemoglobin abnormalitiesmay have depressed sed rates whereas patients with anemiamay have elevated sed rates. Blood Venous blood specimen / Unknown 01/08/2025 9:33 AM EDT 01/08/2025 11:27 AM EDT us Eli Dietz DYED YARN OPERATOR LAB BLOOD ORDERABLES Final Resul t Performing Organization Address [facility] Co de Phone Number [facility] [address] [place] [address] [phone] * (ABNORMAL) CBC auto differential (01/08/2025 9:33 AM EDT) White Blood Count 6.4 4.8 - 10.8 X10*3/uL [facility] Red Blood Count 4.57(L) 4.60 - 5.80 X10*6/uL [facility] Hemoglobin 12.9(L) 14.0 - 18.0 g/dl [facility] Hematocrit 38.8(L) 42.0 - 52.0 % [facility] Mean Corpuscular Volume 84.9 80.0 - 98.0 fL [facility] Mean Corpuscular Hemoglobin 28.2 27.0 - 33.0 pg [facility] Mean Corpuscular HGB Conc 33.2 31.0 - 36.0 g/dl [facility] Red Cell Distribution Width 13.2 11.0 - 16.0 % [facility] Platelet Count 231 160 - 400 X10*3/uL [facility] Mean Platelet Volume 9.6 9.4 - 12.4 fL [facility] Neutrophils Percent Auto 49.1 45 - 73 % [facility] Imm Gran Pct Auto 0.6(H) 0.0 - 0.4 % [facility] Lymphocytes Percent Auto 40.5(H) 20 - 40 % [facility] Monocytes Percent Auto 8.1 2 - 11 % [facility] Eosinophils Percent Auto 1.1 0 - 4 % [facility] Basophils Percent Auto 0.6 0 - 2 % [facility] NRBC Pct Auto 0.0 0.0 - 0.2 /100WBC [facility] Neutrophils Absolute Auto 3.1 2.0 - 8.3 x10*3/uL [facility] Imm Gran Abs Auto 0.04(H) 0.00 - 0.03 X10*3/uL [facility] Lymphocytes Absolute Auto 2.6 1.2 - 4.9 X10*3/uL [facility] Monocytes Absolute Auto 0.5 0.1 - 1.2 X10*3/uL [facility] Eosinophils Absolute Auto 0.1 0.0 - 0.4 X10*3/uL [facility] Basophils Absolute Auto 0.0 0.0 - 0.2 X10*3/uL [facility] NRBC Abs Auto 0.000 0.0 - 0.012 X10*3/uL [facility] Blood Venous blood specimen / Unknown 01/08/2025 9:33 AM EDT 01/08/2025 11:27 AM EDT us Eli Dietz NP LAB BLOOD ORDERABLES Final Resul t [facility] [address] [place] [address] [phone] * XR Wrist 3+ Views Left (01/07/2025 3:39 PM EDT) Anatomical Region Laterality Modality Upper Extremities, Wrist Left Radiogr aphic Imaging 01/07/2025 3:39 PM EDT Narrative 01/07/2025 4:34 PM EDT ?[facility] ?[address] ?[place] [address] ?XRay Report ? Signed ? Patient: Hans Staples ?MR# ?? : [id number] ? : 1965 ?Acct:[id number] ? Age/Sex: 59 / M ?ADM Date: 01/07/25 ? Loc: HO.HHCX ? Attending Dr: Eli Dietz DYED YARN OPERATOR ? Ordering Physician: Eli Dietz NP ?? Date of Service: 01/07/25 ?? Procedure(s): XR wrist LT min 3V ?? Accession Number(s): [id number] ? cc: Eli Dietz NP ? EXAMINATION: [...] DD/ 1539 ? TD/TT: 01/07/25 1600 ? Assistant Broker: ? Procedure Note Margarita, Image - 01/07/[address] [address] XRay Report Signed Patient: Solange Staples# : [id number] : 1965Acct:[id number] Age/Sex: 59 / MADM Date: 01/07/25 Loc: HO.HHCX Attending Dr: Eli Dietz DYED YARN OPERATOR Ordering Physician: Eli Dietz NP Date of Service: 01/07/25 Procedure(s): XR wrist LT min 3V Accession Number(s): [id number] cc: Eli Dietz DYED YARN OPERATOR EXAMINATION: XR WRIST, LEFT CLINICAL INFORMATION: acute [...] 01/07/25 1631 DD/ 1539 TD/TT: 01/07/25 1600 Assistant Broker: Eli Dietz DYED YARN OPERATOR IMG XR PROCEDURES Final Result documented in [...] documented as of this encounter Care Teams Front End Java Developer Relationship Specialty Start Date End Date Eli Dietz NP [address] [place] [phone] PCP - General Family Medicine 12/02/24 documented as of this encounter
--- OUTSIDE RECORDS SUMMARY | 2025-01-09 16:29 | XMS_ITS | Clinical Summary ---
Author Organization [employer] Address [address] [facility] 7t [place] [address] Care Team Providers Care Bee Keeper Name Role Phone Eli Dietz LOGAN Primary Care Provider [phone] Allergies No known active allergies Medications lisinopril [...] Encounters Date Type Department Care Team Description 01/09/2025 Telephone [facility] [address] [place] [phone] Marry Guajardo MA Results 01/07/2025 2:40 PM EDT Office Visit [facility] [address] [place] [address] [phone] Eli Dietz NP Acute cough (Primary Dx); Left hand pain; Dietary counseling; Exercise counseling; History of carpal tunnel syndrome; Mild intermittent asthma, unspecified whether complicated 01/07/2025 Travel 01/01/2025 Orders Only [facility] [address] [place] [address] [phone] Eli Dietz NP Lower abdominal pain (Primary Dx) 01/01/2025 Telephone [facility] [address] [place] [address] Eli Dietz NP 01/01/2025 Telephone [facility] [address] [place] [address] [phone] Marry Guajardo MA Results 12/31/2024 2:00 PM EDT Office Visit [facility] [address] [place] [address] [phone] Eli Dietz NP Primary hypertension (Primary Dx); Lower abdominal pain 12/31/2024 Travel 12/18/2024 Telephone [facility] [address] [place] [address] 83058 Marry Guajardo MA Chart Prep 12/03/2024 Telephone [facility] [address] [place] [address] [phone] Eli Dietz NP Results 12/02/2024 3:20 PM EDT Office Visit [facility] [address] [place] [address] [phone] Eli Dietz NP Left hand pain (Primary Dx); Hypertension, unspecified type; Swelling 10/19/2024 Refill [facility] [address] [place] [address] [phone] Name, MD Ramo from Last 3 Months [...] Info) Description 01/27/2025 11:30 AM EDT Telemedicine [facility] [address] [place] [address] Eli Dietz NP [address] [place] [address] Health Maintenance Due Date Last Done Comments [...] Procedure Name Priority Date/Time Associated Diagnosis Comments CT ABDOMEN PELVIS W CONTRAST STAT 01/09/2025 3:47 PM EDT Lower abdominal pain URIC ACID Routine 01/08/2025 9:33 AM EDT Left hand pain C-REACTIVE PROTEIN Routine 01/08/2025 9: 33 AM EDT Left hand pain SED RATE BY MODIFIED WESTERGREN Routine 01/08/2025 9:33 AM EDT Left hand pain CBC WITH AUTO DIFFERENTIAL Routine 01/08/2025 9:33 AM EDT Left hand pain BASIC METABOLIC PANEL Routine 01/08/2025 9:33 AM EDT Hypertension, unspecified type XR WRIST 3+ VIEWS LEFT Routine 3:39 [...] pain from Last 3 Months Results * CT Abdomen Pelvis w/ Contrast (01/09/2025 3:47 PM EDT) Anatomical Region Laterality Modality Body, Pelvis, Abdomen Computed T omography 01/09/2025 3:47 PM EDT Narrative 01/09/2025 3:49 PM EDT ? [facility] ?[address] ?[place] [address] ? CT Scan Report ? Signed ? Patient: Hans Staples ?MR# ?? : [id number] ? : 1965 ?Acct:[id number] ? Age/Sex: 59 / M ?ADM Date: 01/09/25 ? Loc: HO.CT ? Attending Dr: Eli Dietz SALON STYLIST ? Ordering Physician: Eli Dietz SALON STYLIST ?? Date of Service: 01/09/25 ?? Procedure(s): CT abdomen pelvis w IV con ?? Accession Number(s): [id number] ? cc: Eli Dietz SALON STYLIST; Winter [employer] MANAGER [employer] ? Report Number: ?? [id number]: Total DLP = ??614.00 mGy-cm ? CLINICAL HISTORY: abdominal pain, diarrhea, r out diverticulitis ? CT abdomen and pelvis with IV contrast. ? COMPARISON: None ? FINDINGS: ?? Partially visualized lung bases are unremarkable. ?? No focal hepatic lesion. Normal gallbladder. Normal spleen. Normal ?? pancreas. Normal adrenal glands. ?? Symmetric renal enhancement. No hydronephrosis. ? Normal appendix. No bowel obstruction. No evidence of diverticulitis. ?? No mesenteric or retroperitoneal lymphadenopathy. ?? Scattered atherosclerotic plaque present along the nonaneurysmal abdominal ?? aorta without significant stenosis. ? Urinary bladder is unremarkable given degree of distention. ?? Prostate calcifications present. Moderate right and small left fat ?? containing inguinal hernias. ?? Mild spondylosis. No acute fracture or suspicious bone lesion. ? IMPRESSION: ?? 1. No cause for patient's symptoms identified. No evidence of appendicitis ?? or diverticulitis. No bowel obstruction. ? This document has been electronically signed by: Jun Jasso MD on ?? 01/09/2025 15:47:32 ? Dictated By: ?Jun Jasso MD ? Signed By: ?<Electronically signed by Jun Jasso MD in OV> ?01/09/25 1548 ? DD/ 1547 ? TD/TT: 01/09/25 1547 ? Singing Teacher: ? Procedure Note Donbrittanieter, Image - 01/09/[address] [place] [address] [address] Scan Report Signed Patient: Solange Staples# : [id number] : 1965Acct:[id number] Age/Sex: 59 / MADM Date: 01/09/25 Loc: .CT Attending Dr: Eli Dietz SALON STYLIST Ordering Physician: Eli Dietz NP Date of Service: 01/09/25 Procedure(s): CT abdomen pelvis w IV con Accession Number(s): [id number] cc: Eli Dietz SALON STYLIST; Winter Bear [facility] Report Number: [id number]: Total DLP = 614.00 mGy-cm CLINICAL HISTORY: abdominal pain, diarrhea, r out diverticulitis CT abdomen and pelvis with IV contrast. COMPARISON: None FINDINGS: Partially visualized lung bases are unremarkable. No focal hepatic lesion. Normal gallbladder. Normal spleen. Normal pancreas. Normal adrenal glands. Symmetric renal enhancement. No hydronephrosis. Normal appendix. No bowel obstruction. No evidence of diverticulitis. No mesenteric or retroperitoneal lymphadenopathy. Scattered atherosclerotic plaque present along the nonaneurysmal abdominal aorta without significant stenosis. Urinary bladder is unremarkable given degree of distention. Prostate calcifications present. Moderate right and small left fat containing inguinal hernias. Mild spondylosis. No acute fracture or suspicious bone lesion. IMPRESSION: 1. No cause for patient's symptoms identified. No evidence of appendicitis or diverticulitis. No bowel obstruction. This document has been electronically signed by: Jun Jasso MD on 01/09/2025 15:47:32 Dictated By: Jun Jasso MD Signed By: <Electronically signed by Jun Jasso MD in OV> 01/09/25 1548 DD/ 1547 TD/TT: 01/09/25 1547 Singing Teacher: us Eli Dietz NP IMG CT PROCEDURES Final Result * (ABNORMAL) CBC auto differential (01/08/2025 9:33 AM EDT) Only the most recent of3 resultswithin the time period is included. White Blood Count 6.4 4.8 - 10.8 X10*3/uL [facility] Red Blood Count 4.57(L) 4.60 - 5.80 X10*6/uL [facility] Hemoglobin 12.9(L) 14.0 - 18.0 g/dl [facility] Hematocrit 38.8(L) 42.0 - 52.0 % [facility] Mean Corpuscular Volume 84.9 80.0 - 98.0 fL [facility] Mean Corpuscular Hemoglobin 28.2 27.0 - 33.0 pg [facility] Mean Corpuscular HGB Conc 33.2 31.0 - 36.0 g/dl [facility] Red Cell Distribution Width 13.2 11.0 - 16.0 % [facility] Platelet Count 231 160 - 400 X10*3/uL [facility] Mean Platelet Volume 9.6 9.4 - 12.4 fL [facility] Neutrophils Percent Auto 49.1 45 - 73 % [facility] Imm Gran Pct Auto 0.6(H) 0.0 - 0.4 % [facility] Lymphocytes Percent Auto 40.5(H) 20 - 40 % [facility] Monocytes Percent Auto 8.1 2 - 11 % [facility] Eosinophils Percent Auto 1.1 0 - 4 % [facility] Basophils Percent Auto 0.6 0 - 2 % [facility] NRBC Pct Auto 0.0 0.0 - 0.2 /100WBC [facility] Neutrophils Absolute Auto 3.1 2.0 - 8.3 x10*3/uL [facility] Imm Gran Abs Auto 0.04(H) 0.00 - 0.03 X10*3/uL [facility] Lymphocytes Absolute Auto 2.6 1.2 - 4.9 X10*3/uL [facility] Monocytes Absolute Auto 0.5 0.1 - 1.2 X10*3/uL [facility] Eosinophils Absolute Auto 0.1 0.0 - 0.4 X10*3/uL [facility] Basophils Absolute Auto 0.0 0.0 - 0.2 X10*3/uL [facility] NRBC Abs Auto 0.000 0.0 - 0.012 X10*3/uL [facility] Blood Venous blood specimen / Unknown 01/08/2025 9:33 AM EDT 01/08/2025 11:27 AM EDT us Eli Dietz SALON STYLIST LAB BLOOD ORDERABLES Final Resul t [facility] [address] [place] [address] [phone] * Sed Rate by Modified Jose Alfredo (01/08/2025 9:33 AM EDT) Erythrocyte Sedimentation Rate 14 0 - 15 MM/HR [facility] Comment:Patients with polycy themia and many hemoglobin abnormalitiesmay have depressed sed rates whereas patients with anemiamay have elevated sed rates. Blood Venous blood specimen / Unknown 01/08/2025 9:33 AM EDT 01/08/2025 11:27 AM EDT us Eli Dietz SALON STYLIST LAB BLOOD ORDERABLES Final Resul t Performing Organization Address [facility] Co de Phone Number [facility] [address] [place] [phone] * (ABNORMAL) C-reactive Protein (01/08/2025 9:33 AM EDT) C Reactive Protein 0.94(H) < or = 0.50 mg/dL [facility] Blood Venous blood specimen / Unknown 01/08/2025 9:33 AM EDT 01/08/2025 11:27 AM EDT us Eli Dietz SALON STYLIST LAB BLOOD ORDERABLES Final Resul t Performing Organization Address [facility] Co de Phone Number [facility] [address] [place] [address] [phone] * (ABNORMAL) Uric acid (01/08/2025 9:33 AM EDT) Only the most recent of2 resultswithin the time period is included. Pathologist [facility] Uric Acid 10.9(H) 3.4 - 7.0 mg/dL [facility] Blood Venous blood specimen / Unknown 01/08/2025 9:33 AM EDT 01/08/2025 11:27 AM EDT us Eli Dietz SALON STYLIST LAB BLOOD ORDERABLES Final Resul t Performing Organization Address [facility] Co de Phone Number [facility] [address] [place] [phone] * (ABNORMAL) Basic Metabolic Panel (01/08/2025 9:33 AM EDT) Pathologist [facility] Sodium 141 135 - 145 mmol/L [facility] Potassium 3.5 3.3 - 5.1 mmol/L [facility] Chloride 103 96 - 108 mmol/L [facility] Carbon Dioxide 25 22 - 29 mmol/L [facility] Anion Gap 17 12 - 20 [facility] Urea Nitrogen (BUN) 13 9 - 16 mg/dL [facility] Creatinine, Serum 0.79 0.5 - 1.4 mg/dL [facility] Estimated Glomerular Filt Rate >60 [facility] Comment:Chronic Kidney Disea se: Estimated GFR < 60 mL/min/[id number] Kidney Disease: Estimated GFR < 15 mL/min/1.73m2 Glucose 124(H) 60 - 115 mg/dL [facility] Calcium 9.5 8.4 - 10.2 mg/dL [facility] Blood Venous blood specimen / Unknown 01/08/2025 9:33 AM EDT 01/08/2025 11:27 AM EDT us Eli Dietz SALON STYLIST LAB BLOOD ORDERABLES Final Resul t [facility] [address] [place] [address] [phone] * XR Wrist 3+ Views Left (01/07/2025 3:39 PM EDT) Anatomical Region Laterality Modality Upper Extremities, Wrist Left Radiogr aphic Imaging 01/07/2025 3:39 PM EDT Narrative 01/07/2025 4:34 PM EDT ?[facility] ?[address] ?[place] [address] ?XRay Report ? Signed ? Patient: Matthew Scruggs,Hans ?MR# ?? : [id number] ? : 1965 ?Acct:[id number] ? Age/Sex: 59 / M ?ADM Date: 04/22/25 ? Loc: HO.HHCX ? Attending Dr: Eli Dietz SALON STYLIST ? Ordering Physician: Eli Dietz SALON STYLIST ?? Date of Service: 01/07/25 ?? Procedure(s): XR wrist LT min 3V ?? Accession Number(s): [id number] ? cc: Eli Dietz SALON STYLIST ? EXAMINATION: ?? XR WRIST, LEFT ? [...] DD/ 1539 ? TD/TT: 01/07/25 1600 ? Singing Teacher: ? Procedure Note Margarita, Image - 01/07/[address] [address] XRay Report Signed Patient: Solange Staples# : [id number] : 1965Acct:[id number] Age/Sex: 59 / MADM Date: 01/07/25 Loc: HO.HHCX Attending Dr: Eli Dietz SALON STYLIST Ordering Physician: Eli Dietz NP Date of Service: 01/07/25 Procedure(s): XR wrist LT min 3V Accession Number(s): [id number] cc: Eli Dietz SALON STYLIST EXAMINATION: XR WRIST, LEFT CLINICAL INFORMATION: acute [...] 01/07/25 1631 DD/ 1539 TD/TT: 01/07/25 1600 Singing Teacher: us Eli Dietz SALON STYLIST IMG XR PROCEDURES Final Result * Comprehensive Metabolic Panel (12/31/2024 2:58 PM EDT) Only the most recent of2 resultswithin the time period is included. Sodium 144 135 - 145 mmol/L [facility] Potassium 3.7 3.3 - 5.1 mmol/L [facility] Chloride 108 96 - 108 mmol/L [facility] Carbon Dioxide 25 22 - 29 mmol/L [facility] Anion Gap 15 12 - 20 [facility] Urea Nitrogen (BUN) 13 9 - 16 mg/dL [facility] Creatinine, Serum 0.75 0.5 - 1.4 mg/dL [facility] Estimated Glomerular Filt Rate >60 [facility] Comment:Chronic Kidney Disea se: Estimated GFR < 60 mL/min/[id number] Kidney Disease: Estimated GFR < 15 mL/min/1.73m2 Glucose 84 60 - 115 mg/dL [facility] Calcium 9.7 8.4 - 10.2 mg/dL [facility] Bilirubin, Total 0.4 0.0 - 1.0 mg/dL [facility] Aspartate Amino Transferase 27 5 - 37 U/L [facility] Alanine Aminotransferase 38 0 - 40 U/L [facility] Total Protein 7.1 6.5 - 8.0 g/dL [facility] Albumin Level 4.5 3.5 - 5.0 g/dL [facility] Alkaline Phosphatase 89 39 - 117 U/L [facility] Blood Venous blood specimen / Unknown 12/31/2024 2:58 PM EDT 12/31/2024 4:04 PM EDT us Eli Dietz NP LAB BLOOD ORDERABLES Final Resul t [facility] [address] [place] [address] [phone] from Last 3 Months Insurance [facility] C3 HSN PARTIAL Care Teams Bee Keeper Relationship Specialty Start Date End Date Eli Dietz NP [address] [place] [phone] PCP - General Family Medicine 12/02/24
--- OUTSIDE RECORDS SUMMARY | 2025-01-09 16:29 | XMS_ITS | Clinical Summary ---
Author Organization [facility] it[facility] Address [address] [place] [address] Care Team Providers Care Assisted Living Executive Director Name Role Phone Juan Cherry MD Primary [...] age to complete this topic Care Teams Assisted Living Executive Director Relationship Specialty Start Date End Date Juan Cherry MD [address] [place] [address] PCP - General Internal Medicine 01/02/17
== END 2025-01-09 14:03 | disposition home or self-care (01) ==
LOC: HO.CT 14:02
PROVIDERS: PCP Nurse Practitioner Family; Visit Provider Nurse Practitioner Family
DX: R10.30 Lower abdominal pain, unspecified (principal)
CPT/HCPCS: 74177; Q9967

== ENCOUNTER → 2025-01-09 14:04 | Outpatient (BNV) | payer MEDICAID, SELFPAY | PROVIDERS: PCP Nurse Practitioner Family; Visit Provider Radiology Diagnostic Radiology | DX: R10.9 Unspecified abdominal pain (principal); R19.7 Diarrhea, unspecified | CPT/HCPCS: 74177 ==

== ENCOUNTER 2025-04-01 14:37 | Outpatient (REF) | payer MEDICAID, SELFPAY ==
--- OUTSIDE RECORDS SUMMARY | 2025-04-01 15:58 | XMS_ITS | Clinical Summary ---
Author Organization [facility] ity Address [address] [place] [address] Care Team Providers Care Museum Preparator Name Role Phone Juan Cherry MD Primary [...] 2023-2 5 season) 2024 Influenza Vaccine (#1) 2025 06/23/2017 DTaP,Tdap,and Td Vaccines (2 - Td [...] age to complete this topic Care Teams Museum Preparator Relationship Specialty Start Date End Date Juan Cherry MD [address] [place] [address] PCP - General Internal Medicine 01/02/17
--- OUTSIDE RECORDS SUMMARY | 2025-04-01 15:58 | XMS_ITS | Encounter Summary ---
Author Organization [employer] Address [address] [facility] 7t [place] [address] Care Team Providers Care Glass Processing Worker Name Role Phone Eli Dietz NP Primary Care Provider [phone] Reason for Visit * Reason Comments Med Refill Encounter Details Date Type Department Care Team (Late Contact Info) Description 10/19/2024 Refill [facility] [address] [place] [phone] Name, MD Ramo [address] [place] [phone] Social History Tobacco Use Types Packs/Day Years [...] Department Care Team (Late Contact Info) Description 04/23/2025 10:15 AM EDT Office Visit [facility] [address] [place] [phone] Eli Dietz NP [address] [place] [address] documented as of this encounter Visit Diagnoses Not on filedocumented in this encounter Care Teams Glass Processing Worker Relationship Specialty Start Date End Date Eli Deitz NP [address] [place] [address] PCP - General Family Medicine 12/02/24 documented as of this encounter
[2025-04-01 16:53] LABS: Uric Acid 5.5 mg/dL (3.4-7.0)
== END 2025-04-01 14:38 | disposition home or self-care (01) ==
LOC: HO.HHCL 14:37
PROVIDERS: PCP Family Medicine; Visit Provider Nurse Practitioner Family
DX: M10.9 Gout, unspecified (principal)
CPT/HCPCS: 36415; 84550

== ENCOUNTER 2025-04-28 10:55 | Outpatient (REF) | payer MEDICAID, SELFPAY ==
--- OUTSIDE RECORDS SUMMARY | 2025-04-28 11:38 | XMS_ITS | Encounter Summary ---
Author Organization [facility] Address [address] [facility] [address] [place] [address] Care Team Providers Care Securities And Real Estate Director Name Role Phone Eli Dietz NP Primary Care Provider [phone] Reason for Visit * Reason Comments Med Refill Encounter Details Date Type Department Care Team (Late st Contact Info) Description 10/19/2024 Refill [facility] [address] [place] [phone] Name, MD Ramo [address] [place] [phone] Social History Tobacco Use Types Packs/Day Years [...] Care Team (Late st Contact Info) Description 05/13/2025 1:30 PM EDT Office Visit [facility] [address] [place] [phone] Eli Dietz NP [address] [place] [phone] 06/23/2025 3:15 PM EDT Office Visit [address] [address] Eli Dietz NP [address] [place] [address] documented as of this encounter Visit Diagnoses Not on filedocumented in this encounter Care Teams Securities And Real Estate Director Relationship Specialty Start Date End Date Eli Dietz NP [address] [place] [address] [phone] PCP - General Family Medicine 12/02/24 documented as of this encounter
--- OUTSIDE RECORDS SUMMARY | 2025-04-28 11:38 | XMS_ITS | Clinical Summary ---
Author Organization [facility] ity Address [address] [place] [address] Care Team Providers Care Welding Machine Operator Thermit Name Role Phone Juan Cherry MD Primary [...] Panel) 08/21/2022 Colorectal Cancer Screening: Colonoscopy 08/21/2022 HIV Screening 08/21/2022 Hepatitis C Screening 08/21/2022 Social Influencers of Health Screening 08/21/2022 Hypertension/CHF/CAD Annual BMP Blood Test 08/31/2022 COVID-19 Vaccine (1 - 2023-2 5 season) 2024 Depression Screening 09/18/2024 Influenza Vaccine (#1) 2025 06/23/2017 DTaP,Tdap,and Td [...] age to complete this topic Care Teams Welding Machine Operator Thermit Relationship Specialty Start Date End Date Juan Cherry MD [address] [place] [address] PCP - General Internal Medicine 01/02/17
[2025-04-28 13:23] LABS: MANUAL DIFF FLAG NO
[2025-04-28 13:43] LABS: Hematocrit 46.1 % (42.0-52.0); Hemoglobin 15.1 g/dl (14.0-18.0); Imm Gran Abs Auto 0.04 X10*3/uL (0.00-0.03); Imm Gran Pct Auto 0.5 % (0.0-0.4); Lymphocytes Absolute Auto 3.2 X10*3/uL (1.2-4.9); Mean Corpuscular HGB Conc 32.8 g/dl (31.0-36.0); Mean Corpuscular Hemoglobin 28.0 pg (27.0-33.0); Mean Corpuscular Volume 85.5 fL (80.0-98.0); NRBC Abs Auto 0.000 X10*3/uL (0.0-0.012); NRBC Pct Auto 0.0 /100WBC (0.0-0.2); Platelet Count 289 X10*3/uL (160-400); Red Blood Count 5.39 X10*6/uL (4.60-5.80); White Blood Count 7.4 X10*3/uL (4.8-10.8)
[2025-04-28 13:51] LABS: Alanine Aminotransferase 27 U/L (0-40); Albumin Level 4.3 g/dL (3.5-5.0); Alkaline Phosphatase 104 U/L (39-117); Anion Gap 11 (12-20); Aspartate Amino Transferase 32 U/L (5-37); Blood Urea Nitrogen 16 mg/dL (9-16); Calcium 9.2 mg/dL (8.4-10.2); Carbon Dioxide 27 mmol/L (22-29); Chloride 107 mmol/L (96-108); Cholesterol 201 mg/dL (<200); Estimated Glomerular Filt Rate > 60; HDL Cholesterol 48 mg/dL (>40); Potassium 4.0 mmol/L (3.3-5.1); Sodium 141 mmol/L (135-145); Total Protein 7.0 g/dL (6.5-8.0); Triglycerides 115 mg/dL (<150); Uric Acid 3.3 mg/dL (3.4-7.0)
[2025-04-28 14:22] LABS: Uric Acid 3.3 mg/dL (3.4-7.0)
[2025-04-29 08:51] LABS: HIV Num 1 0.05 S/CO (0.00-0.99); ~HepC Num1 0.10 S/CO (0.00-0.79); ~Hepatitis C Antibody Nonreactive (Nonreactive)
== END 2025-04-28 10:56 | disposition home or self-care (01) ==
LOC: HO.HHCL 10:55
PROVIDERS: PCP Family Medicine; Referring Provider Nurse Practitioner Family; Visit Provider Family Medicine
DX: Z11.4 Encounter for screening for human immunodeficiency virus [HIV] (principal); Z11.59 Encounter for screening for other viral diseases; M10.00 Idiopathic gout, unspecified site; I10 Essential (primary) hypertension
CPT/HCPCS: 36415; 80053; 80061; 84550; 85025; 85652; 86140; 86803; 87389